=== PATIENT | female | born 1950 | race Caucasian/White ===

== ENCOUNTER → 2016-11-03 | Outpatient (CLI) | payer MEDICARE ==
[~2016-11-03] MED LIST: /LANS30GR; ADVAIR INH; ALLE25CA PO; AMLO10TAB PO; CALCCHW12 PO; CLAR5CHW; CYCL10TA3 PO; EPIP0.3I INJ; ESTR0.03 TOP; FLEXERIL; FOLI1TAB OR; HYDR10TA16 PO; HYDROCODONE PO; HYDROCORTISONE0.5 %; HYDRPOW28 PO; IBUP600T; LEVOXYL25 MCG PO; LIDO5DIS TOP; LISI10TA4 PO; MAXA10TA17 PO; MELOPOW PO; METH10TA2 PO; METH2.5T OR; METR0.00 TOP; MULTIVIT PO; OMEP20CA3 PO; OXYC10TA97 PO; PHEN 25 PO; PREV15CA PO; PREV30CA11 PO; RITA30CA; SERT100T PO; TRIAMCINOLONE TOP; VITA400C29 PO; VITACAP33 PO; VITAMIN B COMPLE1 PO; VITC PO; VITD PO; clobetasol TOP; mobic PO
[2016-11-03 13:50] LABS: BASO % 0.4 % (0.0-1.0); EOS % 0.7 % (0.0-3.0); LARGE UNSTAINED CELL # 0.1 K/mm3 (0.0-0.4); LARGE UNSTAINED CELL % 0.7 % (0.0-4.0); LYMPH # 0.8 K/mm3 (1.5-4.5); LYMPH % 10.4 % (24.0-44.0); MEAN CORPUSCULAR HEMOGLOBIN 31.7 pg (27.0-33.0); MEAN CORPUSCULAR HGB CONC 32.4 g/dl (32.0-36.5); MEAN CORPUSCULAR VOLUME 97.7 fl (80.0-96.0); MONO # 0.4 K/mm3 (0.0-0.8); MONO % 5.9 % (0.0-5.0); NEUTROPHILS # 5.7 K/mm3 (1.8-7.7); PLATELET COUNT, AUTOMATED 222 k/mm3 (150-450); RED CELL DISTRIBUTION WIDTH 14.5 % (11.5-14.5); WHITE BLOOD COUNT 6.9 K/mm3 (4.0-10.0)
[2016-11-03 14:49] LABS: ALT/SGPT 22 U/L (12-78); BLOOD UREA NITROGEN 15 MG/DL (7-18); CREATININE FOR GFR 0.99 MG/DL (0.55-1.02); GLOMERULAR FILTRATION RATE > 60.0 (>45)
== END ==
LOC: M WUC 10:37
PROVIDERS: ATTEND Internal Medicine Rheumatology
DX: M05.79 Rheumatoid arthritis with rheumatoid factor of multiple sites without organ or systems involvement (principal); N18.2 Chronic kidney disease, stage 2 (mild); Z51.81 Encounter for therapeutic drug level monitoring; Z79.899 Other long term (current) drug therapy

== ENCOUNTER → 2016-12-05 | Outpatient (CLI) | payer MEDICARE ==
--- NOTE | 2016-12-08 00:43 | ECWPNPC ---
PATIENT NAME: AMIE BRYANT : 1950 GENDER: FEMALE VISIT DATE: 12/05/2016 DISCHARGE DATE: 12/05/16 1029 VISIT LOCKED DATE TIME: PHYSICIAN: VALE VILLANUEVA RESOURCE: VALE VILLANUEVA REASON FOR APPOINTMENT 1. CHRONIC PAIN HISTORY OF PRESENT ILLNESS HISTORY OF PRESENT ILLNESS: PAIN THE PATIENT DESCRIBES THE PAIN... FALL RISK SCREENING: SCREENING :NO FALLS IN THE PAST YEAR TODAY'S VISIT: NOTES: RATES PAIN TODAY 3/10. DESCRIBES PAIN CONSTANT WITH INTERMITTENT EXACERBATIONS. NOTES IT IS ACHING AND BURNING SHARP STABBING TENDER SORE AND SHOOTING. HAS NEW ONSET OF LEFT CARPAL TUNNEL ISSUES AND TENNIS ELBOW. IS BEING TREATED BY NCO. REPORTS HER MEDICATIONS FOR PAIN CONTINUE TO PROVIDE RELIEF. STATES SHE HAS HAD NO ADVERSE REACTIONS. STATES THAT SHE TAKES THEM ONLY ORDERED.. CURRENT MEDICATIONS TAKING NORVASC 10 MG TABLET 1 TABLET ORALLY ONCE A DAY TAKING LUBRICANTS EYE GTTS/OTC LIQUID 1-2 DROPS OU NEEDED TAKING LEVOTHYROXINE SODIUM 100 MCG TABLET 1 TABLET EVERY MORNING ON AN EMPTY STOMACH ORALLY ONCE A DAY TAKING LIDODERM 5 % PATCH 1 PATCH TO INTACT SKIN REMOVE AFTER 12 HOURS EXTERNALLY ONCE A DAY NEEDED FOR SEVERE TENDER POINT PAIN TAKING MAXALT 10 MG TABLET 1 TABLET ORALLY NEEDED TAKING PREVACID 30 MG CAPSULE DELAYED RELEASE 1 CAPSULE BEFORE A MEAL ORALLY ONCE A DAY TAKING PROMETHAZINE HCL 25 MG TABLET 1 TAB(S) ORALLY EVERY 8 HOURS NEEDED TAKING VITAMIN B COMPLEX OTC TABLET 1 TABLET ORALLY ONCE A DAY TAKING VITAMIN C 500 MG TABLET 1 TABLET ORALLY TWICE A DAY TAKING CALCIUM + D 630MG/500IU TABLET 1 TABLET ORALLY TWICE A DAY TAKING VITAMIN D 2000 UNIT TABLET 1 CAPSULE ORALLY ONCE A DAY TAKING MULTIVITAMINS OTC TABLET 1 TABLET ORALLY ONCE A DAY TAKING CLOBETASOL PROPIONATE 0.05 % OINTMENT 1 APPLICATION TO AFFECTED AREA EXTERNALLY NEEDED TAKING FOLIC ACID 1 MG TABLET 1 TABLET ORALLY ONCE A DAY TAKING METHOTREXATE 2.5 MG TABLET 3 TABLETS ORALLY ONCE A WEEK TAKING SERTRALINE HCL 100 MG TABLET 1 TABLET ORALLY ONCE A DAY TAKING HYDROXYZINE HCL 10 MG TABLET 1 TABLET ORALLY NEEDED FOR ITCHING TAKING METRONIDAZOLE 0.75 % CREAM 1 APPLICATION TO AFFECTED AREA EXTERNALLY TWICE A DAY TAKING CYCLOBENZAPRINE HCL 10 MG TABLET 1 TABLET ORALLY TWICE A DAY NEEDED TAKING METHADONE HCL 10 MG TABLET 1 TABLET ORALLY EVERY 6 HRS. MDD= 4 CHRONIC PAIN TAKING NORCO 7.5-325 MG TABLET 1 1/2 TABLET ORALLY EVERY 4-6 HOURS PRN PAIN MDD=5 NOT-TAKING EPIPEN 0.3 MG/0.3ML (1:1000) DEVICE DIRECTED INTRAMUSCULAR NEEDED NOT-TAKING NORCO 7.5-325 MG TABLET 1 - 1 1/2 TABLET ORALLY EVERY 4 HRS PRN PAIN MDD=5 NOT-TAKING MELOXICAM 7.5 MG TABLET 1 TABLET ORALLY ONCE A DAY NEEDED FOR ARTHRITIC PAIN NOT-TAKING CLIMARA 0.025 MG/24HR PATCH WEEKLY 1 PATCH TO SKIN TO CLEAN, DRY SKIN TRANSDERMAL WEEKLY NOT-TAKING OXYCONTIN 40 MG TABLET EXTENDED RELEASE 12 HOUR 1 TABLET ORALLY EVERY 12 HRS NOT-TAKING LISINOPRIL 20 30 MG TABLET 1 TABLET ORAL ONCE A DAY NOT-TAKING CLIMARA 0.0375 MG/24HR PATCH WEEKLY 1 PATCH TO SKIN TO CLEAN, DRY SKIN TRANSDERMAL WEEKLY NOT-TAKING CLIMARA 0.05 MG/24HR PATCH WEEKLY 1 PATCH TO CLEAN, DRY SKIN TRANSDERMAL WEEKLY NOT-TAKING SALINE NASAL SPRAY 0.65 % SOLUTION 2 DROPS IN EACH NOSTRIL NEEDED NASALLY TWICE A DAY NEEDED DISCONTINUED NORCO 7.5-325 MG TABLET 1 TABLET NEEDED ORALLY Q4H PRN MDD5 DISCONTINUED HYDROCODONE-ACETAMINOPHEN 7.5/325 MG. 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[place], ?LUPUS CARPAL TUNNEL SYNDROME INFLAMMATORY ARTHRITIS RHEUMATOID ARTHRITIS TENDONITIS LEFT ELBOW ALLERGIES ALTACE: FATIGUE: SIDE EFFECTS METOPROLOL SUCCINATE: MUSCLE PAIN ,SOB: SIDE EFFECTS MORPHINE SULFATE: PAIN,CONSTIPATION,DRY MOUTH,SOB: SIDE EFFECTS NEURONTIN: DOES NOT HELP PAIN, WEIGHT GAIN: SIDE EFFECTS NORTRIPTYLINE HCL: NAUSEA/VOMITING: SIDE EFFECTS NORVASC: HIVES,SWELLING IN ANKLES, FEET AND EYELIDS: ALLERGY PRUDOXIN: ARMS TURNED RED AND SWELLED UP,FATIGUE: ALLERGY ROZEREM: MUSCLE AND JOINT PAIN: SIDE EFFECTS SONATA: SEVERE ITCHING: ALLERGY TOPAMAX: MUSCLE AND JOINT PAIN,EXHAUSTION: SIDE EFFECTS TRAMADOL-ACETAMINOPHEN: HEADACHES, MOUTH SORES: SIDE EFFECTS TRAZODONE HCL: SEVERE MUSCLE PAIN: SIDE EFFECTS AMOXICILLIN: SEVERE ITCHING, HIVES: ALLERGY OXYCODONE: HIVES,GENERIC FORM: ALLERGY METHADONE: INCREASED PAIN: SIDE EFFECTS INDERAL: CONFUSION: SIDE EFFECTS METHYLPHENIDATE: HIVES,RASH,FACIAL SWELLING: ALLERGY LYRICA: STOPPED WORKING, SWELLING OF HANDS AND FEET, WEIGHT GAIN: SIDE EFFECTS AMBIEN: DIZZINESS: SIDE EFFECTS AVAPRO: ITCHING AND FACIAL SWELLING: ALLERGY BIAXIN: NAUSEA/VOMITING: SIDE EFFECTS BYSTOLIC: PAIN AND ELECTRIC CURRENT SENSATION IN LEGS AND FEET: SIDE EFFECTS CARDIZEM: ITCHING,RASH: ALLERGY CLONIDINE HCL: MUSCLE AND JOINT PAIN: SIDE EFFECTS COLCHICINE: AFTER A FEW DAYS CAUSED INTENSE PAIN: ALLERGY COREG: MUSCLE PAIN: SIDE EFFECTS DYNACIRC CR: MIGRAINES: SIDE EFFECTS EFFEXOR: SOB,EXHAUSTION/GENERIC FORM: SIDE EFFECTS ESTRATEST H.S.: ITCHING, RASH: ALLERGY HYDRALAZINE HCL: RASH, SWELLING LEFT SIDE OF NECK,SEVERE CONSTIPATION, PAIN, WEAK: ALLERGY HYDROCHLOROTHIAZIDE: RASH, ITCHING: ALLERGY KETOPROFEN: HIVES,ITCHING, FACIAL SWELLING: ALLERGY LEVOXYL: CONSTIPATION/UPSET STOMACH: SIDE EFFECTS SULFA (FOR ALLERGY USE ONLY): ITCHING,RASH: ALLERGY NASONEX: MIGRAINES, NASAL PASSAGES VERY SORE: SIDE EFFECTS ADVIL: ITCHING, FACIAL SWELLING: ALLERGY CARDURA: ITCHING, RASH, FACIAL SWELLING, FREQUENT URINATION: ALLERGY IBUPROFEN: ITCHING, FACIAL SWELLING: ALLERGY AZELASTINE HCL: FELT VERY ILL: SIDE EFFECTS ASMANEX 120 METERED DOSES: EXHAUSTED AND WEAK, DID NOT HELP BREATHING: SIDE EFFECTS BACLOFEN: INTENSEPAIN AFTER A COUPLE WEEKS: SIDE EFFECTS LISINOPRIL: ANAPHYLAXIS: ALLERGY LISINOPRIL: SWELLING OF THROAT HIVES: ALLERGY SURGICAL HISTORY SHARIF/BSO 1997 TONSILLECTOMY CARPAL TUNNEL R LAPAROTOMY SEVERAL D & C'S COLONOSCOPY/ENDOSCOPY 01/2012 CARDIAC CATHETERIZATION SOCIAL HISTORY GENERAL: TOBACCO USE ARE YOU A:NONSMOKER LEARNING BARRIERS / SPECIAL NEEDS ORIENTED TO PLAN OF CARE: PATIENT, PAIN MANAGEMENT PATIENT, ORIENTED TO PLAN OF CARE: PATIENT, PAIN MANAGEMENT PATIENT. NEW PATIENT PAIN DIARY TODAY'S VISITNOTES FROM 0-10, WHAT LEVEL IS YOUR PAIN TODAY?0 PAIN CLINIC PFS, CLERGY, PUBLIC HEALTH REFERRALS PFS REFERRAL NEEDED?NO CLERGY REFERRAL NEEDED?NO PUBLIC HEALTH REFERRAL NEEDED?NO WAS THE PROVIDER NOTIFIED OF ANY PERTINENT INFO?NO PFS REFERRAL NEEDED?NO CLERGY REFERRAL NEEDED?NO PUBLIC HEALTH REFERRAL NEEDED?NO WAS THE PROVIDER NOTIFIED OF ANY PERTINENT INFO?NO REVIEW OF SYSTEMS CONSTITUTIONAL: LEVEL OF ENERGY NOTES INCREASED SENSITIVITY TO FOODS. . ANY CHANGE IN YOUR MEDICAL CONDITION? NO . CHILLS NO . FEVER NO . INFECTION: DO YOU HAVE NEW INFECTIONS? NO . DO YOU HAVE HISTORY OF MRSA? NO . MUSCULOSKELETAL: ANY NEW PATTERNS OF PAIN OR NUMBNESS? YES, TENDONITIS LEFT ELBOW AND CARPAL TUNNEL LEFT IS BOTHERING HER MORE . GASTROENTEROLOGY: GENERAL NAUSEA WITH CERTAIN FOODS . ANY NEW CHANGE IN BOWEL CONTROL? NO . GENITOURINARY: ANY NEW CHANGE IN BLADDER CONTROL? NO . IS THERE A CHANCE YOU COULD BE ? NO . HEMATOLOGY/LYMPH: DO YOU TAKE ANY BLOOD THINNERS? (FOR EXAMPLE- COUMADIN, PLAVIX, AGGRENOX, PLATEL, PRADAXA, OR XARELTO) NO . WHEN WAS YOUR LAST DOSE? DATE: TIME: . NEUROLOGY: HAVE YOU FALLEN IN THE PAST 6 MONTHS? NO . ANY NEW EXTREMITY NUMBNESS OR WEAKNESS? NO . CARDIOLOGY: DO YOU HAVE A PACEMAKER OR DEFIBRILLATOR? NO . CHEST PAIN PATIENT DENIES . RESPIRATORY: HAVE YOU BEEN SICK IN THE PAST WEEK? NO DID HAVE RECENT URI . FEVER NO . FLU LIKE SYMPTOMS? NO . COUGH NO . INTEGUMENTARY: DO YOU HAVE ANY RASHES OR OPEN SORES? NO . ALLERGIC/IMMUNO: ARE YOU ALLERGIC TO SHELLFISH OR IV DYE? NO . ANY NEW ALLERGIES? NO . PSYCHIATRIC: DO YOU HAVE THOUGHTS OF HURTING YOURSELF OR SOMEONE ELSE? NO . ARE YOU ABUSED, NEGLECTED, OR IN AN UNSAFE ENVIRONMENT? NO . ENDOCRINOLOGY: ARE YOU DIABETIC? NO . OTHER: DO YOU NEED ANY PRESCRIPTIONS? NO . IF YES, PLEASE LIST: ____ . ANY NEW PROBLEMS WITH YOUR MEDICATIONS? NO . WHEN DID YOU LAST EAT? ____ . WHEN DID YOU LAST DRINK? ____ . WHAT DID YOU LAST DRINK? ____ . NAME OF PERSON DRIVING YOU HOME? ____ . DO YOU HAVE ANY OTHER QUESTIONS OR CONCERNS NO . REVIEWED BY: PROVIDER: VALE JOHNSON . VITAL SIGNS WT 165.4 LBS, HT 63", BMI 29.30 INDEX, BP 170/92 MM HG, HR 109 /MIN, RR 18 /MIN, TEMP 97.8 F, OXYGEN SAT % 99%, NA INITIALS SC 09:49, REVIEWED BY: AD. EXAMINATION GENERAL EXAMINATION: LUNGS:CLEAR TO AUSCULTATION BILATERALLY. HEART:HEART RATE REGULAR. MUSCULOSKELETAL:GENERALIZED TENDERNESS ABOVE/BELOW WAIST, BOTH SIDES OF BODY, CONSISTANT WITH FIBROMYALGIA. POINT TENDERNESS OVER MID THORACIC SPINOUS PROCESSES. NEUROLOGIC EXAM:POSITIVE TINELS LEFT WRIST - MILD TENDERNESS. ASSESSMENTS FIBROMYALGIA - M79.7 (PRIMARY) CHRONIC PRESCRIPTION OPIATE USE - Z79.891 TREATMENT FIBROMYALGIA NOTES: CONTINUE CURRENT MEDS.KEEP ACTIVE POSSIBLE. REST WHEN NEEDED, FALLS CARE PLAN: 1. RECOMMEND REMOVING ALL THROW RUGS. 2. RECOMMEND NIGHT LIGHTS 3. RECOMMEND WEARING RUBBER SOLED SHOES AND TO NOT GO BAREFOOT. 4.. ADVISED TO CHANGE POSITION SLOWLY FROM SUPINE TO STANDING TO AVOID DIZZINESS. 5. ADVISED TO USE ASSISTIVE DEVICE SUCH CANE OR WALKER 6. USE LIF[employer] SERVICES OR KEEP PORTABLE PHONE READILY AVAILABLE. CLINICAL NOTES: ISTOP REGISTRY REVIEWED AND DEMNOSTRATES COMPLLIANCE. BRINGS IN MEDICATIONS WHICH IS APPROPRIATE FOR WHAT WAS DISPENSED. RECENT URINE TOXICOLOGY REVIEWED. NO UNAUTHORIZED MEDICATIONS. NO ILLICIT SUBSTANCES AND PRESCRIBED MEDICATIONS WERE PRESENT. PROCEDURE CODES FA211 ESTABILISHED PATIENT [facility] FACILITY CHARGE G8783 BP SCR PRFRM RCMDD DEFIND SCR INTVL G8730 PAIN ASSESS POS TOOL F/U PLAN DOC 3016F PT SCRND UNHLTHY [place] USE 1123F ACP DISCUSS/DSCN MKR DOCD 1036F TOBACCO NON-USER 0518F FALL PLAN OF CARE DOCD G8427 DOC MEDS VERIFIED W/PT OR RE G8420 BMI<30 AND >=22 CALC & DOCU 3288F FALL RISK ASSESSMENT DOCD DISPOSITION & COMMUNICATION FOLLOW UP 2-3 MONTHS ELECTRONICALLY SIGNED BY VERA PEARSON ON 12/07/2016 AT 12:59 PM EST DISCLAIMER : THIS IS A VISIT SUMMARY EXTRACTED FROM THE [employer] CHART. IT IS NOT A COPY OF THE [employer] PROGRESS NOTE. MTDD
== END ==
LOC: M PAIN 09:40
PROVIDERS: ATTEND Nurse Practitioner Family
DX: G89.29 Other chronic pain (principal); M79.7 Fibromyalgia; Z79.891 Long term (current) use of opiate analgesic; Z79.899 Other long term (current) drug therapy; Z88.1 Allergy status to other antibiotic agents; Z88.2 Allergy status to sulfonamides; Z88.8 Allergy status to other drugs, medicaments and biological substances

== ENCOUNTER → 2016-12-15 | Outpatient (REF) | payer MEDICARE ==
[2016-12-15 11:53] LABS: BASO % 0.1 % (0.0-1.0); EOS # 0.1 K/mm3 (0.0-0.50); EOS % 2.3 % (0.0-3.0); LARGE UNSTAINED CELL # 0.1 K/mm3 (0.0-0.4); LARGE UNSTAINED CELL % 1.9 % (0.0-4.0); LYMPH # 0.7 K/mm3 (1.5-4.5); LYMPH % 12.9 % (24.0-44.0); MEAN CORPUSCULAR HEMOGLOBIN 31.4 pg (27.0-33.0); MEAN CORPUSCULAR HGB CONC 33.1 g/dl (32.0-36.5); MONO # 0.3 K/mm3 (0.0-0.8); MONO % 6.4 % (0.0-5.0); NEUTROPHILS # 3.9 K/mm3 (1.8-7.7); NEUTROPHILS % 76.4 % (36.0-66.0); PLATELET COUNT, AUTOMATED 184 k/mm3 (150-450); RED CELL DISTRIBUTION WIDTH 13.7 % (11.5-14.5)
[2016-12-15 12:38] LABS: ALBUMIN 3.8 GM/DL (3.2-5.2); ALT/SGPT 20 U/L (12-78); BLOOD UREA NITROGEN 14 MG/DL (7-18); CREATININE FOR GFR 0.91 MG/DL (0.55-1.02); GLOMERULAR FILTRATION RATE > 60.0 (>45)
== END ==
LOC: M LABDRAW1 10:00
PROVIDERS: ATTEND Internal Medicine Rheumatology
DX: M05.79 Rheumatoid arthritis with rheumatoid factor of multiple sites without organ or systems involvement (principal); Z79.899 Other long term (current) drug therapy; N18.2 Chronic kidney disease, stage 2 (mild)

== ENCOUNTER → 2017-01-10 | Outpatient (CLI) | payer MEDICARE ==
--- NOTE | 2017-01-10 11:36 | REPMRS ---
Patient History The patient states she had a clinical breast exam in 12/2016. Patient is postmenopausal. No known family history of cancer. Took estrogen for 18 years. Digital Woman Screen Mammo: January 10, 2017 - Exam #: [id number] Bilateral CC and MLO view(s) were taken. Technologist: Monica Oakley Technologist Prior study comparison: December 10, 2015, digital woman screen mammo performed at [facility]. December 09, 2014, digital woman screen mammo performed at [facility]. December 05, 2013, digital woman screen mammo performed at [facility]. FINDINGS: There are scattered fibroglandular densities. There has been no change in the appearance of the mammogram from the prior studies. There is a moderate amount of residual retroareolar fibroglandular tissue which is fairly symmetric. There is no interval development of dominant mass, architectural distortion, or clustered microcalcification suggestive of malignancy. There are benign arterial calcifications noted. There is a benign appearing intramammary node in the upper outer quadrant of the right breast. Scattered lymph nodes are seen in the axillae. No significant changes when compared with prior studies. ASSESSMENT: BI-RADS/ACR category 2 mammogram. Benign finding(s). Recommendation Routine screening mammogram in 1 year (for women over age 40). This mammogram was interpreted with the aid of an FDA-approved computer-aided dectection system. A. Negative x-ray reports should not delay biopsy if a dominant or clinically suspicious mass is present. B. Four to eight percent of cancers are not identified by mammography. C. Adenosis and dense breast may obscure an underlying neoplasm. Electronically Signed By: Garcia Holman MD 01/10/17 2383
== END ==
LOC: M WHC 10:09
PROVIDERS: ATTEND Nurse Practitioner Family
DX: Z12.31 Encounter for screening mammogram for malignant neoplasm of breast (principal); Z78.0 Asymptomatic menopausal state
CPT/HCPCS: G0202; G0463

== ENCOUNTER → 2017-02-09 | Outpatient (REF) | payer MEDICARE ==
[2017-02-09 16:15] LABS: ALBUMIN 3.8 GM/DL (3.2-5.2); ALT/SGPT 18 U/L (12-78); BLOOD UREA NITROGEN 15 MG/DL (7-18); CREATININE FOR GFR 0.98 MG/DL (0.55-1.02); GLOMERULAR FILTRATION RATE > 60.0 (>45)
[2017-02-09 16:46] LABS: BASO % 0.1 % (0.0-1.0); EOS # 0.2 K/mm3 (0.0-0.50); EOS % 3.1 % (0.0-3.0); LARGE UNSTAINED CELL # 0.1 K/mm3 (0.0-0.4); LARGE UNSTAINED CELL % 1.6 % (0.0-4.0); LYMPH # 0.9 K/mm3 (1.5-4.5); LYMPH % 17.7 % (24.0-44.0); MEAN CORPUSCULAR HEMOGLOBIN 33.3 pg (27.0-33.0); MEAN CORPUSCULAR VOLUME 97.8 fl (80.0-96.0); MONO # 0.4 K/mm3 (0.0-0.8); MONO % 7.1 % (0.0-5.0); NEUTROPHILS # 3.5 K/mm3 (1.8-7.7); NEUTROPHILS % 70.5 % (36.0-66.0); PLATELET COUNT, AUTOMATED 203 k/mm3 (150-450); RED CELL DISTRIBUTION WIDTH 13.7 % (11.5-14.5); WHITE BLOOD COUNT 4.9 K/mm3 (4.0-10.0)
== END ==
LOC: M LABDRAW1 13:24
PROVIDERS: ATTEND Internal Medicine Rheumatology
DX: N18.2 Chronic kidney disease, stage 2 (mild) (principal); Z79.899 Other long term (current) drug therapy; M05.79 Rheumatoid arthritis with rheumatoid factor of multiple sites without organ or systems involvement

== ENCOUNTER → 2017-02-23 | Outpatient (REF) | payer MEDICARE | LOC: M LABDRAW1 12:25 | PROVIDERS: ATTEND Internal Medicine Rheumatology | DX: M05.79 Rheumatoid arthritis with rheumatoid factor of multiple sites without organ or systems involvement (principal); Z51.81 Encounter for therapeutic drug level monitoring; Z79.899 Other long term (current) drug therapy ==

== ENCOUNTER → 2017-02-26 | Outpatient (REF) | payer MEDICARE ==
[2017-02-26 14:59] LABS: CRYSTALS, BODY FLUID NONE SEEN (NONE SEEN)
[2017-02-26 15:21] LABS: BF DIFF IF INDICATED? YES (NO); HCT SOURCE RT KNEE; RBC ADVIA BF 0; RBC CALC. BF < 10000 (< 10mm3 cells/uL); SYNOVIAL FLUID COLOR PALE YELLOW (YELLOW); WBC ADVIA BF 0.04; WBC CALC. BF 40 cells/uL (0-20)
[2017-02-26 17:21] LABS: CC BF DIFF EXAM CYTOCENTRIFUGE
== END ==
LOC: M LAB REF 14:34
PROVIDERS: ATTEND Internal Medicine Rheumatology
DX: M05.79 Rheumatoid arthritis with rheumatoid factor of multiple sites without organ or systems involvement (principal); M17.11 Unilateral primary osteoarthritis, right knee

== ENCOUNTER → 2017-03-05 | Outpatient (CLI) | payer MEDICARE ==
--- NOTE | 2017-03-09 01:12 | ECWPNPC ---
PATIENT NAME: AMIE BRYANT : 1950 GENDER: FEMALE VISIT DATE: 03/05/2017 DISCHARGE DATE: 03/05/17 1139 VISIT LOCKED DATE TIME: PHYSICIAN: VALE VILLANUEVA RESOURCE: VALE VILLANUEVA REASON FOR APPOINTMENT 1. CHRONIC PAIN HISTORY OF PRESENT ILLNESS HISTORY OF PRESENT ILLNESS: PAIN THE PATIENT DESCRIBES THE PAIN... FALL RISK SCREENING: SCREENING :NO FALLS IN THE PAST YEAR TODAY'S VISIT: NOTES: RATES PAIN TODAY 4/10. STATES IS HAVING ISSUES WITH POSTERIOR KNEE AND CALF PAIN. HAS HAD 2 EPISODES INTHE LAST FEW WEEKS. THIS IS BETTER TODAY. HAS BEEN HAVING SWELLING IN KNEES, AND SAW RHEUMATOLIST DR MUELLER WHO WANTS HER TO TALK TO US. HE ASPIRATED FLUID FROM RIGHT KNEE AND THIS WAS SENT FOR TESTING. HAD INJECTION OF CORTISONE TO RIGHT KNEE AND THIS HELPED BOTH KNEES. NO NEW N/T IN LEGS OR FEET. NOW IS HAVING A INTENSE PRESSURE SENSATION IN MID THORACIC SPINE. FEELS BEST WHEN LAYING DOWN.. CURRENT MEDICATIONS TAKING NORVASC 10 MG TABLET 1 TABLET ORALLY ONCE A DAY TAKING LUBRICANTS EYE GTTS/OTC LIQUID 1-2 DROPS OU NEEDED TAKING LEVOTHYROXINE SODIUM 100 MCG TABLET 1 TABLET EVERY MORNING ON AN EMPTY STOMACH ORALLY ONCE A DAY TAKING LIDODERM 5 % PATCH 1 PATCH TO INTACT SKIN REMOVE AFTER 12 HOURS EXTERNALLY ONCE A DAY NEEDED FOR SEVERE TENDER POINT PAIN TAKING MAXALT 10 MG TABLET 1 TABLET ORALLY NEEDED TAKING PREVACID 30 MG CAPSULE DELAYED RELEASE 1 CAPSULE BEFORE A MEAL ORALLY ONCE A DAY TAKING PROMETHAZINE HCL 25 MG TABLET 1 TAB(S) ORALLY EVERY 8 HOURS NEEDED TAKING VITAMIN B COMPLEX OTC TABLET 1 TABLET ORALLY ONCE A DAY TAKING VITAMIN C 500 MG TABLET 1 TABLET ORALLY TWICE A DAY TAKING CALCIUM + D 630MG/500IU TABLET 1 TABLET ORALLY TWICE A DAY TAKING VITAMIN D 2000 UNIT TABLET 1 CAPSULE ORALLY ONCE A DAY TAKING MULTIVITAMINS OTC TABLET 1 TABLET ORALLY ONCE A DAY TAKING CLOBETASOL PROPIONATE 0.05 % OINTMENT 1 APPLICATION TO AFFECTED AREA EXTERNALLY NEEDED TAKING FOLIC ACID 1 MG TABLET 1 TABLET ORALLY ONCE A DAY TAKING METHOTREXATE 2.5 MG TABLET 3 TABLETS ORALLY ONCE A WEEK TAKING SERTRALINE HCL 100 MG TABLET 1 TABLET ORALLY ONCE A DAY TAKING HYDROXYZINE HCL 10 MG TABLET 1 TABLET ORALLY NEEDED FOR ITCHING TAKING METRONIDAZOLE 0.75 % CREAM 1 APPLICATION TO AFFECTED AREA EXTERNALLY TWICE A DAY TAKING CYCLOBENZAPRINE HCL 10 MG TABLET 1 TABLET ORALLY TWICE A DAY NEEDED TAKING METHADONE HCL 10 MG TABLET 1 TABLET ORALLY EVERY 6 HRS. 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[place], ?LUPUS CARPAL TUNNEL SYNDROME INFLAMMATORY ARTHRITIS RHEUMATOID ARTHRITIS TENDONITIS LEFT ELBOW ALLERGIES ALTACE: FATIGUE: SIDE EFFECTS METOPROLOL SUCCINATE: MUSCLE PAIN ,SOB: SIDE EFFECTS MORPHINE SULFATE: PAIN,CONSTIPATION,DRY MOUTH,SOB: SIDE EFFECTS NEURONTIN: DOES NOT HELP PAIN, WEIGHT GAIN: SIDE EFFECTS NORTRIPTYLINE HCL: NAUSEA/VOMITING: SIDE EFFECTS NORVASC: HIVES,SWELLING IN ANKLES, FEET AND EYELIDS: ALLERGY PRUDOXIN: ARMS TURNED RED AND SWELLED UP,FATIGUE: ALLERGY ROZEREM: MUSCLE AND JOINT PAIN: SIDE EFFECTS SONATA: SEVERE ITCHING: ALLERGY TOPAMAX: MUSCLE AND JOINT PAIN,EXHAUSTION: SIDE EFFECTS TRAMADOL-ACETAMINOPHEN: HEADACHES, MOUTH SORES: SIDE EFFECTS TRAZODONE HCL: SEVERE MUSCLE PAIN: SIDE EFFECTS AMOXICILLIN: SEVERE ITCHING, HIVES: ALLERGY OXYCODONE: HIVES,GENERIC FORM: ALLERGY METHADONE: INCREASED PAIN: SIDE EFFECTS INDERAL: CONFUSION: SIDE EFFECTS METHYLPHENIDATE: HIVES,RASH,FACIAL SWELLING: ALLERGY LYRICA: STOPPED WORKING, SWELLING OF HANDS AND FEET, WEIGHT GAIN: SIDE EFFECTS AMBIEN: DIZZINESS: SIDE EFFECTS AVAPRO: ITCHING AND FACIAL SWELLING: ALLERGY BIAXIN: NAUSEA/VOMITING: SIDE EFFECTS BYSTOLIC: PAIN AND ELECTRIC CURRENT SENSATION IN LEGS AND FEET: SIDE EFFECTS CARDIZEM: ITCHING,RASH: ALLERGY CLONIDINE HCL: MUSCLE AND JOINT PAIN: SIDE EFFECTS COLCHICINE: AFTER A FEW DAYS CAUSED INTENSE PAIN: ALLERGY COREG: MUSCLE PAIN: SIDE EFFECTS DYNACIRC CR: MIGRAINES: SIDE EFFECTS EFFEXOR: SOB,EXHAUSTION/GENERIC FORM: SIDE EFFECTS ESTRATEST H.S.: ITCHING, RASH: ALLERGY HYDRALAZINE HCL: RASH, SWELLING LEFT SIDE OF NECK,SEVERE CONSTIPATION, PAIN, WEAK: ALLERGY HYDROCHLOROTHIAZIDE: RASH, ITCHING: ALLERGY KETOPROFEN: HIVES,ITCHING, FACIAL SWELLING: ALLERGY LEVOXYL: CONSTIPATION/UPSET STOMACH: SIDE EFFECTS SULFA (FOR ALLERGY USE ONLY): ITCHING,RASH: ALLERGY NASONEX: MIGRAINES, NASAL PASSAGES VERY SORE: SIDE EFFECTS ADVIL: ITCHING, FACIAL SWELLING: ALLERGY CARDURA: ITCHING, RASH, FACIAL SWELLING, FREQUENT URINATION: ALLERGY IBUPROFEN: ITCHING, FACIAL SWELLING: ALLERGY AZELASTINE HCL: FELT VERY ILL: SIDE EFFECTS ASMANEX 120 METERED DOSES: EXHAUSTED AND WEAK, DID NOT HELP BREATHING: SIDE EFFECTS BACLOFEN: INTENSEPAIN AFTER A COUPLE WEEKS: SIDE EFFECTS LISINOPRIL: ANAPHYLAXIS: ALLERGY REVIEW OF SYSTEMS CONSTITUTIONAL: ANY CHANGE IN YOUR MEDICAL CONDITION? NO . CHILLS NO . FEVER NO . INFECTION: DO YOU HAVE NEW INFECTIONS? NO . DO YOU HAVE HISTORY OF MRSA? NO . MUSCULOSKELETAL: ANY NEW PATTERNS OF PAIN OR NUMBNESS? NO . GASTROENTEROLOGY: ANY NEW CHANGE IN BOWEL CONTROL? NO . GENITOURINARY: ANY NEW CHANGE IN BLADDER CONTROL? NO . IS THERE A CHANCE YOU COULD BE ? NO . HEMATOLOGY/LYMPH: DO YOU TAKE ANY BLOOD THINNERS? (FOR EXAMPLE- COUMADIN, PLAVIX, AGGRENOX, PLATEL, PRADAXA, OR XARELTO) NO . WHEN WAS YOUR LAST DOSE? DATE: TIME: . NEUROLOGY: HAVE YOU FALLEN IN THE PAST 6 MONTHS? NO . ANY NEW EXTREMITY NUMBNESS OR WEAKNESS? NO . CARDIOLOGY: DO YOU HAVE A PACEMAKER OR DEFIBRILLATOR? NO . RESPIRATORY: HAVE YOU BEEN SICK IN THE PAST WEEK? NO . FEVER NO . FLU LIKE SYMPTOMS? NO . COUGH NO . INTEGUMENTARY: DO YOU HAVE ANY RASHES OR OPEN SORES? NO . ALLERGIC/IMMUNO: ARE YOU ALLERGIC TO SHELLFISH OR IV DYE? NO . ANY NEW ALLERGIES? NO . PSYCHIATRIC: DO YOU HAVE THOUGHTS OF HURTING YOURSELF OR SOMEONE ELSE? NO . ARE YOU ABUSED, NEGLECTED, OR IN AN UNSAFE ENVIRONMENT? NO . ENDOCRINOLOGY: ARE YOU DIABETIC? NO . OTHER: DO YOU NEED ANY PRESCRIPTIONS? NO . IF YES, PLEASE LIST: ____ . ANY NEW PROBLEMS WITH YOUR MEDICATIONS? NO . WHEN DID YOU LAST EAT? ____ . WHEN DID YOU LAST DRINK? ____ . WHAT DID YOU LAST DRINK? ____ . NAME OF PERSON DRIVING YOU HOME? ____ . DO YOU HAVE ANY OTHER QUESTIONS OR CONCERNS NO . REVIEWED BY: PROVIDER: VALE JOHNSON . VITAL SIGNS WT 164 LBS, HT 63", BMI 29.05 INDEX, BP 162/80 MM HG, HR 106 /MIN, RR 18 /MIN, TEMP 97.8 F, OXYGEN SAT % 98, NA INITIALS MP, REVIEWED BY: AD. EXAMINATION GENERAL EXAMINATION: LUNGS:CLEAR TO AUSCULTATION BILATERALLY. HEART:HEART RATE REGULAR. MUSCULOSKELETAL:GENERALIZED TENDERNESS ABOVE/BELOW WAIST, BOTH SIDES OF BODY, CONSISTANT WITH FIBROMYALGIA. POINT TENDERNESS OVER MID THORACIC SPINOUS PROCESSES. SOME EDEMA AND EXQUISITE TENDERNESS WITH PALPATION AT MEDIAL KNEES. RIGHT > LEFT.. ASSESSMENTS FIBROMYALGIA - M79.7 (PRIMARY) CHRONIC PRESCRIPTION OPIATE USE - Z79.891 TREATMENT FIBROMYALGIA NOTES: UTOX TODAY. WILL DISCUSS OPTION OF TTRIGGER POINT INJECTION AND /OR FACET BLOCK AT NEXT VISITDO EXERCISES AND STRETCHES NEED EKG FOR MEDICATION MONITORING. CLINICAL NOTES: ISTOP REGISTRY REVIEWED AND DEMNOSTRATES COMPLLIANCE. BRINGS IN MEDICATIONS WHICH IS APPROPRIATE FOR WHAT WAS DISPENSED. RECENT URINE TOXICOLOGY REVIEWED. NO UNAUTHORIZED MEDICATIONS. NO ILLICIT SUBSTANCES AND PRESCRIBED MEDICATIONS WERE PRESENT. PROCEDURE CODES FA211 ESTABILISHED PATIENT [facility] FACILITY CHARGE G8730 PAIN ASSESS POS TOOL F/U PLAN DOC G8427 DOC MEDS VERIFIED W/PT OR RE DISPOSITION & COMMUNICATION FOLLOW UP 1 MONTH (REASON: BACK PAIN/GENERALIZED PAIN) ELECTRONICALLY SIGNED BY VERA PEARSON ON 03/08/2017 AT 08:39 AM EDT DISCLAIMER : THIS IS A VISIT SUMMARY EXTRACTED FROM THE [employer] CHART. IT IS NOT A COPY OF THE [employer] PROGRESS NOTE. MTDD
== END ==
LOC: M PAIN 09:40
PROVIDERS: ATTEND Nurse Practitioner Family
DX: M79.7 Fibromyalgia (principal); G89.29 Other chronic pain; Z79.891 Long term (current) use of opiate analgesic; Z79.899 Other long term (current) drug therapy; Z88.0 Allergy status to penicillin; Z88.2 Allergy status to sulfonamides; Z88.6 Allergy status to analgesic agent; Z88.8 Allergy status to other drugs, medicaments and biological substances

== ENCOUNTER → 2017-03-30 | Outpatient (REF) | payer MEDICARE ==
[2017-03-30 17:21] LABS: BASO % 0.2 % (0.0-1.0); EOS # 0.1 K/mm3 (0.0-0.50); EOS % 1.1 % (0.0-3.0); LARGE UNSTAINED CELL # 0.1 K/mm3 (0.0-0.4); LARGE UNSTAINED CELL % 1.1 % (0.0-4.0); LYMPH # 0.9 K/mm3 (1.5-4.5); LYMPH % 13.5 % (24.0-44.0); MEAN CORPUSCULAR HEMOGLOBIN 32.4 pg (27.0-33.0); MEAN CORPUSCULAR VOLUME 98.3 fl (80.0-96.0); MONO # 0.4 K/mm3 (0.0-0.8); MONO % 6.2 % (0.0-5.0); NEUTROPHILS # 5.1 K/mm3 (1.8-7.7); NEUTROPHILS % 77.9 % (36.0-66.0); PLATELET COUNT, AUTOMATED 229 k/mm3 (150-450); RED CELL DISTRIBUTION WIDTH 13.7 % (11.5-14.5); WHITE BLOOD COUNT 6.5 K/mm3 (4.0-10.0)
[2017-03-30 18:17] LABS: ALBUMIN 3.8 GM/DL (3.2-5.2); ALT/SGPT 25 U/L (12-78); BLOOD UREA NITROGEN 12 MG/DL (7-18); CREATININE FOR GFR 0.91 MG/DL (0.55-1.02); GLOMERULAR FILTRATION RATE > 60.0 (>45)
== END ==
LOC: M LABDRAW1 15:47
PROVIDERS: ATTEND Internal Medicine Rheumatology
DX: M05.79 Rheumatoid arthritis with rheumatoid factor of multiple sites without organ or systems involvement (principal); N18.2 Chronic kidney disease, stage 2 (mild); Z51.81 Encounter for therapeutic drug level monitoring; Z79.899 Other long term (current) drug therapy

== ENCOUNTER → 2017-03-30 | Outpatient (CLI) | payer MEDICARE ==
--- NOTE | 2017-03-31 08:45 | ECGEPIP ---
Stationary ECG Study [facility] Test Date: 2017-03-30 Pat Name: AMIE BRYANT Department: Room: - Gender: F Online Media Buyer: MILANA : 1950 Requested By: Marta JOHNSON Order Number: [id number] Reading MD: Duane Alonso Measurements Intervals Clubb Rate: 80 P: 81 KS: 123 QRS: 33 QRSD: 79 T: 43 QT: 379 QTc: 438 Interpretive Statements Normal sinus rhythm Normal EKG No significant change compared to prior tracing of 12/09/2014 Electronically Signed On 03-31-2017 8:45:08 EDT by Duane Alonso
== END ==
LOC: M EKG 10:30
PROVIDERS: ATTEND Nurse Practitioner Family
DX: M79.7 Fibromyalgia (principal); Z51.81 Encounter for therapeutic drug level monitoring; Z79.891 Long term (current) use of opiate analgesic; M05.79 Rheumatoid arthritis with rheumatoid factor of multiple sites without organ or systems involvement; N18.2 Chronic kidney disease, stage 2 (mild); Z79.899 Other long term (current) drug therapy

== ENCOUNTER → 2017-06-01 | Outpatient (REF) | payer MEDICARE ==
[~2017-06-01] MED LIST changes: +ARTI99.0 OU; +MOTR200T44 PO; +PREV1CAP PO; -PREV30CA11 PO; +TERA1CAP46 PO; +VITA100067 PO
[2017-06-01 12:53] LABS: BASO % 0.1 % (0.0-1.0); EOS # 0.1 K/mm3 (0.0-0.50); LARGE UNSTAINED CELL # 0.1 K/mm3 (0.0-0.4); LARGE UNSTAINED CELL % 1.2 % (0.0-4.0); LYMPH # 0.8 K/mm3 (1.5-4.5); LYMPH % 14.8 % (24.0-44.0); MEAN CORPUSCULAR HEMOGLOBIN 33.1 pg (27.0-33.0); MEAN CORPUSCULAR HGB CONC 34.2 g/dl (32.0-36.5); MEAN CORPUSCULAR VOLUME 96.7 fl (80.0-96.0); MONO # 0.3 K/mm3 (0.0-0.8); MONO % 6.2 % (0.0-5.0); NEUTROPHILS # 3.8 K/mm3 (1.8-7.7); NEUTROPHILS % 75.7 % (36.0-66.0); PLATELET COUNT, AUTOMATED 197 k/mm3 (150-450); RED CELL DISTRIBUTION WIDTH 13.7 % (11.5-14.5)
[2017-06-01 13:19] LABS: ALBUMIN 3.8 GM/DL (3.2-5.2); ALT/SGPT 25 U/L (12-78); BLOOD UREA NITROGEN 14 MG/DL (7-18); GLOMERULAR FILTRATION RATE > 60.0 (>45)
== END ==
LOC: M LABDRAW1 12:01
PROVIDERS: ATTEND Internal Medicine Rheumatology
DX: M05.79 Rheumatoid arthritis with rheumatoid factor of multiple sites without organ or systems involvement (principal); N18.2 Chronic kidney disease, stage 2 (mild); Z51.81 Encounter for therapeutic drug level monitoring; Z79.899 Other long term (current) drug therapy

== ENCOUNTER → 2017-06-14 | Outpatient (CLI) | payer MEDICARE ==
--- NOTE | 2017-06-30 00:13 | ECWPNPC ---
PATIENT NAME: AMIE BRYANT : 1950 GENDER: FEMALE VISIT DATE: 06/14/2017 DISCHARGE DATE: 06/14/17 1152 VISIT LOCKED DATE TIME: PHYSICIAN: VALE VILLANUEVA RESOURCE: VALE VILLANUEVA REASON FOR APPOINTMENT 1. MEDS HISTORY OF PRESENT ILLNESS HISTORY OF PRESENT ILLNESS: PAIN THE PATIENT DESCRIBES THE PAIN... FALL RISK SCREENING: SCREENING :NO FALLS IN THE PAST YEAR TODAY'S VISIT: NOTES: RATES PAIN TODAY 10. NOTES SHE IS HAVING A LOT OF PAINWAS PUT IN A BRACE FOR HER RIGHT KNEE. HAD MARKED PAIN WITH THIS AND HAD SUBSEQUENT MRI WHICH IS SHOWING A FIBULAR FRACTURE. WAS RECENTLY PUT ON A COURSE OF STEROIDS BY DR LUJAN. CURRENT MEDICATIONS TAKING NORVASC 10 MG TABLET 1 TABLET ORALLY ONCE A DAY TAKING LUBRICANTS EYE GTTS/OTC LIQUID 1-2 DROPS OU NEEDED TAKING LEVOTHYROXINE SODIUM 100 MCG TABLET 1 TABLET EVERY MORNING ON AN EMPTY STOMACH ORALLY ONCE A DAY TAKING LIDODERM 5 % PATCH 1 PATCH TO INTACT SKIN REMOVE AFTER 12 HOURS EXTERNALLY ONCE A DAY NEEDED FOR SEVERE TENDER POINT PAIN TAKING MAXALT 10 MG TABLET 1 TABLET ORALLY NEEDED TAKING PREVACID 30 MG CAPSULE DELAYED RELEASE 1 CAPSULE BEFORE A MEAL ORALLY ONCE A DAY TAKING VITAMIN B COMPLEX OTC TABLET 1 TABLET ORALLY ONCE A DAY TAKING VITAMIN C 500 MG TABLET 1 TABLET ORALLY TWICE A DAY TAKING CALCIUM + D 630MG/500IU TABLET 1 TABLET ORALLY TWICE A DAY TAKING VITAMIN D 2000 UNIT TABLET 1 CAPSULE ORALLY ONCE A DAY TAKING MULTIVITAMINS OTC TABLET 1 TABLET ORALLY ONCE A DAY TAKING CLOBETASOL PROPIONATE 0.05 % OINTMENT 1 APPLICATION TO AFFECTED AREA EXTERNALLY NEEDED TAKING FOLIC ACID 1 MG TABLET 1 TABLET ORALLY ONCE A DAY TAKING METHOTREXATE 2.5 MG TABLET 3 TABLETS ORALLY ONCE A WEEK TAKING SERTRALINE HCL 100 MG TABLET 1 TABLET ORALLY ONCE A DAY TAKING HYDROXYZINE HCL 10 MG TABLET 1 TABLET ORALLY NEEDED FOR ITCHING TAKING METRONIDAZOLE 0.75 % CREAM 1 APPLICATION TO AFFECTED AREA EXTERNALLY TWICE A DAY TAKING CYCLOBENZAPRINE HCL 10 MG TABLET 1 TABLET ORALLY TWICE A DAY NEEDED TAKING PROMETHAZINE HCL 25 MG TABLET 1 TAB(S) ORALLY EVERY 8 HOURS NEEDED TAKING NORCO 7.5-325 MG TABLET 1 1/2 TABLET ORALLY EVERY 4-6 HOURS PRN PAIN MDD=5 TAKING METHADONE HCL 10 MG TABLET 1 TABLET ORALLY EVERY 6 HRS. 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[place], ?LUPUS CARPAL TUNNEL SYNDROME INFLAMMATORY ARTHRITIS RHEUMATOID ARTHRITIS TENDONITIS LEFT ELBOW ALLERGIES ALTACE: FATIGUE: SIDE EFFECTS METOPROLOL SUCCINATE: MUSCLE PAIN ,SOB: SIDE EFFECTS MORPHINE SULFATE: PAIN,CONSTIPATION,DRY MOUTH,SOB: SIDE EFFECTS NEURONTIN: DOES NOT HELP PAIN, WEIGHT GAIN: SIDE EFFECTS NORTRIPTYLINE HCL: NAUSEA/VOMITING: SIDE EFFECTS NORVASC: HIVES,SWELLING IN ANKLES, FEET AND EYELIDS: ALLERGY PRUDOXIN: ARMS TURNED RED AND SWELLED UP,FATIGUE: ALLERGY ROZEREM: MUSCLE AND JOINT PAIN: SIDE EFFECTS SONATA: SEVERE ITCHING: ALLERGY TOPAMAX: MUSCLE AND JOINT PAIN,EXHAUSTION: SIDE EFFECTS TRAMADOL-ACETAMINOPHEN: HEADACHES, MOUTH SORES: SIDE EFFECTS TRAZODONE HCL: SEVERE MUSCLE PAIN: SIDE EFFECTS AMOXICILLIN: SEVERE ITCHING, HIVES: ALLERGY OXYCODONE: HIVES,GENERIC FORM: ALLERGY METHADONE: INCREASED PAIN: SIDE EFFECTS INDERAL: CONFUSION: SIDE EFFECTS METHYLPHENIDATE: HIVES,RASH,FACIAL SWELLING: ALLERGY LYRICA: STOPPED WORKING, SWELLING OF HANDS AND FEET, WEIGHT GAIN: SIDE EFFECTS AMBIEN: DIZZINESS: SIDE EFFECTS AVAPRO: ITCHING AND FACIAL SWELLING: ALLERGY BIAXIN: NAUSEA/VOMITING: SIDE EFFECTS BYSTOLIC: PAIN AND ELECTRIC CURRENT SENSATION IN LEGS AND FEET: SIDE EFFECTS CARDIZEM: ITCHING,RASH: ALLERGY CLONIDINE HCL: MUSCLE AND JOINT PAIN: SIDE EFFECTS COLCHICINE: AFTER A FEW DAYS CAUSED INTENSE PAIN: ALLERGY COREG: MUSCLE PAIN: SIDE EFFECTS DYNACIRC CR: MIGRAINES: SIDE EFFECTS EFFEXOR: SOB,EXHAUSTION/GENERIC FORM: SIDE EFFECTS ESTRATEST H.S.: ITCHING, RASH: ALLERGY HYDRALAZINE HCL: RASH, SWELLING LEFT SIDE OF NECK,SEVERE CONSTIPATION, PAIN, WEAK: ALLERGY HYDROCHLOROTHIAZIDE: RASH, ITCHING: ALLERGY KETOPROFEN: HIVES,ITCHING, FACIAL SWELLING: ALLERGY LEVOXYL: CONSTIPATION/UPSET STOMACH: SIDE EFFECTS SULFA (FOR ALLERGY USE ONLY): ITCHING,RASH: ALLERGY NASONEX: MIGRAINES, NASAL PASSAGES VERY SORE: SIDE EFFECTS ADVIL: ITCHING, FACIAL SWELLING: ALLERGY CARDURA: ITCHING, RASH, FACIAL SWELLING, FREQUENT URINATION: ALLERGY IBUPROFEN: ITCHING, FACIAL SWELLING: ALLERGY AZELASTINE HCL: FELT VERY ILL: SIDE EFFECTS ASMANEX 120 METERED DOSES: EXHAUSTED AND WEAK, DID NOT HELP BREATHING: SIDE EFFECTS BACLOFEN: INTENSEPAIN AFTER A COUPLE WEEKS: SIDE EFFECTS LISINOPRIL: ANAPHYLAXIS: ALLERGY SURGICAL HISTORY SHARIF/BSO 1997 TONSILLECTOMY CARPAL TUNNEL R LAPAROTOMY SEVERAL D & C'S COLONOSCOPY/ENDOSCOPY 01/2012 CARDIAC CATHETERIZATION REVIEW OF SYSTEMS REVIEWED BY: PROVIDER: VALE JOHNSON . CONSTITUTIONAL: ANY CHANGE IN YOUR MEDICAL CONDITION? YES, PT STATES SHE IS GOING TO HAVE A RIGHT KNEE REPLACEMENT; APPT WITH SURGEON IN . CHILLS NO . FEVER NO . INFECTION: DO YOU HAVE NEW INFECTIONS? NO . DO YOU HAVE HISTORY OF MRSA? NO . MUSCULOSKELETAL: ANY NEW PATTERNS OF PAIN OR NUMBNESS? YES, WORSENING RIGHT LEG PAIN . GASTROENTEROLOGY: ANY NEW CHANGE IN BOWEL CONTROL? NO . GENITOURINARY: ANY NEW CHANGE IN BLADDER CONTROL? NO . IS THERE A CHANCE YOU COULD BE ? NO . HEMATOLOGY/LYMPH: DO YOU TAKE ANY BLOOD THINNERS? (FOR EXAMPLE- COUMADIN, PLAVIX, AGGRENOX, PLATEL, PRADAXA, OR XARELTO) NO . WHEN WAS YOUR LAST DOSE? DATE: TIME: . NEUROLOGY: HAVE YOU FALLEN IN THE PAST 6 MONTHS? NO . ANY NEW EXTREMITY NUMBNESS OR WEAKNESS? NO . CARDIOLOGY: DO YOU HAVE A PACEMAKER OR DEFIBRILLATOR? NO . RESPIRATORY: HAVE YOU BEEN SICK IN THE PAST WEEK? NO . FEVER NO . FLU LIKE SYMPTOMS? NO . COUGH NO . INTEGUMENTARY: DO YOU HAVE ANY RASHES OR OPEN SORES? NO . ALLERGIC/IMMUNO: ARE YOU ALLERGIC TO SHELLFISH OR IV DYE? NO . ANY NEW ALLERGIES? NO . PSYCHIATRIC: DO YOU HAVE THOUGHTS OF HURTING YOURSELF OR SOMEONE ELSE? NO . ARE YOU ABUSED, NEGLECTED, OR IN AN UNSAFE ENVIRONMENT? NO . ENDOCRINOLOGY: ARE YOU DIABETIC? NO . OTHER: DO YOU NEED ANY PRESCRIPTIONS? YES, HYDROCODONE . IF YES, PLEASE LIST: ____ . ANY NEW PROBLEMS WITH YOUR MEDICATIONS? NO . WHEN DID YOU LAST EAT? ____ . WHEN DID YOU LAST DRINK? ____ . WHAT DID YOU LAST DRINK? ____ . NAME OF PERSON DRIVING YOU HOME? ____ . DO YOU HAVE ANY OTHER QUESTIONS OR CONCERNS NO . VITAL SIGNS WT 179 LBS, HT 63", BMI 31.70 INDEX, BP 181/85 MM HG, HR 83 /MIN, RR 16 /MIN, TEMP 96.6 F, OXYGEN SAT % 99, REVIEWED BY: EMS KAY AWARE OF B/P. EXAMINATION GENERAL EXAMINATION: LUNGS:CLEAR TO AUSCULTATION BILATERALLY. HEART:HEART RATE REGULAR. MUSCULOSKELETAL:GENERALIZED TENDERNESS ABOVE/BELOW WAIST, BOTH SIDES OF BODY, CONSISTANT WITH FIBROMYALGIA. POINT TENDERNESS OVER MID THORACIC SPINOUS PROCESSES. SOME EDEMA AND EXQUISITE TENDERNESS WITH PALPATION AT MEDIAL KNEES. RIGHT > LEFT. TENDER WITH PALPATION OVER RIGHT KNEE.. ASSESSMENTS FIBROMYALGIA - M79.7 (PRIMARY) CHRONIC PRESCRIPTION OPIATE USE - Z79.891 RHEUMATOID ARTERITIS - I00 TREATMENT FIBROMYALGIA REFILL NORCO TABLET, 7.5-325 MG, 1 1/2 TABLET, ORALLY, EVERY 4-6 HOURS PRN PAIN MDD=5, 30 DAY(S), 150, REFILLS 0 REFILL METHADONE HCL TABLET, 10 MG, 1 TABLET, ORALLY, EVERY 6 HRS. MDD= 4 CHRONIC PAIN, 30 DAY(S), 120, REFILLS 0 NOTES: UPDATE NARCOTIC AGREEMENT. TRY TO USE LITTLE HYDROCODONE POSSIBLE BEFORE SURGERY SO YOU HAVE SOME ROOM TO GET PAIN RELIEF AFTERWARD. TALK TO WOMAN TO WOMAN OR PRIMARY DOC ABOUT BONE DENSITY AND STRENGTHING. FOLLOWUP WITH PCP REGARDING BLOOD PPRESSURE. CLINICAL NOTES: ISTOP REGISTRY REVIEWED AND DEMNOSTRATES COMPLLIANCE. BRINGS IN MEDICATIONS WHICH IS APPROPRIATE FOR WHAT WAS DISPENSED. RECENT URINE TOXICOLOGY REVIEWED. NO UNAUTHORIZED MEDICATIONS. NO ILLICIT SUBSTANCES AND PRESCRIBED MEDICATIONS WERE PRESENT. PROCEDURE CODES FA211 ESTABILISHED PATIENT [facility] FAC[facility] CHARGE G8730 PAIN ASSESS POS TOOL F/U PLAN DOC G8427 DOC MEDS VERIFIED W/PT OR RE DISPOSITION & COMMUNICATION FOLLOW UP 2 MONTHS (REASON: GENERALIZED PAIN) ELECTRONICALLY SIGNED BY VERA PEARSON ON 06/29/2017 AT 08:31 AM EDT DISCLAIMER : THIS IS A VISIT SUMMARY EXTRACTED FROM THE [employer] [facility] CHART. IT IS NOT A COPY OF THE [employer] [facility] PROGRESS NOTE. MTDD
== END ==
LOC: M PAIN 11:15
PROVIDERS: ATTEND Nurse Practitioner Family
DX: M79.7 Fibromyalgia (principal); I00 Rheumatic fever without heart involvement; Z79.891 Long term (current) use of opiate analgesic; Z79.899 Other long term (current) drug therapy; Z88.5 Allergy status to narcotic agent; Z88.2 Allergy status to sulfonamides; Z88.8 Allergy status to other drugs, medicaments and biological substances

== ENCOUNTER → 2017-07-27 | Outpatient (REF) | payer MEDICARE ==
[2017-07-27 12:55] LABS: EOS # 0.2 10^3/uL (0.0-0.50); EOS % 4.1 % (0.0-3.0); IMMATURE GRANULOCYTE % 0.5 % (0-0); LYMPH # 0.9 10^3/uL (1.5-4.5); LYMPH % 14.6 % (24.0-44.0); MEAN CORPUSCULAR HEMOGLOBIN 31.9 pg (27.0-33.0); MEAN CORPUSCULAR HGB CONC 32.9 g/dl (32.0-36.5); MONO # 0.6 10^3/uL (0.0-0.8); NEUTROPHILS # 4.1 10^3/uL (1.8-7.7); NEUTROPHILS % 70.8 % (36.0-66.0); PLATELET COUNT, AUTOMATED 223 10^3/uL (150-450); WHITE BLOOD COUNT 5.8 10^3/uL (4.0-10.0)
[2017-07-27 13:03] LABS: ALBUMIN 4.1 GM/DL (3.2-5.2); CREATININE FOR GFR 1.01 MG/DL (0.55-1.02); GLOMERULAR FILTRATION RATE 58.6 (>45)
== END ==
LOC: M LABDRAW1 10:18
PROVIDERS: ATTEND Internal Medicine Rheumatology
DX: M05.79 Rheumatoid arthritis with rheumatoid factor of multiple sites without organ or systems involvement (principal); Z79.899 Other long term (current) drug therapy; N18.2 Chronic kidney disease, stage 2 (mild)

== ENCOUNTER → 2017-08-14 | Outpatient (CLI) | payer MEDICARE ==
[~2017-08-14] MED LIST changes: +COUM2.5T17 PO; +MORP30TASA PO; +PERC5TAB12 PO
--- NOTE | 2017-09-10 01:05 | ECWPNPC ---
PATIENT NAME: AMIE BRYANT : 1950 GENDER: FEMALE VISIT DATE: 08/14/2017 DISCHARGE DATE: 08/14/17 09 VISIT LOCKED DATE TIME: PHYSICIAN: VALE VILLANUEVA RESOURCE: VALE VILLANUEVA REASON FOR APPOINTMENT 1. GENERALIZED PAIN HISTORY OF PRESENT ILLNESS HISTORY OF PRESENT ILLNESS: PAIN THE PATIENT DESCRIBES THE PAIN... FALL RISK SCREENING: SCREENING :NO FALLS IN THE PAST YEAR TODAY'S VISIT: NOTES: RATES PAIN TODAY 10. STATES SHE FEELS TERRIBLE. IS BEING SCHEDULED FOR RIGHT KNEE REPLACEMENT 09/11/17. HAS BEEN USING IBUPROFEN FOR THE INFLAMMATION AND THIS HAS BEEN HELPFUL. . CURRENT MEDICATIONS TAKING NORVASC 10 MG TABLET 1 TABLET ORALLY ONCE A DAY TAKING LUBRICANTS EYE GTTS/OTC LIQUID 1-2 DROPS OU NEEDED TAKING LEVOTHYROXINE SODIUM 100 MCG TABLET 1 TABLET EVERY MORNING ON AN EMPTY STOMACH ORALLY ONCE A DAY TAKING LIDODERM 5 % PATCH 1 PATCH TO INTACT SKIN REMOVE AFTER 12 HOURS EXTERNALLY ONCE A DAY NEEDED FOR SEVERE TENDER POINT PAIN TAKING MAXALT 10 MG TABLET 1 TABLET ORALLY NEEDED TAKING PREVACID 30 MG CAPSULE DELAYED RELEASE 1 CAPSULE BEFORE A MEAL ORALLY ONCE A DAY TAKING VITAMIN B COMPLEX OTC TABLET 1 TABLET ORALLY ONCE A DAY TAKING VITAMIN C 500 MG TABLET 1 TABLET ORALLY TWICE A DAY TAKING CALCIUM + D 630MG/500IU TABLET 1 TABLET ORALLY TWICE A DAY TAKING VITAMIN D 2000 UNIT TABLET 1 CAPSULE ORALLY ONCE A DAY TAKING MULTIVITAMINS OTC TABLET 1 TABLET ORALLY ONCE A DAY TAKING CLOBETASOL PROPIONATE 0.05 % OINTMENT 1 APPLICATION TO AFFECTED AREA EXTERNALLY NEEDED TAKING FOLIC ACID 1 MG TABLET 1 TABLET ORALLY ONCE A DAY TAKING METHOTREXATE 2.5 MG TABLET 3 TABLETS ORALLY ONCE A WEEK TAKING SERTRALINE HCL 100 MG TABLET 1 TABLET ORALLY ONCE A DAY TAKING HYDROXYZINE HCL 10 MG TABLET 1 TABLET ORALLY NEEDED FOR ITCHING TAKING PROMETHAZINE HCL 25 MG TABLET 1 TAB(S) ORALLY EVERY 8 HOURS NEEDED TAKING MOTRIN IB 200 MG TABLET 3 TABLET WITH FOOD OR MILK NEEDED ORALLY EVERY 6 HRS PRN TAKING CYCLOBENZAPRINE HCL 10 MG TABLET 1 TABLET ORALLY TWICE A DAY NEEDED TAKING NORCO 7.5-325 MG TABLET 1 1/2 TABLET ORALLY EVERY 4-6 HOURS PRN PAIN MDD=5 TAKING METHADONE HCL 10 MG TABLET 1 TABLET ORALLY EVERY 6 HRS. 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[place], ?LUPUS CARPAL TUNNEL SYNDROME INFLAMMATORY ARTHRITIS RHEUMATOID ARTHRITIS TENDONITIS LEFT ELBOW ALLERGIES ALTACE: FATIGUE: SIDE EFFECTS METOPROLOL SUCCINATE: MUSCLE PAIN ,SOB: SIDE EFFECTS MORPHINE SULFATE: PAIN,CONSTIPATION,DRY MOUTH,SOB: SIDE EFFECTS NEURONTIN: DOES NOT HELP PAIN, WEIGHT GAIN: SIDE EFFECTS NORTRIPTYLINE HCL: NAUSEA/VOMITING: SIDE EFFECTS NORVASC: HIVES,SWELLING IN ANKLES, FEET AND EYELIDS: ALLERGY PRUDOXIN: ARMS TURNED RED AND SWELLED UP,FATIGUE: ALLERGY ROZEREM: MUSCLE AND JOINT PAIN: SIDE EFFECTS SONATA: SEVERE ITCHING: ALLERGY TOPAMAX: MUSCLE AND JOINT PAIN,EXHAUSTION: SIDE EFFECTS TRAMADOL-ACETAMINOPHEN: HEADACHES, MOUTH SORES: SIDE EFFECTS TRAZODONE HCL: SEVERE MUSCLE PAIN: SIDE EFFECTS AMOXICILLIN: SEVERE ITCHING, HIVES: ALLERGY OXYCODONE: HIVES,GENERIC FORM: ALLERGY METHADONE: INCREASED PAIN: SIDE EFFECTS INDERAL: CONFUSION: SIDE EFFECTS METHYLPHENIDATE: HIVES,RASH,FACIAL SWELLING: ALLERGY LYRICA: STOPPED WORKING, SWELLING OF HANDS AND FEET, WEIGHT GAIN: SIDE EFFECTS AMBIEN: DIZZINESS: SIDE EFFECTS AVAPRO: ITCHING AND FACIAL SWELLING: ALLERGY BIAXIN: NAUSEA/VOMITING: SIDE EFFECTS BYSTOLIC: PAIN AND ELECTRIC CURRENT SENSATION IN LEGS AND FEET: SIDE EFFECTS CARDIZEM: ITCHING,RASH: ALLERGY CLONIDINE HCL: MUSCLE AND JOINT PAIN: SIDE EFFECTS COLCHICINE: AFTER A FEW DAYS CAUSED INTENSE PAIN: ALLERGY COREG: MUSCLE PAIN: SIDE EFFECTS DYNACIRC CR: MIGRAINES: SIDE EFFECTS EFFEXOR: SOB,EXHAUSTION/GENERIC FORM: SIDE EFFECTS ESTRATEST H.S.: ITCHING, RASH: ALLERGY HYDRALAZINE HCL: RASH, SWELLING LEFT SIDE OF NECK,SEVERE CONSTIPATION, PAIN, WEAK: ALLERGY HYDROCHLOROTHIAZIDE: RASH, ITCHING: ALLERGY KETOPROFEN: HIVES,ITCHING, FACIAL SWELLING: ALLERGY LEVOXYL: CONSTIPATION/UPSET STOMACH: SIDE EFFECTS SULFA (FOR ALLERGY USE ONLY): ITCHING,RASH: ALLERGY NASONEX: MIGRAINES, NASAL PASSAGES VERY SORE: SIDE EFFECTS ADVIL: ITCHING, FACIAL SWELLING: ALLERGY CARDURA: ITCHING, RASH, FACIAL SWELLING, FREQUENT URINATION: ALLERGY IBUPROFEN: ITCHING, FACIAL SWELLING: ALLERGY AZELASTINE HCL: FELT VERY ILL: SIDE EFFECTS ASMANEX 120 METERED DOSES: EXHAUSTED AND WEAK, DID NOT HELP BREATHING: SIDE EFFECTS BACLOFEN: INTENSEPAIN AFTER A COUPLE WEEKS: SIDE EFFECTS LISINOPRIL: ANAPHYLAXIS: ALLERGY SOCIAL HISTORY GENERAL: TOBACCO USE ARE YOU A:NEVER SMOKER ALCOHOL SCREENING POINTS0 INTERPRETATIONNEGATIVE RECREATIONAL DRUG USE DRUG USE?NO PENTECOSTALISM [id number] MOSQUE LANGUAGE LANGUAGES SPOKEN:BOTSWANAN LEARNING BARRIERS / SPECIAL NEEDS BARRIERS TO LEARNING?NO HEARING IMPAIRED?NO VISION IMPAIRED?YES GLASSES FOR READING COGNITIVELY IMPAIRED?NO READINESS TO LEARN?YES LEARNING PREFERENCES?NO LEARNING CAPABILITIES PRESENT?YES EMOTIONAL BARRIERS?NO 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 0. PAIN CLINIC PFS, CLERGY, PUBLIC HEALTH REFERRALS PFS REFERRAL NEEDED?NO CLERGY REFERRAL NEEDED?NO PUBLIC HEALTH REFERRAL NEEDED?NO HAS THE PATIENT BEEN EDUCATED REGARDING HIS/HER PLAN OF CARE?YES HAS THE PATIENT BEEN EDUCATED REGARDING PAIN, THE RISK FOR PAIN, THE IMPORTANCE OF EFFECTIVE PAIN MANAGEMENT, AND THE PAIN ASSESSMENT PROCESS?YES REVIEW OF SYSTEMS REVIEWED BY: PROVIDER: VALE JOHNSON . CONSTITUTIONAL: ANY CHANGE IN YOUR MEDICAL CONDITION? NO . CHILLS NO . FEVER NO . INFECTION: DO YOU HAVE NEW INFECTIONS? NO . DO YOU HAVE HISTORY OF MRSA? NO . MUSCULOSKELETAL: ANY NEW PATTERNS OF PAIN OR NUMBNESS? NO . GASTROENTEROLOGY: ANY NEW CHANGE IN BOWEL CONTROL? NO . GENITOURINARY: ANY NEW CHANGE IN BLADDER CONTROL? NO . IS THERE A CHANCE YOU COULD BE ? NO . HEMATOLOGY/LYMPH: DO YOU TAKE ANY BLOOD THINNERS? (FOR EXAMPLE- COUMADIN, PLAVIX, AGGRENOX, PLATEL, PRADAXA, OR XARELTO) NO . WHEN WAS YOUR LAST DOSE? DATE: TIME: . NEUROLOGY: HAVE YOU FALLEN IN THE PAST 6 MONTHS? NO . ANY NEW EXTREMITY NUMBNESS OR WEAKNESS? NO . CARDIOLOGY: DO YOU HAVE A PACEMAKER OR DEFIBRILLATOR? NO . RESPIRATORY: HAVE YOU BEEN SICK IN THE PAST WEEK? NO . FEVER NO . FLU LIKE SYMPTOMS? NO . COUGH NO . INTEGUMENTARY: DO YOU HAVE ANY RASHES OR OPEN SORES? NO . ALLERGIC/IMMUNO: ARE YOU ALLERGIC TO SHELLFISH OR IV DYE? NO . ANY NEW ALLERGIES? NO . PSYCHIATRIC: DO YOU HAVE THOUGHTS OF HURTING YOURSELF OR SOMEONE ELSE? NO . ARE YOU ABUSED, NEGLECTED, OR IN AN UNSAFE ENVIRONMENT? NO . ENDOCRINOLOGY: ARE YOU DIABETIC? NO . OTHER: DO YOU NEED ANY PRESCRIPTIONS? NO . IF YES, PLEASE LIST: ____ . ANY NEW PROBLEMS WITH YOUR MEDICATIONS? NO . WHEN DID YOU LAST EAT? ____ . WHEN DID YOU LAST DRINK? ____ . WHAT DID YOU LAST DRINK? ____ . NAME OF PERSON DRIVING YOU HOME? ____ . DO YOU HAVE ANY OTHER QUESTIONS OR CONCERNS NO . VITAL SIGNS WT 175 LBS, HT 63", BMI 31.00 INDEX, BP 182/80 MM HG, HR 104 /MIN, RR 18 /MIN, TEMP 97.5 F, OXYGEN SAT % 98%, NA INITIALS TL 0902, REVIEWED BY: COMFORT BP. AUBREE Glover AWARE- TLNEW BP MEDICATION PRESCRIBED AND PATIENT HAS BEEN TAKING FOR ABOUT 1 WEEK. EXAMINATION GENERAL EXAMINATION: LUNGS:CLEAR TO AUSCULTATION BILATERALLY. HEART:HEART RATE REGULAR. MUSCULOSKELETAL:GENERALIZED TENDERNESS ABOVE/BELOW WAIST, BOTH SIDES OF BODY, CONSISTANT WITH FIBROMYALGIA. POINT TENDERNESS OVER MID THORACIC SPINOUS PROCESSES. SOME EDEMA AND EXQUISITE TENDERNESS WITH PALPATION AT MEDIAL KNEES. RIGHT > LEFT. TENDER WITH PALPATION OVER RIGHT KNEE.. ASSESSMENTS FIBROMYALGIA - M79.7 (PRIMARY) CHRONIC PRESCRIPTION OPIATE USE - Z79.891 RHEUMATOID ARTERITIS - I00 TREATMENT FIBROMYALGIA NOTES: CALL WHEN SCRIPTS NEEDED. CONSIDER HAVING SURGEON SWITH TO PERCOCET FOR POST OP PAIN INSTEAD OF HYDROCODONENEED COPY OF EKG TO BE DONE FOR SURGERYDO EXERCISES AND OUTINEDBY SURGEON. CLINICAL NOTES: ISTOP REGISTRY REVIEWED AND DEMNOSTRATES COMPLLIANCE. (REF #[id number]) BRINGS IN MEDICATIONS WHICH IS APPROPRIATE FOR WHAT WAS DISPENSED. RECENT URINE TOXICOLOGY REVIEWED. NO UNAUTHORIZED MEDICATIONS. NO ILLICIT SUBSTANCES AND PRESCRIBED MEDICATIONS WERE PRESENT. , RISKS AND BENEFITS OF NARCOTIC/OPIOD MEDICATIONS WERE REVIEWED WITH PATIENT - THIS INCLUDES BUT IS NOT LIMITED TO RISK OF DEPENDANCE/DEVELOPMENT OF ADDICTION, MOOD DISTURBANCE AND DEPRESSION, OSTEOPOROSIS, HORMONAL AND LABIDAL CHANGES, RESPIRATORY DEPRESSION AND . PATIENT IS ADVISED NOT TO DRIVE WHILE ON THESE MEDICATIONS. PROCEDURE CODES FA211 ESTABILISHED PATIENT [facility] FACILITY CHARGE G8730 PAIN ASSESS POS TOOL F/U PLAN DOC G8427 DOC MEDS VERIFIED W/PT OR RE DISPOSITION & COMMUNICATION FOLLOW UP END OF OCT (REASON: GENERALIZED PAIN) ELECTRONICALLY SIGNED BY VERA PEARSON ON 09/09/2017 AT 09:36 PM EST DISCLAIMER : THIS IS A VISIT SUMMARY EXTRACTED FROM THE [employer] CHART. IT IS NOT A COPY OF THE [employer] PROGRESS NOTE. BYRON
== END ==
LOC: M PAIN 09:00
PROVIDERS: ATTEND Nurse Practitioner Family
DX: M79.7 Fibromyalgia (principal); Z79.891 Long term (current) use of opiate analgesic; I00 Rheumatic fever without heart involvement; I10 Essential (primary) hypertension; Z79.899 Other long term (current) drug therapy; Z88.1 Allergy status to other antibiotic agents; Z88.2 Allergy status to sulfonamides; Z88.8 Allergy status to other drugs, medicaments and biological substances

== ENCOUNTER → 2017-08-31 | Outpatient (CLI) | payer MEDICARE ==
[2017-08-31 13:25] LABS: EOS # 0.1 10^3/uL (0.0-0.50); EOS % 2.5 % (0.0-3.0); IMMATURE GRANULOCYTE % 0.4 % (0-0); LYMPH # 0.7 10^3/uL (1.5-4.5); MEAN CORPUSCULAR HEMOGLOBIN 32.2 pg (27.0-33.0); MEAN CORPUSCULAR HGB CONC 32.7 g/dl (32.0-36.5); MEAN CORPUSCULAR VOLUME 98.6 fl (80.0-96.0); MONO # 0.4 10^3/uL (0.0-0.8); MONO % 7.9 % (0.0-5.0); NEUTROPHILS % 75.2 % (36.0-66.0); PLATELET COUNT, AUTOMATED 194 10^3/uL (150-450); RED CELL DISTRIBUTION WIDTH 12.9 % (11.5-14.5); WHITE BLOOD COUNT 5.3 10^3/uL (4.0-10.0)
[2017-08-31 13:36] LABS: ALBUMIN 3.9 GM/DL (3.2-5.2); ALT/SGPT 28 U/L (12-78); BLOOD UREA NITROGEN 13 MG/DL (7-18); CREATININE FOR GFR 0.84 MG/DL (0.55-1.02); GLOMERULAR FILTRATION RATE > 60.0 (>45)
== END ==
LOC: M LABDRAW1 11:09
PROVIDERS: ATTEND Internal Medicine Rheumatology
DX: E55.9 Vitamin D deficiency, unspecified (principal)

== ENCOUNTER 2017-09-03 08:47 | Inpatient (IN) | payer MEDICARE ==
[2017-08-20 11:31] VITALS: BP 194/78
--- NOTE | 2017-08-30 15:48 | HPE ---
DATE OF ADMISSION: 09/03/2017 CHIEF COMPLAINT: Right knee pain. HISTORY OF PRESENT ILLNESS: Monica is a pleasant, 67-year-old female with progressively worsening right knee pain and stiffness. She has failed to improve with conservative treatment. She has elected for surgery for her continued symptoms. She has pain with weightbearing activities and her activities of daily living. X-rays of her knee are notable for advanced osteoarthritis of the right knee joint. She has consented for a right total knee arthroplasty by Dr. Vineet David. Medical optimization was performed by Dr. Navid Mejia's office. ALLERGIES: IBUPROFEN, NORVASC, AMOXICILLIN, AVAPRO, DILTIAZEM, CARDURA, ESTRATEST, HYDRALAZINE, HYDROCHLOROTHIAZIDE, KETOPROFEN, LEVOTHYROXINE, METHYLPHENIDATE, SONATA, SULFA DRUGS, LISINOPRIL, and PRADAXA. CURRENT MEDICATIONS: - 0.05% applied to affected area twice a day as needed - cyclobenzaprine 10 mg one by mouth every day - eye drop relieve 0.05-0.25% - folic acid 1 mg a day - hydroxyzine 10 mg one every 6 hours - hydrocodone/acetaminophen 7.5/325 one every 6 hours as needed - Synthroid 100 mcg - lidocaine 5% patch - methotrexate 2.5 mg once a week - methadone 10 mg a day - lansoprazole 30 mg twice a day - promethazine 25 mg - vitamin B complex once a day - vitamin C 500 mg twice a day - calcium citrate plus D 1000 units one by mouth every day - multivitamin every day - amlodipine 10 mg one by mouth every day - rizatriptan benzoate one for headache, may repeat in 2 hours if necessary - metronidazole 0.75% - sertraline 100 mg a day PAST MEDICAL HISTORY: Includes fibromyalgia, chronic fatigue syndrome, rheumatoid arthritis, osteoarthritis and Nikolai's thyroiditis. Also has hypertension. PAST SURGICAL HISTORY: Includes tonsillectomy and hysterectomy. SOCIAL HISTORY: This patient is disabled. Does not smoke. Does not drink alcohol. FAMILY HISTORY: Is noncontributory. REVIEW OF SYSTEMS: This patient denies chest pain, heart palpitations, cough, wheezing, difficulty breathing and shortness of breath. She denies abdominal pain, nausea, vomiting, diarrhea or constipation. She denies recent upper respiratory infection or urinary tract infection symptoms. She does complain of persistent pain in the right knee and pain with weightbearing activities in her right knee. PHYSICAL EXAMINATION: General: She is well-nourished, well-developed, in no acute distress, alert female patient who walks with a moderate limp favoring her right lower extremity and is not using assistive devices. Vital signs: She is 63 inches tall, weighs 171 pounds with a temperature of 98.7, blood pressure 154/76, pulse of 84 and respirations of 16. Neck was supple without adenopathy or jugular venous distension. There were no carotid bruits appreciated upon auscultation. Lungs were clear to auscultation without rales or wheeze throughout. Heart: Regular rate and rhythm. Abdomen: Bowel sounds were present. Extremities: Examination of the knee revealed intact skin. She had pain and stiffness and decreased range of motion on exam today. The limb is neurovascularly intact. LABORATORY DATA: Chest x-ray shows no acute cardiopulmonary disease processes. EKG shows normal sinus rhythm at 80 beats per minute. Nasal and sinus culture showed Staphylococcus aureus. UA was within normal limits with a specific gravity of 1.005. Prothrombin time 12.2, INR 0.90. CBC showed a red count of 3.64, hemoglobin 11.7, hematocrit 35.6, MCV of 97.8, otherwise within normal limits. Sedimentation rate was 21, glucose 107, BUN 14, creatinine 0.76, sodium 140, potassium 4.4. Urine culture showed no growth. IMPRESSION: Nasal Staphylococcus aureus carrier and symptomatic osteoarthritis of the right knee joint. PLAN: Consented for a right total knee arthroplasty by Dr. Vineet David. Additionally, the patient was placed on Hibiclens scrubs and Bactroban ointment to the nares for 5 days preoperatively.
[~2017-09-03] VITALS: Ht 162.6 cm; Wt 79.4 kg
[~2017-09-03 08:47] MED LIST changes: -COUM2.5T17 PO; -MORP30TASA PO; -PERC5TAB12 PO
[2017-09-03] MEDS ORDERED: ONDANSETRON 4MG/2ML VIAL (J2405) As Ordered ONE (08:49)
[2017-09-03] MEDS ORDERED: dexameTHASONE 4 MG/ML 1ML VIAL (J1100) As Ordered ONE (08:49)
[2017-09-03] MEDS ORDERED: LIDOCAINE 2% INJ 100 MG/5 ML SDV (FOR ANES.) As Ordered ONE (08:49)
[2017-09-03] MEDS ORDERED: PROPOFOL 200 MG/20 ML VIAL As Ordered ONE (08:49)
[2017-09-03] MEDS ORDERED: MIDAZOLAM INJ 2 MG/2 ML VIAL (J2250) As Ordered ONE ×3 (08:49→12:15)
[2017-09-03] MEDS ORDERED: fentaNYL 100 MCG/2 ML INJECTION (J3010) As Ordered ONE ×2 (08:50→09:45)
[2017-09-03] MEDS ORDERED: ACETAMINOPHEN 500 MG TAB PO ONE (09:00)
[2017-09-03] MEDS ORDERED: LR 1,000 ML IV ONE (09:00)
[2017-09-03] MEDS ORDERED: TRANEXAMIC ACID 100 MG/ML 10ML VIAL As Ordered ONE (09:17)
[2017-09-03] MEDS ORDERED: CLINDAMYCIN INJ 900MG/6ML VIAL As Ordered ONE (09:17)
[2017-09-03] MEDS ORDERED: EPINEPHrine INJ 1 MG/ML 1ML AMP As Ordered ONE (09:17)
[2017-09-03] MEDS ORDERED: BUPIVACAINE LIPOSOME/PF 1.3% 20 ML VIAL (13.3MG/ML)(EXPAREL) As Ordered ONE (09:18)
[2017-09-03] MEDS: MIDAZOLAM INJ 2 MG/2 ML VIAL (J2250) IV PRN ×2 (11:13→11:14)
[2017-09-03] MEDS ORDERED: BUPIVACAINE HCL 0.25% 30 ML VIAL As Ordered ONE (12:00)
[2017-09-03] MEDS ORDERED: fentaNYL 100 MCG/2 ML INJECTION (J3010) IV PRN ×2 (12:15→14:15)
[2017-09-03] MEDS ORDERED: ROPIvacaine 0.5% 30 ML INJECTION (J2795) ONE (13:58)
[2017-09-03] MEDS ORDERED: MEPERIDINE INJ 25 MG/ML VIAL (J2175) IV PRN (14:15)
[2017-09-03] MEDS ORDERED: PERCOCET 5MG/325MG TAB PO PRN (14:15)
[2017-09-03] MEDS ORDERED: LR 1,000 ML IV SCH ×2 (14:15)
[2017-09-03] MEDS ORDERED: ONDANSETRON 4MG/2ML VIAL (J2405) IV PRN (14:15)
[2017-09-03] MEDS ORDERED: FLEET ENEMA PR PRN (14:30)
[2017-09-03 14:45] VITALS: BP 157/88
[2017-09-03 15:15] VITALS: BP 154/86
[2017-09-03] MEDS: ACETAMINOPHEN TAB 650MG DOSE (2X325MG) PO PRN (15:23)
--- NOTE | 2017-09-03 15:38 | RO ---
DATE OF PROCEDURE: 09/03/2017 PREPROCEDURE DIAGNOSIS: Right knee degenerative arthritis. POSTPROCEDURE DIAGNOSIS: Right knee degenerative arthritis. PROCEDURE: Right total knee arthroplasty using a size 2.5 cruciate retaining femoral component with a size 3 tibia tray with a 10 mm rotating platform polyethylene and a 35 mm polyethylene button. All components were cemented. The prosthesis was made by [employer]. It was a PFC knee. SURGEON: Dr. Luisito David. YARN SPINNER: Mr. Geoff Pak PA-C. ANESTHESIA: Spinal right femoral nerve block. COMPLICATIONS: None. SPECIMENS: Joint surface. ESTIMATED BLOOD LOSS: Less than 20 mL. DESCRIPTION OF PROCEDURE: Antibiotics were given intravenously preoperatively. Then a successful spinal anesthetic was induced. A tourniquet was placed in the right upper thigh, not inflated. A Babcock catheter was placed. Right lower extremity was carefully prepped and draped in the usual sterile fashion. The leg was then elevated and after appropriate time-out, the tourniquet was inflated for 58 minutes. A longitudinal incision was then made for medial parapatellar approach to the knee. Bovie cautery was used to coagulate the crossing vessels. The patellar arthrotomy was performed. Subperiosteal dissection around the proximal medial portion of the tibia and proximal lateral portion of the tibia was performed. We everted the patella and the flexed the knee. A drill was placed down the center of the femoral canal followed by the distal femoral cutting jig set at 5 degree valgus cut at 10 mm resection level for a right knee. The block was pinned into position. Distal femoral cut was performed. AP sizing jig measured for a 2.5 sized femoral component which was pinned into position followed by the 3 degree external rotation block. Then the 4-in-1 block, applied and then the anterior posterior chamfer cuts performed taking great care to protect the surrounding soft tissues. We then exposed the proximal tibia, used the extramedullary alignment jig to help estimated being parallel to the mechanical axis of the tibia. We referenced off the medial tibial condyle and set the measuring jig at 4 mm from that position. The block was pinned in position and the extramedullary elliott used as a secondary tract to confirm that we appeared to be parallel to the mechanical access. A proximal tibial osteotomy was then performed. Laminar spreaders were then placed medially and we performed a completion lateral meniscectomy beginning with the posterolateral osteophytes then placed the laminar perfume maker laterally and performed a completion medial meniscectomy beginning with the posteromedial osteophytes. The spacer blocks showed that the 10 mm space was snug both in flexion and extension symmetrically. Thus, I exposed the proximal tibia and re-applied the proximal tibia cutting block at 2 mm lower down to take off 2 more millimeters. That was done. We irritated and cleaned the area and then the spacer block showed that a 10 mm spacer block in flexion and extension had nice stability with good symmetry between flexion and extension spaces. We then exposed the proximal tibial size for a size #3 tray which was pinned in position followed by a reamer and broach from the trial polyethylene and the trial femoral component was placed. We brought knee into extension, everted the patella, performed the patellar osteotomy and sized for a 35 button. Lug holes were drilled. The patellar prosthesis was placed and the patellofemoral tracking was anatomic. We then drilled the lung holes for the femur. Removed all the trial components and instill Exparel into the periosteum of the femur and the tibial as well as the posterior joint capsule as well as the medial and lateral capsules and then the arthrotomy incision. Then my oncology physician assistant, Mr. Pak mixed the cement on the back table. He was also critical to the success of the procedure by helping to manipulate the knee, helping to close the wound. Helping to apply appropriate soft tissue retraction so I could perform the operating smoothly and efficiently amongst many other tasks. Once I prepared the bony surfaces with a copious amount of pulsatile lavage irrigant solution and dried them thoroughly, we cemented the tibial tray, removed excess cement and placed the polyethylene and then cemented the femoral component and removed excess cement. Brought the knee into extension and cemented the patellar button, held it with a clamp after we removed excess cement until the cement hardened with the knee in extension. While we were awaiting that, we copiously pulsatile, lavaged and irrigated out the knee joint once again. Then instilled tranexamic acid and began closing the arthrotomy with two interrupted #1-0 PDS sutures at the apex of the wound, one medial parapatellar #1 PDS was placed and then a running #1 Stratafix double arm was used to close the capsule. Then the tourniquet was released and we copiously irrigated out the wound again, closed the deep subdermal tissues with interrupted #2-0 PDS suture. The skin was closed with oscar covered by Adaptic dry sterile bulky dressing. She was then transferred to the recovery room in stable condition. There were no intraoperative complications. BYRON
[2017-09-03] MEDS: HYDROmorphone HCL 1 MG/ML SYRINGE (J1170) IV PRN (15:58)
[2017-09-03 16:15] VITALS: BP 153/86
[2017-09-03] MEDS ORDERED: WARFARIN SOD 5 MG TAB PO ONE (17:00)
[2017-09-03 17:15] VITALS: BP 157/100
[2017-09-03 18:15] VITALS: BP 149/86
--- NOTE | 2017-09-03 18:24 | CR.PDOC ---
[facility] Consultation Consultation DATE OF CONSULTATION: 09/03/2017 PRIMARY CARE PHYSICIAN: Dr. Mejia REFERRING PROVIDER: Dr. David ATTENDING PHYSICIAN: Dr. David REASON FOR CONSULTATION/CHIEF COMPLAINT: Medical management HISTORY OF PRESENT ILLNESS: Ms. Ramirez is a 67 y/o female with past medical history significant for rheumatoid arthritis, depression, hypertension, Nikolai's disease, fibromyalgia, chronic fatigue syndrome, pseudogout who presents for right TKA on 09/03/2017. The patient states that she has some pain in her right knee from the procedure especially with movement, she has not bore weight yet on the leg. Other than this she has no active complaints. She is still on a clear liquid diet and tolerating this without nausea or vomiting or abdominal pain. She denies any chest pain, shortness of breath or feelings of her heart racing. She denies having a headache or experiencing any changes in her vision. She does tell me that she is very sensitive to most medications and she does have an extensive allergy list. She states that even the manufacture of his surgery and drug if it is not the correct manufacture can cause her to have an adverse reaction such as increased pain if it is the wrong manufacture with pain medication. She has requested to use her home sertraline, methadone and prevacid since these are very specific manufacturers who make these particular medications and she needs to have these home medications if we continue them. ALLERGIES: Please see below. HOME MEDICATIONS: Please see below. PAST MEDICAL HISTORY: Hypertension, Nikolai's disease, rheumatoid arthritis, fibromyalgia, chronic fatigue syndrome, GERD, pseudogout, depression PAST SURGICAL HISTORY: Right TKA SOCIAL HISTORY: Marital status and/or living arrangements: , lives at home with spouse ETOH: denied Illicit drug use: denied IV drug use: denied REVIEW OF SYSTEMS: CONSTITUTIONAL: Patient has no active complaints except that her right knee is still a bit tender with movement, she is sleeping well and has no nausea HEENT: No blurry vision, change in vision or headache CARDIOVASCULAR: No chest pain, palpitation or dizziness RESPIRATORY: No shortness of breath, wheezing, cough GENITOURINARY: No pain with urination no increase in urination or blood in urine MUSCULOSKELETAL: Right knee tender to touch and movement GASTROINTESTINAL: No diarrhea or constipation, no pain with bowel movement or blood in stool SKIN: Patient states she bruises easily although she is not on a blood thinner for any reason, or abrasions, lesions or ulcers appreciated NEUROLOGICAL: No loss of sensation or paralysis of any limb PSYCHIATRIC: Patient suffers from depression ALLERGIC/IMMUNOLOGIC: Patient has quite an extensive list of allergies and states that due to her fibro-myalgia, she states that she is even sensitive to different manufacturers of the same medication. PHYSICAL EXAMINATION: VITAL SIGNS: Please see below. GENERAL APPEARANCE: Laying in bed comfortably, in no distress, pleasant and conversant HEENT: EOMI, nares patent bilaterally, moist mucous membranes RESPIRATORY: CTA bilaterally, no wheezing, rales, rhonchi appreciated. Good air expansion and effort throughout. CARDIOVASCULAR: No murmurs, rubs, gallops appreciated, normal S1 and S2. ABDOMEN: Soft, nondistended, no rebound guarding, no rigidity, NABS 4, no organomegaly. Nontender. EXTREMITIES: No clubbing or cyanosis or edema appreciated. Right knee has bandage and is slightly sensitive to light touch. No gross deformity appreciated. No erythema. NEUROLOGICAL: No focal deficits appreciated PSYCHIATRIC: Affect is appropriate LABORATORY DATA: Please see below. ASSESSMENT/PLAN: This is a 67-year-old female admitted for reason of right TKA, hospitalist team consulted for medical management of chronic issues. 1. Hypertension Continue patient's home amlodipine of 10 mg daily with hold parameters for holding of systolic blood pressure less than 110, continue home Terazosin 1 mg QHS Blood pressure is stable at 154/73 2. Nikolai's disease We'll continue patient's home Levoxyl of 100 MCG daily 3. Rheumatoid arthritis Patient takes 7.5 mg of methotrexate on Saturdays, we'll hold this as it is unlikely she will still be in hospital at the time this medication needs to be given 4. Depression Continue sertraline 100 daily Patient may use own home medication as she has brought it with her and states that this is one of the medications that she can only have a specific manufacture to otherwise she may have an allergic/adverse reaction 5. GERD Patient to continue home Prevacid 30 by mouth daily Again this is the medication she states she needs to take from home as it is a specific urgent care nurse practitioner, we'll put in order for her to use her home medication 6. Pain control/ Right TKA - As per primary team, along with anticoagulation - will d/c pt's antibiotics, not necessary at this time, pt afebrile without a white count -can begin tylenol 650 mg q6hp -pt on dilaudid as per primary team Vital Signs/I&O Vital Signs Date Time Temp Pulse Resp B/P (MAP) Pulse Ox O2 Delivery O2 Flow Rate FiO2 09/03/17 16:49 22 98 Nasal Cannula 2.0 09/03/17 14:20 98 78 154/73 (100) I&O- Last 24 Hours up to 6 AM 09/04/17 06:00 Intake Total 1640 ml Output Total 1425 ml Balance 215 ml Allergies Coded Allergies: Angiotensin Receptor Blockers (Verified Allergy, Severe, HIVES, TONGUE SWELLING, 01/14/13) Doxazosin (Verified Allergy, Severe, ITCHING, RASH, FACIAL SWELLING, ) Irbesartan (Verified Allergy, Severe, HIVES, TONGUE SWELLING, 01/14/13) Amlodipine (Verified Allergy, Intermediate, ITCHING, HIVES, ANKLE SWELLING , 01/14/13) Estrogens (Verified Allergy, Intermediate, ITCHING, RASH, 01/14/13) Methyltestosterone (Verified Allergy, Intermediate, ITCHING, RASH, 01/14/13) Penicillins (Verified Allergy, Intermediate, HIVES, ITCHING, 01/14/13) Penicillins Cross Reactors (Verified Allergy, Intermediate, HIVES, ITCHING , 01/14/13) Zaleplon (Verified Allergy, Intermediate, ITCHING, 02/21/13) Diltiazem (Verified Allergy, Mild, ITCHING, RASH, 01/14/13) Hydralazine (Verified Allergy, Mild, RASH, PAIN, SWELLING, WEAKNESS, ) Hydrochlorothiazide (Verified Allergy, Mild, RASH, ITCHING, 01/14/13) Ketoprofen (Verified Allergy, Mild, ITCHING, SWELLING, 01/14/13) Sulfa Drugs (Verified Allergy, Mild, ITCHING, RASH, 01/14/13) Sulfa Drugs Cross Reactors (Verified Allergy, Mild, ITCHING, RASH, 01/14/13) Lisinopril (Verified Adverse Reaction, Mild, SWELLING, 05/24/15) Home Medications Scheduled (Vitamin C) Cap, 500 TAB PO BID, (Reported) Amlodipine Besylate (Amlodipine Besylate) 10 Mg Tab, 10 MG PO DAILY, (Reported) Calcium/Vitamin D (Calcium 500 + Vitamin D) Chw, 1 TAB PO BID, (Reported) Diphenhydramine Hcl (Benadryl) 25 Mg Cap, 25 MG PO PRN, (Reported) Folic Acid (Folic Acid) 1 Mg Tab, 1 MG OR DAILY, (Reported) Hydroxyzine Hcl (Hydroxyzine Hcl) Hcl Pow, 10 MG PO QIDP, (Reported) Lansoprazole (Prevacid) 30 Mg Cap, 30 MG PO DAILY, (Reported) Levothyroxine Sodium (Levoxyl) Tab, 100 MCG PO DAILY, (Reported) Methadone HCl (Methadone HCl) 10 Mg Tab, 10 MG PO Q6H, (Reported) Methotrexate (Methotrexate) 2.5 Mg Tab, 7.5 MG OR weekly, (Reported) sunday Morphine Sulfate (Morphine Sulfate ER) 30 Mg Tabcr, 30 MG PO BID, #10 Multivitamins (Multivitamin) 1 Tab Tab, 1 TAB PO DAILY, (Reported) Promethazine Hcl (Phenergan) 25 Mg Tab, 25 MG PO Q8HP, (Reported) Rizatriptan Benzoate (Maxalt) 10 Mg Tab, 10 MG PO PRN, (Reported) Sertraline Hcl (Sertraline Hcl) 100 Mg Tab, 100 MG PO DAILY, (Reported) Terazosin HCl (Terazosin HCl) 1 Mg Cap, 1 MG PO QHS, (Reported) Vitamin B Complex (Vitamin B Complex) Tab, 1 TAB PO DAILY, (Reported) Vitamin D (Vitamin D) 1,000 Unit Cap, 2,000 UNIT PO DAILY, (Reported) Warfarin Sod (Coumadin) 2.5 Mg Tab, 1 TAB PO ASDIRECTED, #90 MDD = 6 tabs [clobetasol] , 0.05 % TOP PRN, (Reported) Scheduled PRN (Hydrocodone/Acetaminophen) 1 Tab Tab, 1 TAB PO Q4HP PRN for PAIN, (Reported) Artificial Tears (Artificial Tears) 1.4 % Kalpana, 1 DROP OU PRN PRN for DRY EYES, ( Reported) Cyclobenzaprine Hcl (Cyclobenzaprine Hcl) 10 Mg Tab, 10 MG PO BIDP PRN for MUSCLE SPASMS, (Reported) Lidocaine (Lidoderm) 5 % Dis, 5 % TOP DAILYPRN PRN for PAIN, (Reported) Oxycodone/Acetaminophen (Percocet 5-325 mg) 1 Tab Tab, 1-2 TAB PO Q4H PRN for PAIN, #40 GME ATTESTATION GME ATTESTATION My faculty preceptor for this patient encounter was physically present during the encounter and was fully available. All aspects of the patient interview, examination, medical decision making process, and medical care plan development were reviewed and approved by the faculty preceptor. The faculty preceptor is aware and concurs with the plan as stated in the body of this note and will attest to such by his/her cosignature. ATTENDING NOTE I, Petey Gordon, have both independently examined this patient as well as reviewed the documentation. I have discussed in detail with the resident the findings and plan of treatment as documented in the residents documentation. I will continue to follow the patient and offer further guidance to the patients care as necessary during this hospital stay. BEAR MAYBERRY DO Sep 03, 2017 18:23 EPTEY GORDON MD Sep 07, 2017 15:51
[2017-09-03] MEDS ORDERED: ACETAMINOPHEN TAB 650MG DOSE (2X325MG) PO PRN (18:30)
[2017-09-03] MEDS: LANSOPRAZOLE 30 MG PO SCH (19:00)
[2017-09-03] MEDS ORDERED: CEFAZOLIN SOD 2 GM in APPROPRIATE DILUENT 1 EA IV SCH (20:00)
[2017-09-03] MEDS: HYDROmorphone HCL 2 MG/ML 1ML VIAL (J1170) IV PRN (20:50)
[2017-09-03] MEDS: TERAZOSIN 1 MG CAP PO SCH (21:25)
[2017-09-03 22:00] VITALS: BP 142/71
[2017-09-04] MEDS: HYDROmorphone HCL 2 MG/ML 1ML VIAL (J1170) IV PRN ×4 (00:54→23:41)
[2017-09-04 02:00] VITALS: BP 136/77
[2017-09-04] MEDS: ACETAMINOPHEN TAB 650MG DOSE (2X325MG) PO PRN ×2 (04:18→14:05)
[2017-09-04 06:00] VITALS: BP 143/64
[2017-09-04] MEDS: LEVOTHYROXINE 100MCG TABLET (0.1MG) PO SCH (06:00)
[2017-09-04 06:42] LABS: MEAN CORPUSCULAR HEMOGLOBIN 32.1 pg (27.0-33.0); MEAN CORPUSCULAR HGB CONC 33.2 g/dl (32.0-36.5); MEAN CORPUSCULAR VOLUME 96.5 fl (80.0-96.0); PLATELET COUNT, AUTOMATED 156 10^3/uL (150-450); RED CELL DISTRIBUTION WIDTH 12.7 % (11.5-14.5); WHITE BLOOD COUNT 9.3 10^3/uL (4.0-10.0)
[2017-09-04] MEDS ORDERED: ONDANSETRON 4 MG TAB (S0181) PO PRN (06:45)
[2017-09-04] MEDS ORDERED: TAPENTADOL 50 MG TABLET (NUCYNTA) PO PRN (06:45)
[2017-09-04] MEDS ORDERED: MOM 30ML SUSPENSION UDC PO SCH (06:45)
[2017-09-04 06:53] LABS: INR 1.34
[2017-09-04 06:58] LABS: ANION GAP 3 MEQ/L (8-16); BLOOD UREA NITROGEN 11 MG/DL (7-18); CALCIUM LEVEL 8.9 MG/DL (8.8-10.2); CARBON DIOXIDE LEVEL 32 MEQ/L (21-32); CHLORIDE LEVEL 105 MEQ/L (98-107); CREATININE FOR GFR 0.87 MG/DL (0.55-1.02); GLOMERULAR FILTRATION RATE > 60.0 (>45); GLUCOSE, FASTING 130 MG/DL (80-110); SODIUM LEVEL 140 MEQ/L (136-145)
[2017-09-04] MEDS: amLODIPine 10 MG TAB PO SCH (08:57)
[2017-09-04] MEDS: SENOKOT S TAB PO SCH ×2 (08:57→21:59)
[2017-09-04] MEDS: MOM 30ML SUSPENSION UDC PO SCH (08:57)
[2017-09-04] MEDS: MIRALAX *UNIT DOSE* 17GM PACKET PO SCH (08:57)
[2017-09-04] MEDS: HYDROmorphone HCL 1 MG/ML SYRINGE (J1170) IV PRN ×2 (08:58→14:05)
[2017-09-04] MEDS ORDERED: LANSOPRAZOLE SUSPENSION 30 MG/10 ML ORAL SYRINGE (FIRST-LANSOPRAZOLE) PO SCH (09:00)
[2017-09-04] MEDS ORDERED: SERTRALINE 100 MG TAB PO SCH (09:00)
--- NOTE | 2017-09-04 09:59 | REP ---
Clinical: Status post knee replacement. Technique AP and cross-table lateral views. Findings: The patient is status post right knee replacement with normal positioning and appearance to the femoral and tibial components. Overlying postsurgical changes appreciated. Impression: Status post right knee replacement. Signed by Demar Sam MD 09/04/2017 09:50 A
--- NOTE | 2017-09-04 11:11 | IPNPDOC ---
Text Note Date of Service The patient was seen on 09/04/17. NOTE Subjective: Patient is a 67 year old female with a PMHx of RA, Depression, HTN, Nikolai's disease, Fibromyalgia, Chronic fatigue syndrome and Pseudogout who presented to [facility] fro an elective right TKA on 09/03. Patient received medical clearance as an outpatient. Patient was seen and examined at the bedside. Currently she notes persistent right knee pain. Will be working with physical therapy today. Objective: Vitals (See below) General: Lying in bed, no acute distress, comfortable, AAOx3 HEENT: NC, AT CVS: RRR, +S1S2 Lungs: Fair air entry b/l, -w/r/r Abdomen: Soft, ND, NT Extremities: - Edema, - Calf tenderness; Right knee in dressing Assessment and plan: Right knee pain - likely 2/2 osteoarthritis - s/p total right knee arthroplasty (POD#1) - Failed to improve with medical management - Will be working with physical therapy today - Pain control and anticoagulation as per surgical team HTN - Blood pressure remains well-controlled - Continue with amlodipine and Terazosin Nikolai's disease / hypothyroidism - Continue with levothyroxine Rheumatoid arthritis - Will hold weekly dosing of methotrexate (receives on Saturdays) Depression - Continue sertraline; allow home use of medications GERD - Continue with PPI DVT prophylaxis - As per surgical team Rodrick MUNOZ, I+O VSRodrick, I+O Laboratory Tests 09/04/17 06:34 Red Blood Count 3.15 L, Mean Corpuscular Volume 96.5 H, Mean Corpuscular Hemoglobin 32.1, Mean Corpuscular Hemoglobin Concent 33.2, Red Cell Distribution Width 12.7, Calcium Level 8.9 Vital Signs Date Time Temp Pulse Resp B/P (MAP) Pulse Ox O2 Delivery O2 Flow Rate FiO2 09/04/17 09:08 20 98 Room Air 09/04/17 08:57 143/64 09/04/17 06:00 98.4 71 09/03/17 17:15 2.0 I&O- Last 24 Hours up to 6 AM 09/05/17 06:00 Intake Total 420 ml Output Total 150 ml Balance 270 ml WING MCKENNA MD Sep 04, 2017 11:11
[2017-09-04] MEDS: TAPENTADOL 50 MG TABLET (NUCYNTA) PO PRN ×2 (11:24→22:00)
[2017-09-04] MEDS ORDERED: PROMETHAZINE 25 MG TAB PO PRN (13:30)
[2017-09-04 14:00] VITALS: BP 148/62
[2017-09-04] MEDS ORDERED: WARFARIN SOD 5 MG TAB PO ONE (17:00)
[2017-09-04] MEDS: LANSOPRAZOLE 30 MG PO SCH (17:13)
[2017-09-04 22:00] VITALS: BP 148/89
[2017-09-04] MEDS: TERAZOSIN 1 MG CAP PO SCH (22:00)
[2017-09-05 06:00] VITALS: BP 159/67
[2017-09-05] MEDS: LEVOTHYROXINE 100MCG TABLET (0.1MG) PO SCH (06:18)
[2017-09-05] MEDS: TAPENTADOL 50 MG TABLET (NUCYNTA) PO PRN (06:19)
[2017-09-05] MEDS: amLODIPine 10 MG TAB PO SCH (08:11)
[2017-09-05] MEDS: MIRALAX *UNIT DOSE* 17GM PACKET PO SCH (08:11)
[2017-09-05] MEDS: SENOKOT S TAB PO SCH ×2 (08:11→21:45)
[2017-09-05] MEDS: MOM 30ML SUSPENSION UDC PO SCH (08:11)
[2017-09-05] MEDS: MORPHINE 30 MG SA TAB PO SCH ×2 (08:12→21:44)
[2017-09-05 08:37] LABS: MEAN CORPUSCULAR HGB CONC 33.2 g/dl (32.0-36.5); MEAN CORPUSCULAR VOLUME 96.3 fl (80.0-96.0); PLATELET COUNT, AUTOMATED 181 10^3/uL (150-450); RED CELL DISTRIBUTION WIDTH 13.2 % (11.5-14.5); WHITE BLOOD COUNT 10.7 10^3/uL (4.0-10.0)
[2017-09-05 08:49] LABS: INR 1.8
[2017-09-05 09:00] LABS: ANION GAP 4 MEQ/L (8-16); BLOOD UREA NITROGEN 10 MG/DL (7-18); CALCIUM LEVEL 8.4 MG/DL (8.8-10.2); CARBON DIOXIDE LEVEL 32 MEQ/L (21-32); CHLORIDE LEVEL 103 MEQ/L (98-107); GLOMERULAR FILTRATION RATE > 60.0 (>45); GLUCOSE, FASTING 116 MG/DL (80-110); POTASSIUM SERUM 3.7 MEQ/L (3.5-5.1); SODIUM LEVEL 139 MEQ/L (136-145)
[2017-09-05] MEDS ORDERED: MORP30TASA PO (09:10)
[2017-09-05] MEDS ORDERED: PERC5TAB12 PO (09:10)
[2017-09-05] MEDS ORDERED: COUM2.5T17 PO (09:10)
[2017-09-05] MEDS: PERCOCET 5MG/325MG TAB PO PRN ×3 (11:44→23:57)
[2017-09-05 14:00] VITALS: BP 156/70
--- NOTE | 2017-09-05 14:21 | IPNPDOC ---
Text Note Date of Service The patient was seen on 09/05/17. NOTE Subjective: Patient is a 67 year old female with a PMHx of RA, Depression, HTN, Nikolai's disease, Fibromyalgia, Chronic fatigue syndrome and Pseudogout who presented to [facility] fro an elective right TKA on 09/03. Patient received medical clearance as an outpatient. Patient was seen and examined at the bedside. Patient has noted that her right knee pain has improved as worked with physical therapy yesterday, however, has not been cleared, will continue with physical therapy today. Objective: Vitals (See below) General: Lying in bed, no acute distress, comfortable, AAOx3 HEENT: NC, AT CVS: RRR, +S1S2 Lungs: Fair air entry b/l, -w/r/r Abdomen: Soft, ND, NT Extremities: - Edema, - Calf tenderness; Right knee in dressing Assessment and plan: Right knee pain - likely 2/2 osteoarthritis - s/p total right knee arthroplasty (POD#1) - Failed to improve with medical management and had difficulty with ADLs - c/w physical therapy until patient has been cleared - Pain control and anticoagulation as per surgical team HTN - Blood pressure remains moderately controlled - Likely elevated secondary to pain - c/w with amlodipine and Terazosin Nikolai's disease / hypothyroidism - c/w levothyroxine Rheumatoid arthritis - Will hold weekly dosing of methotrexate (receives on Saturdays) Depression - Continue sertraline; allow home use of medications GERD - Continue with PPI DVT prophylaxis - As per surgical team VS,Rodrick, I+O VS, Rodrick, I+O Laboratory Tests 09/05/17 08:32 Red Blood Count 3.28 L, Mean Corpuscular Volume 96.3 H, Mean Corpuscular Hemoglobin 32.0, Mean Corpuscular Hemoglobin Concent 33.2, Red Cell Distribution Width 13.2, Calcium Level 8.4 L Vital Signs Date Time Temp Pulse Resp B/P (MAP) Pulse Ox O2 Delivery O2 Flow Rate FiO2 09/05/17 12:14 16 09/05/17 08:11 86 160/62 09/05/17 08:00 Room Air 09/05/17 06:00 99.1 94 09/03/17 17:15 2.0 I&O- Last 24 Hours up to 6 AM 09/06/17 06:00 Intake Total 240 ml Balance 240 ml WING MCKENNA MD Sep 05, 2017 14:21
[2017-09-05] MEDS: LANSOPRAZOLE 30 MG PO SCH (17:28)
[2017-09-05] MEDS: TERAZOSIN 1 MG CAP PO SCH (21:45)
[2017-09-05 22:00] VITALS: BP 152/76
[2017-09-06] MEDS: LEVOTHYROXINE 100MCG TABLET (0.1MG) PO SCH (05:30)
[2017-09-06] MEDS: PERCOCET 5MG/325MG TAB PO PRN (05:31)
[2017-09-06 06:00] VITALS: BP 143/66
[2017-09-06 06:48] LABS: MEAN CORPUSCULAR HEMOGLOBIN 31.3 pg (27.0-33.0); MEAN CORPUSCULAR HGB CONC 32.3 g/dl (32.0-36.5); MEAN CORPUSCULAR VOLUME 96.7 fl (80.0-96.0); PLATELET COUNT, AUTOMATED 169 10^3/uL (150-450); WHITE BLOOD COUNT 6.3 10^3/uL (4.0-10.0)
[2017-09-06 06:59] LABS: INR 1.65
[2017-09-06 07:09] LABS: ANION GAP 4 MEQ/L (8-16); BLOOD UREA NITROGEN 10 MG/DL (7-18); CALCIUM LEVEL 8.3 MG/DL (8.8-10.2); CARBON DIOXIDE LEVEL 33 MEQ/L (21-32); CHLORIDE LEVEL 105 MEQ/L (98-107); CREATININE FOR GFR 0.68 MG/DL (0.55-1.02); GLOMERULAR FILTRATION RATE > 60.0 (>45); GLUCOSE, FASTING 96 MG/DL (80-110); POTASSIUM SERUM 4.1 MEQ/L (3.5-5.1); SODIUM LEVEL 142 MEQ/L (136-145)
[2017-09-06] MEDS: MOM 30ML SUSPENSION UDC PO SCH (09:24)
[2017-09-06] MEDS: MIRALAX *UNIT DOSE* 17GM PACKET PO SCH (09:24)
[2017-09-06] MEDS: SENOKOT S TAB PO SCH (09:24)
[2017-09-06 09:25] VITALS: BP 143/66
[2017-09-06] MEDS: MORPHINE 30 MG SA TAB PO SCH (09:25)
[2017-09-06] MEDS: amLODIPine 10 MG TAB PO SCH (09:25)
--- NOTE | 2017-09-06 11:45 | IPNPDOC ---
Text Note Date of Service The patient was seen on 09/06/17. NOTE Subjective: Patient is a 67 year old female with a PMHx of RA, Depression, HTN, Nikolai's disease, Fibromyalgia, Chronic fatigue syndrome and Pseudogout who presented to [facility] fro an elective right TKA on 09/03. Patient received medical clearance as an outpatient. Patient was seen and examined at the bedside. She notes that her right knee pain has been doing well with the current pain regimen. She is working with physical therapy and will continue to do so. Orthopedic surgery may possibly send patient home today. Objective: Vitals (See below) General: Lying in bed, no acute distress, comfortable, AAOx3 HEENT: NC, AT CVS: RRR, +S1S2 Lungs: Fair air entry b/l, -w/r/r Abdomen: Soft, ND, NT Extremities: - Edema, - Calf tenderness; Right knee with clear dressing in place. No evidence of erythema, drainage or discharge Assessment and plan: Right knee pain - likely 2/2 osteoarthritis - s/p total right knee arthroplasty (POD#2) - Failed to improve with medical management and had difficulty with ADLs -Has been working with physical therapy, awaiting clearance - Pain control and anticoagulation as per surgical team HTN - Blood pressure better controlled today - Pain has been better controlled - c/w with Amlodipine and Terazosin Nikolai's disease / hypothyroidism - c/w levothyroxine Rheumatoid arthritis - Will continue with methotrexate as an outpatient Depression - Continue sertraline; allow home use of medications GERD - Continue with PPI DVT prophylaxis - As per surgical team VSRodrick, I+O VSRodrick, I+O Laboratory Tests 09/06/17 06:23 Red Blood Count 3.04 L, Mean Corpuscular Volume 96.7 H, Mean Corpuscular Hemoglobin 31.3, Mean Corpuscular Hemoglobin Concent 32.3, Red Cell Distribution Width 13.0, Calcium Level 8.3 L Vital Signs Date Time Temp Pulse Resp B/P (MAP) Pulse Ox O2 Delivery O2 Flow Rate FiO2 09/06/17 09:25 16 09/06/17 09:25 78 143/66 09/06/17 08:00 Room Air 09/06/17 06:00 98.2 94 09/03/17 17:15 2.0 I&O- Last 24 Hours up to 6 AM 09/07/17 06:00 Intake Total 420 ml Balance 420 ml WING MCKENNA MD Sep 06, 2017 11:45
--- NOTE | 2017-09-10 10:24 | DSES ---
DATE OF ADMISSION: 09/03/2017 DATE OF DISCHARGE: 09/06/2017 ATTENDING PHYSICIAN: Dr. David ADMITTING DIAGNOSIS: Right knee degenerative arthritis. OTHER DIAGNOSES: Rheumatoid arthritis, depression, hypertension, Nikolai's thyroiditis, fibromyalgia, chronic fatigue syndrome, pseudogout, gastroesophageal reflux disease. DISCHARGE DIAGNOSIS: Right knee degenerative arthritis status post right total knee arthroplasty. HISTORY: Patient is a 67-year-old female with progressively worsening right knee pain and stiffness. She failed with improve with conservative measures, so she consented for an elective right total knee arthroplasty with Dr. David. OPERATION PERFORMED: Right total knee arthroplasty. HOSPITAL COURSE: The patient underwent a right total knee arthroplasty under spinal anesthesia with femoral nerve block which was uneventful. Her hospital course was without complication and she was up with physical therapy per their protocol weightbearing as tolerated on the right lower extremity. She was discharged on oral pain medications and will resume her preoperative medications and diet. She will take her Coumadin and use her thromboembolic deterrent stockings for 30 days postoperatively to prevent deep venous thrombosis. She will followup in our office in 12-14 days for a wound check and staple removal. She is encouraged to contact our office sooner if there is any increased pain, drainage, redness, numbness, or tingling in the extremity, fever greater than 101 degrees, or any other concerns. Please see medical record for additional details. BYRON
== END 2017-09-06 11:10 | disposition home health service (06) | DRG 470 ==
LOC: M OR 08:47 → M MS5PR 14:33
PROVIDERS: ADMIT Orthopaedic Surgery; ATTEND Orthopaedic Surgery
PROC: 0SRC0J9 Replacement of Right Knee Joint with Synthetic Substitute, Cemented, Open Approach (ICD-10-PCS; principal; 2017-09-03 11:15)
DX: M17.11 Unilateral primary osteoarthritis, right knee (principal); E06.3 Autoimmune thyroiditis; I10 Essential (primary) hypertension; F32.9 Major depressive disorder, single episode, unspecified; K21.9 Gastro-esophageal reflux disease without esophagitis; M06.9 Rheumatoid arthritis, unspecified; Z88.6 Allergy status to analgesic agent; Z88.1 Allergy status to other antibiotic agents; Z88.2 Allergy status to sulfonamides; Z88.8 Allergy status to other drugs, medicaments and biological substances; Z79.899 Other long term (current) drug therapy

== ENCOUNTER → 2017-09-10 | Outpatient (REF) | payer MEDICARE ==
[~2017-09-10] MED LIST changes: +COUM2.5T17 PO; +MORP30TASA PO; +PERC5TAB12 PO
[2017-09-10 15:27] LABS: INR 2.24
== END ==
LOC: M SHH 14:44
PROVIDERS: ATTEND Nurse Practitioner Family
DX: Z79.01 Long term (current) use of anticoagulants (principal)

== ENCOUNTER → 2017-09-13 | Outpatient (REF) | payer MEDICARE ==
[2017-09-13 16:04] LABS: INR 1.67
== END ==
LOC: M LAB REF 15:04
PROVIDERS: ATTEND Nurse Practitioner Family
DX: Z79.01 Long term (current) use of anticoagulants (principal)

== ENCOUNTER → 2017-09-17 | Outpatient (REF) | payer MEDICARE ==
[2017-09-17 11:48] LABS: INR 1.38
== END ==
LOC: M LABDRAW1 09:42
PROVIDERS: ATTEND Nurse Practitioner Family
DX: Z79.01 Long term (current) use of anticoagulants (principal)

== ENCOUNTER → 2017-09-20 | Outpatient (REF) | payer MEDICARE ==
[2017-09-20 14:02] LABS: INR 1.72
== END ==
LOC: M SHH 13:28
PROVIDERS: ATTEND Nurse Practitioner Family
DX: Z51.81 Encounter for therapeutic drug level monitoring (principal); Z79.01 Long term (current) use of anticoagulants

== ENCOUNTER → 2017-09-24 | Outpatient (REF) | payer MEDICARE ==
[2017-09-24 15:28] LABS: INR 2.11
== END ==
LOC: M SHH 14:58
PROVIDERS: ATTEND Nurse Practitioner Family
DX: Z51.81 Encounter for therapeutic drug level monitoring (principal); Z79.01 Long term (current) use of anticoagulants

== ENCOUNTER → 2017-09-27 | Outpatient (REF) | payer MEDICARE ==
[2017-09-27 11:08] LABS: INR 1.95
== END ==
LOC: M SHH 10:28
PROVIDERS: ATTEND Nurse Practitioner Family
DX: Z51.81 Encounter for therapeutic drug level monitoring (principal); Z79.01 Long term (current) use of anticoagulants

== ENCOUNTER → 2017-10-01 | Outpatient (REF) | payer MEDICARE ==
[2017-10-01 13:37] LABS: INR 1.9
== END ==
LOC: M SHH 13:06
PROVIDERS: ATTEND Nurse Practitioner Family
DX: Z79.01 Long term (current) use of anticoagulants (principal)

== ENCOUNTER → 2017-11-09 | Outpatient (REF) | payer MEDICARE ==
[2017-11-09 20:19] LABS: BLOOD UREA NITROGEN 17 MG/DL (7-18)
[2017-11-09 20:19] LABS: ALBUMIN 3.7 GM/DL (3.2-5.2); ALT/SGPT 21 U/L (12-78); CREATININE FOR GFR 0.88 MG/DL (0.55-1.02); GLOMERULAR FILTRATION RATE > 60.0 (>45)
[2017-11-09 20:27] LABS: EOS # 0.2 10^3/uL (0.0-0.50); EOS % 4.1 % (0.0-3.0); HEMATOCRIT 35.1 % (36.0-47.0); HEMOGLOBIN 11.1 g/dl (12.0-16.0); IMMATURE GRANULOCYTE % 0.6 % (0-0); LYMPH # 0.9 10^3/uL (1.5-4.5); LYMPH % 16.4 % (24.0-44.0); MEAN CORPUSCULAR HEMOGLOBIN 30.3 pg (27.0-33.0); MEAN CORPUSCULAR HGB CONC 31.6 g/dl (32.0-36.5); MEAN CORPUSCULAR VOLUME 95.9 fl (80.0-96.0); MONO # 0.5 10^3/uL (0.0-0.8); MONO % 9.4 % (0.0-5.0); NEUTROPHILS # 3.7 10^3/uL (1.8-7.7); NEUTROPHILS % 69.5 % (36.0-66.0); PLATELET COUNT, AUTOMATED 202 10^3/uL (150-450); RED BLOOD COUNT 3.66 10^6/uL (4.00-5.40); RED CELL DISTRIBUTION WIDTH 13.5 % (11.5-14.5); WHITE BLOOD COUNT 5.3 10^3/uL (4.0-10.0)
== END ==
LOC: M LABDRAW1 18:50
DX: M05.79 Rheumatoid arthritis with rheumatoid factor of multiple sites without organ or systems involvement (principal); Z79.899 Other long term (current) drug therapy; N18.2 Chronic kidney disease, stage 2 (mild)
CPT/HCPCS: 84460

== ENCOUNTER → 2017-11-14 | Outpatient (CLI) | payer MEDICARE | LOC: M PAIN 09:00 | DX: M79.7 Fibromyalgia (principal); R53.82 Chronic fatigue, unspecified; I10 Essential (primary) hypertension; M06.9 Rheumatoid arthritis, unspecified; M85.80 Other specified disorders of bone density and structure, unspecified site; G57.61 Lesion of plantar nerve, right lower limb; L30.8 Other specified dermatitis; F11.20 Opioid dependence, uncomplicated; Z79.891 Long term (current) use of opiate analgesic; Z79.899 Other long term (current) drug therapy; Z88.1 Allergy status to other antibiotic agents; Z88.2 Allergy status to sulfonamides; Z88.5 Allergy status to narcotic agent; Z88.6 Allergy status to analgesic agent; Z88.8 Allergy status to other drugs, medicaments and biological substances; Z96.651 Presence of right artificial knee joint | CPT/HCPCS: G0463 ==

== ENCOUNTER → 2017-12-21 | Outpatient (REF) | payer MEDICARE ==
[2017-12-21 12:02] LABS: EOS # 0.4 10^3/uL (0.0-0.50); EOS % 7.4 % (0.0-3.0); HEMOGLOBIN 12.7 g/dl (12.0-16.0); IMMATURE GRANULOCYTE % 0.2 % (0-3.0); LYMPH # 0.8 10^3/uL (1.5-4.5); MEAN CORPUSCULAR HEMOGLOBIN 30.6 pg (27.0-33.0); MEAN CORPUSCULAR HGB CONC 32.6 g/dl (32.0-36.5); MONO # 0.5 10^3/uL (0.0-0.8); MONO % 10.2 % (0.0-5.0); NEUTROPHILS # 3.3 10^3/uL (1.8-7.7); NEUTROPHILS % 66.2 % (36.0-66.0); PLATELET COUNT, AUTOMATED 169 10^3/uL (150-450); RED BLOOD COUNT 4.15 10^6/uL (4.00-5.40); RED CELL DISTRIBUTION WIDTH 14.2 % (11.5-14.5)
[2017-12-21 12:19] LABS: TOTAL PROTEIN,RANDOM URINE 13.9 MG/DL (0.0-12.0)
[2017-12-21 12:58] LABS: ALBUMIN 3.7 GM/DL (3.2-5.2); ALT/SGPT 24 U/L (12-78); CREATININE FOR GFR 0.85 MG/DL (0.55-1.30); GLOMERULAR FILTRATION RATE > 60.0 (>45); IMMUNOGLOBULIN G 631 MG/DL (681-1648); IMMUNOGLOBULIN M 134 MG/DL (40-230)
== END ==
LOC: M LABDRAW1 10:06
DX: D47.2 Monoclonal gammopathy (principal); D80.1 Nonfamilial hypogammaglobulinemia
CPT/HCPCS: 84460

== ENCOUNTER → 2018-02-08 | Outpatient (CLI) | payer MEDICARE | END | disposition home or self-care (01) | LOC: M PAIN 09:15 | DX: G89.29 Other chronic pain (principal); M79.7 Fibromyalgia; M05.79 Rheumatoid arthritis with rheumatoid factor of multiple sites without organ or systems involvement; R53.82 Chronic fatigue, unspecified; I10 Essential (primary) hypertension; Z79.899 Other long term (current) drug therapy; Z79.890 Hormone replacement therapy; Z79.891 Long term (current) use of opiate analgesic; Z88.0 Allergy status to penicillin; Z88.5 Allergy status to narcotic agent; Z88.8 Allergy status to other drugs, medicaments and biological substances | CPT/HCPCS: G0463 ==

== ENCOUNTER → 2018-04-22 | Outpatient (CLI) | payer MEDICARE | LOC: M EKG 10:51 | DX: M79.7 Fibromyalgia (principal) | CPT/HCPCS: 93005 ==

== ENCOUNTER → 2018-04-22 | Outpatient (CLI) | payer MEDICARE | LOC: M PAIN 09:15 | DX: M79.7 Fibromyalgia (principal); M05.79 Rheumatoid arthritis with rheumatoid factor of multiple sites without organ or systems involvement; I10 Essential (primary) hypertension; M85.80 Other specified disorders of bone density and structure, unspecified site; G57.81 Other specified mononeuropathies of right lower limb; F11.20 Opioid dependence, uncomplicated; Z79.891 Long term (current) use of opiate analgesic; Z79.899 Other long term (current) drug therapy; Z88.8 Allergy status to other drugs, medicaments and biological substances; Z88.5 Allergy status to narcotic agent; Z88.2 Allergy status to sulfonamides; Z88.6 Allergy status to analgesic agent; Z96.651 Presence of right artificial knee joint | CPT/HCPCS: G0463 ==

== ENCOUNTER → 2018-07-02 | Outpatient (REF) | payer MEDICARE ==
[2018-07-02 11:21] LABS: EOS # 0.2 10^3/uL (0.0-0.50); HEMATOCRIT 39.7 % (36.0-47.0); HEMOGLOBIN 12.9 g/dl (12.0-15.5); IMMATURE GRANULOCYTE % 0.2 % (0-3.0); LYMPH # 0.7 10^3/uL (1.5-4.5); LYMPH % 13.3 % (24.0-44.0); MEAN CORPUSCULAR HEMOGLOBIN 31.7 pg (27.0-33.0); MEAN CORPUSCULAR HGB CONC 32.5 g/dl (32.0-36.5); MEAN CORPUSCULAR VOLUME 97.5 fl (80.0-96.0); MONO # 0.3 10^3/uL (0.0-0.8); MONO % 6.3 % (0.0-5.0); NEUTROPHILS # 3.8 10^3/uL (1.8-7.7); NEUTROPHILS % 77.2 % (36.0-66.0); PLATELET COUNT, AUTOMATED 203 10^3/uL (150-450); RED BLOOD COUNT 4.07 10^6/uL (4.00-5.40); RED CELL DISTRIBUTION WIDTH 13.4 % (11.5-14.5)
[2018-07-02 11:58] LABS: C REACTIVE PROTEIN QUANTITATIV 0.81 MG/DL (0.00-0.30)
[2018-07-02 12:04] LABS: ERYTHROCYTE SEDIMENTATION RATE 29 mm/hr (0-30)
== END ==
LOC: M LABDRAW1 11:08
DX: M25.561 Pain in right knee (principal)
CPT/HCPCS: 86140

== ENCOUNTER → 2018-07-19 | Outpatient (REF) | payer MEDICARE ==
[2018-07-19 12:15] LABS: ALBUMIN 4.4 GM/DL (3.2-5.2); ALBUMIN/GLOBULIN RATIO 1.38 (1.00-1.93); ALKALINE PHOSPHATASE 127 U/L (45-117); ALT/SGPT 23 U/L (12-78); ANION GAP 7 MEQ/L (8-16); AST/SGOT 20 U/L (7-37); BILIRUBIN,TOTAL 0.4 MG/DL (0.2-1.0); BLOOD UREA NITROGEN 17 MG/DL (7-18); C REACTIVE PROTEIN QUANTITATIV 0.68 MG/DL (0.00-0.30); CALCIUM LEVEL 9.5 MG/DL (8.8-10.2); CARBON DIOXIDE LEVEL 30 MEQ/L (21-32); CHLORIDE LEVEL 103 MEQ/L (98-107); CREATININE FOR GFR 0.97 MG/DL (0.55-1.30); GLOMERULAR FILTRATION RATE > 60.0 (>45); GLUCOSE, FASTING 90 MG/DL (70-100); POTASSIUM SERUM 4.5 MEQ/L (3.5-5.1); RHEUMATOID FACTOR QUANT < 10.0 IU/ML (<15.0); SODIUM LEVEL 140 MEQ/L (136-145); TOTAL PROTEIN 7.6 GM/DL (6.4-8.2); URIC ACID 2.8 MG/DL (2.6-6.0)
[2018-07-19 12:24] LABS: TOTAL 25(OH) VITAMIN D 31.5 NG/ML (30.0-100.0)
[2018-07-19 12:25] LABS: HEPATITIS B SURFACE ANTIBODY NEGATIVE (POSITIVE)
[2018-07-19 12:36] LABS: HEPATITIS B SURFACE ANTIGEN NEGATIVE (NEGATIVE)
[2018-07-19 13:04] LABS: HEPATITIS C VIRUS ABY INDEX 0.2 INDEX (<0.8)
[2018-07-21 00:06] LABS: CYCLIC CITRULLINATED PEPTIDE 8 units (0-19)
[2018-07-21 00:06] LABS: ANA (HEP2) Negative (.)
== END ==
LOC: M SFHCLERA 09:04
DX: M06.09 Rheumatoid arthritis without rheumatoid factor, multiple sites (principal); Z79.890 Hormone replacement therapy; Z79.899 Other long term (current) drug therapy; Z79.891 Long term (current) use of opiate analgesic; M79.7 Fibromyalgia
CPT/HCPCS: 84550

== ENCOUNTER → 2018-07-19 | Outpatient (CLI) | payer MEDICARE | LOC: M LRY 09:11 | DX: M06.09 Rheumatoid arthritis without rheumatoid factor, multiple sites (principal); R93.7 Abnormal findings on diagnostic imaging of other parts of musculoskeletal system | CPT/HCPCS: 73130; 84550; G0463 ==

== ENCOUNTER → 2018-07-22 | Outpatient (CLI) | payer MEDICARE | LOC: M PAIN 09:00 | DX: M79.7 Fibromyalgia (principal); M06.09 Rheumatoid arthritis without rheumatoid factor, multiple sites; R53.82 Chronic fatigue, unspecified; I10 Essential (primary) hypertension; M19.90 Unspecified osteoarthritis, unspecified site; M85.80 Other specified disorders of bone density and structure, unspecified site; G57.61 Lesion of plantar nerve, right lower limb; Z79.891 Long term (current) use of opiate analgesic; Z79.899 Other long term (current) drug therapy; Z88.2 Allergy status to sulfonamides; Z88.5 Allergy status to narcotic agent; Z88.8 Allergy status to other drugs, medicaments and biological substances; Z88.6 Allergy status to analgesic agent | CPT/HCPCS: G0463 ==

== ENCOUNTER → 2018-10-22 | Outpatient (CLI) | payer MEDICARE ==
[~2018-10-22] MED LIST changes: +TERA1CAP3 PO; -TERA1CAP46 PO
--- NOTE | 2018-11-11 01:47 | ECWPNPC ---
PATIENT NAME: AMIE BRYANT : 1950 GENDER: FEMALE VISIT DATE: 10/22/2018 DISCHARGE DATE: 10/22/18 1022 VISIT LOCKED DATE TIME: PHYSICIAN: LEXY RUIZ RESOURCE: LEXY RUIZ REASON FOR APPOINTMENT 1. GEN PAIN/ MED MANAGEMENT HISTORY OF PRESENT ILLNESS HISTORY OF PRESENT ILLNESS: HERE FOR F/U OF CHRONIC GENERALIZED BACK PAIN ,FIBROMYALGIA AND CHRONIC FATIGUE SYNDROME.STARTED ON TIZANIDINE 2MG PRN FOR MUSCLE CRAMPING AND SPASMS WHICH IS HELPING.RATING PAIN VAS 4/10. PAIN INCREASES DAY PROGRESSES.DESCRIBES PAIN CONSTANT,ACHING AND BURNING. PAIN THE PATIENT DESCRIBES THE PAIN... FALL RISK SCREENING: SCREENING :NO FALLS IN THE PAST YEAR CURRENT MEDICATIONS TAKING NORVASC 10 MG TABLET 1 TABLET ORALLY ONCE A DAY TAKING LUBRICANTS EYE GTTS/OTC LIQUID 1-2 DROPS OU NEEDED TAKING LEVOTHYROXINE SODIUM 75 MCG TABLET 1 TABLET EVERY MORNING ON AN EMPTY STOMACH ORALLY ONCE A DAY TAKING MAXALT 10 MG TABLET 1 TABLET ORALLY NEEDED TAKING PREVACID 30 MG CAPSULE DELAYED RELEASE 1 CAPSULE BEFORE A MEAL ORALLY ONCE A DAY TAKING VITAMIN B COMPLEX OTC TABLET 1 TABLET ORALLY ONCE A DAY TAKING VITAMIN C 500 MG TABLET 1 TABLET ORALLY TWICE A DAY TAKING CALCIUM + D 630MG/500IU TABLET 1 TABLET ORALLY TWICE A DAY TAKING VITAMIN D 2000 UNIT TABLET 2 CAPSULE ORALLY ONCE A DAY TAKING MULTIVITAMINS OTC TABLET 1 TABLET ORALLY ONCE A DAY TAKING CLOBETASOL PROPIONATE 0.05 % OINTMENT 1 APPLICATION TO AFFECTED AREA EXTERNALLY NEEDED TAKING SERTRALINE HCL 100 MG TABLET 1 TABLET ORALLY DAILY TAKING HYDROXYZINE HCL 10 MG TABLET 1 TABLET ORALLY NEEDED FOR ITCHING TAKING SPIRONOLACTONE 25 MG TABLET 1 TABLET WITH FOOD ORALLY ONCE A DAY TAKING TIZANIDINE HCL 2 MG TABLET 1 TABLET NEEDED ORALLY BID PRN PAIN/SPASM TAKING PROMETHAZINE HCL 25 MG TABLET 1 TAB(S) ORALLY EVERY 8 HOURS NEEDED TAKING MELOXICAM 15 MG TABLET 1/2 TO 1 TABLET ORALLY ONCE A DAY TAKING METHOTREXATE 2.5 MG TABLET 5 TABLETS ORALLY ONCE A WEEK TAKING FOLIC ACID 1 MG TABLET 1 TABLET ORALLY ONCE A DAY TAKING NORCO 7.5-325 MG TABLET 1 -2TABS ORALLY EVERY 4-6 HOURS PRN PAIN MDD=6 TAKING METHADONE HCL 10 MG TABLET 1 TABLET ORALLY EVERY 6 HRS. MDD= 4 CHRONIC PAIN NOT-TAKING METRONIDAZOLE 0.75 % CREAM 1 APPLICATION TO AFFECTED AREA EXTERNALLY TWICE A DAY NOT-TAKING LIDODERM 5 % PATCH 1 PATCH TO INTACT SKIN REMOVE AFTER 12 HOURS EXTERNALLY ONCE A DAY NEEDED FOR SEVERE TENDER POINT PAIN DISCONTINUED FOLIC ACID 1 MG TABLET 1 TABLET ORALLY ONCE A DAY, NOTES: DUPLICATE ORDER DISCONTINUED METHOTREXATE 2.5 MG TABLET 5 TABS ORALLY ONCE A WEEK, NOTES: DUPLICATE ORDER MEDICATION LIST REVIEWED AND RECONCILED WITH THE PATIENT PAST MEDICAL HISTORY FIBROMYALGIA SEES DR ZHENG CHRONIC FATIGUE SYNDROME HX SHELLY'S DISEASE HYPERTENSION OSTEOARTHRITIS OSTEOPENIA LUTZ'S 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[place], ?LUPUS CARPAL TUNNEL SYNDROME INFLAMMATORY ARTHRITIS RHEUMATOID ARTHRITIS TENDONITIS LEFT ELBOW ALLERGIES ALTACE: FATIGUE: SIDE EFFECTS METOPROLOL SUCCINATE: MUSCLE PAIN ,SOB: SIDE EFFECTS MORPHINE SULFATE: PAIN,CONSTIPATION,DRY MOUTH,SOB: SIDE EFFECTS NEURONTIN: DOES NOT HELP PAIN, WEIGHT GAIN: SIDE EFFECTS NORTRIPTYLINE HCL: NAUSEA/VOMITING: SIDE EFFECTS NORVASC: HIVES,SWELLING IN ANKLES, FEET AND EYELIDS: ALLERGY PRUDOXIN: ARMS TURNED RED AND SWELLED UP,FATIGUE: ALLERGY ROZEREM: MUSCLE AND JOINT PAIN: SIDE EFFECTS SONATA: SEVERE ITCHING: ALLERGY TOPAMAX: MUSCLE AND JOINT PAIN,EXHAUSTION: SIDE EFFECTS TRAMADOL-ACETAMINOPHEN: HEADACHES, MOUTH SORES: SIDE EFFECTS TRAZODONE HCL: SEVERE MUSCLE PAIN: SIDE EFFECTS AMOXICILLIN: SEVERE ITCHING, HIVES: ALLERGY OXYCODONE: HIVES,GENERIC FORM: ALLERGY METHADONE: INCREASED PAIN: SIDE EFFECTS INDERAL: CONFUSION: SIDE EFFECTS METHYLPHENIDATE: HIVES,RASH,FACIAL SWELLING: ALLERGY LYRICA: STOPPED WORKING, SWELLING OF HANDS AND FEET, WEIGHT GAIN: SIDE EFFECTS AMBIEN: DIZZINESS: SIDE EFFECTS AVAPRO: ITCHING AND FACIAL SWELLING: ALLERGY BIAXIN: NAUSEA/VOMITING: SIDE EFFECTS BYSTOLIC: PAIN AND ELECTRIC CURRENT SENSATION IN LEGS AND FEET: SIDE EFFECTS CARDIZEM: ITCHING,RASH: ALLERGY CLONIDINE HCL: MUSCLE AND JOINT PAIN: SIDE EFFECTS COLCHICINE: AFTER A FEW DAYS CAUSED INTENSE PAIN: ALLERGY COREG: MUSCLE PAIN: SIDE EFFECTS DYNACIRC CR: MIGRAINES: SIDE EFFECTS EFFEXOR: SOB,EXHAUSTION/GENERIC FORM: SIDE EFFECTS ESTRATEST H.S.: ITCHING, RASH: ALLERGY HYDRALAZINE HCL: RASH, SWELLING LEFT SIDE OF NECK,SEVERE CONSTIPATION, PAIN, WEAK: ALLERGY HYDROCHLOROTHIAZIDE: RASH, ITCHING: ALLERGY KETOPROFEN: HIVES,ITCHING, FACIAL SWELLING: ALLERGY LEVOXYL: CONSTIPATION/UPSET STOMACH: SIDE EFFECTS SULFA (FOR ALLERGY USE ONLY): ITCHING,RASH: ALLERGY NASONEX: MIGRAINES, NASAL PASSAGES VERY SORE: SIDE EFFECTS ADVIL: ITCHING, FACIAL SWELLING: ALLERGY CARDURA: ITCHING, RASH, FACIAL SWELLING, FREQUENT URINATION: ALLERGY IBUPROFEN: ITCHING, FACIAL SWELLING: ALLERGY AZELASTINE HCL: FELT VERY ILL: SIDE EFFECTS ASMANEX 120 METERED DOSES: EXHAUSTED AND WEAK, DID NOT HELP BREATHING: SIDE EFFECTS BACLOFEN: INTENSEPAIN AFTER A COUPLE WEEKS: SIDE EFFECTS LISINOPRIL: ANAPHYLAXIS: ALLERGY TERAZOSIN HCL: EDEMA: SIDE EFFECTS SURGICAL HISTORY SHARIF/BSO 1997 TONSILLECTOMY CARPAL TUNNEL R LAPAROTOMY SEVERAL D & C'S COLONOSCOPY/ENDOSCOPY 01/2012 CARDIAC CATHETERIZATION RIGHT TOTAL KNEE 2016 FAMILY HISTORY FATHER: TYPE I DIABETES. OF KIDNEY FAILURE MOTHER: EMPHYSEMA, TOBACCO USE. SIBLINGS: BROTHER W/ TYPE I DIABETES. BROTHER WITH HYPERTENSION. NO BREAST, COLON OR OVARIAN CANCER IN FAMILY. DAUGHTER WITH FIBROMYALGIA HERNIATED DISCS RA ?. BOTH CHILDREN WITH HYPERTENSION. SON WITH SKIN PROBLEMS, GLUTEN INTOLERANCE. SOCIAL HISTORY GENERAL: TOBACCO USE ARE YOU A:NEVER SMOKER NEVER SMOKER ALCOHOL SCREENING DID YOU HAVE A DRINK CONTAINING ALCOHOL IN THE PAST YEAR?NO POINTS0 INTERPRETATIONNEGATIVE RECREATIONAL DRUG USE DRUG USE?NO CAFFEINE CAFFEINE USE?YES ONE CUP COFFEE DAILY HIV / HEP-C SCREENING HIV TEST OFFERED TO PATIENT:YES DATE OFFERED:01/25/2018 TEST ACCEPTED:NO HEP-C TEST OFFERED TO PATIENT:YES DATE OFFERED:01/25/2018 REASON:PATIENT DECLINED TEST ACCEPTED:NO REASON:PATIENT DECLINED BROCHURE PROVIDED TO PATIENTYES GNOSTICISM [id number] MANDAEN LANGUAGE LANGUAGES SPOKEN:CHADIAN EDUCATION LEVEL OF EDUCATION:[employer] LEARNING BARRIERS / SPECIAL NEEDS CHANGE FROM LAST VISIT?NO BARRIERS TO LEARNING?NO HEARING IMPAIRED?NO VISION IMPAIRED?YES GLASSES FOR READING COGNITIVELY IMPAIRED?NO READINESS TO LEARN?YES LEARNING PREFERENCES?NO LEARNING CAPABILITIES PRESENT?YES EMOTIONAL BARRIERS?NO SPECIAL DEVICES?YES :CANE, WALKER 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 DIET: REGULAR. EXERCISE: PHYSICAL THERAPY EXERCISES AT HOME FOR KNEE. MARITAL STATUS: . OTHERS AT HOME: MOTHER IN LAW, , GRANDSON. NEW PATIENT PAIN DIARY TODAY'S VISIT NOTES, FROM 0-10, WHAT LEVEL IS YOUR PAIN TODAY? 0. PAIN CLINIC PFS, CLERGY, PUBLIC HEALTH REFERRALS PFS REFERRAL NEEDED?NO CLERGY REFERRAL NEEDED?NO PUBLIC HEALTH REFERRAL NEEDED?NO HAS THE PATIENT BEEN EDUCATED REGARDING HIS/HER PLAN OF CARE?YES HAS THE PATIENT BEEN EDUCATED REGARDING PAIN, THE RISK FOR PAIN, THE IMPORTANCE OF EFFECTIVE PAIN MANAGEMENT, AND THE PAIN ASSESSMENT PROCESS?YES ADVANCE DIRECTIVE ADVANCE DIRECTIVE DISCUSSED WITH PATIENT:YES PT HAS HCP STEPHEN BRYANT [phone] REVIEWED 10/22/18 0468 LAS. HOSPITALIZATION/MAJOR DIAGNOSTIC PROCEDURE NO HOSPITALIZATION HISTORY. REVIEW OF SYSTEMS REVIEWED BY: PROVIDER: LEXY JOHNSON . CONSTITUTIONAL: ANY CHANGE IN YOUR MEDICAL CONDITION? NO . CHILLS NO . FEVER NO . INFECTION: DO YOU HAVE NEW INFECTIONS? NO . DO YOU HAVE HISTORY OF MRSA? NO . MUSCULOSKELETAL: ANY NEW PATTERNS OF PAIN OR NUMBNESS? NO . GASTROENTEROLOGY: ANY NEW CHANGE IN BOWEL CONTROL? NO . GENITOURINARY: ANY NEW CHANGE IN BLADDER CONTROL? NO . IS THERE A CHANCE YOU COULD BE ? NO . HEMATOLOGY/LYMPH: DO YOU TAKE ANY BLOOD THINNERS? (FOR EXAMPLE- COUMADIN, PLAVIX, AGGRENOX, PLATEL, PRADAXA, OR XARELTO) NO . WHEN WAS YOUR LAST DOSE? DATE: TIME: . NEUROLOGY: HAVE YOU FALLEN IN THE PAST 6 MONTHS? NO . ANY NEW EXTREMITY NUMBNESS OR WEAKNESS? NO . CARDIOLOGY: DO YOU HAVE A PACEMAKER OR DEFIBRILLATOR? NO . RESPIRATORY: HAVE YOU BEEN SICK IN THE PAST WEEK? RELAPSE OF CHRONIC FATIGUE IN PAST TWO WEEKS . FEVER NO . FLU LIKE SYMPTOMS? NO . COUGH NO . INTEGUMENTARY: DO YOU HAVE ANY RASHES OR OPEN SORES? NO . ALLERGIC/IMMUNO: ARE YOU ALLERGIC TO SHELLFISH OR IV DYE? NO . ANY NEW ALLERGIES? NO . PSYCHIATRIC: DO YOU HAVE THOUGHTS OF HURTING YOURSELF OR SOMEONE ELSE? NO . ARE YOU ABUSED, NEGLECTED, OR IN AN UNSAFE ENVIRONMENT? NO . ENDOCRINOLOGY: ARE YOU DIABETIC? NO . OTHER: DO YOU NEED ANY PRESCRIPTIONS? NO . IF YES, PLEASE LIST: ____ . ANY NEW PROBLEMS WITH YOUR MEDICATIONS? NO . WHEN DID YOU LAST EAT? ____ . WHEN DID YOU LAST DRINK? ____ . WHAT DID YOU LAST DRINK? ____ . NAME OF PERSON DRIVING YOU HOME? ____ . DO YOU HAVE ANY OTHER QUESTIONS OR CONCERNS NO . VITAL SIGNS WT 173.4 LBS, HT 63 IN, BMI 30.71 INDEX, BP 183/77 MM HG, REPEAT BP 162/74 MM HG, HR 76 /MIN, RR 18 /MIN, TEMP 98.7 F, OXYGEN SAT % 95%, SAFE IN ENV? (Y/N) YES, NA INITIALS AW 0904, REVIEWED BY: MALIK. EXAMINATION GENERAL EXAMINATION: GENERAL APPEARANCE:AWAKE,ALERT ,PLEAASANT . PSYCHAFFECT NORMAL . LUNGS:LUNG THORNE ARE CLEAR TO AUSCULTATION BILATERALLY. GOOD MOVEMENT OF AIR . HEART:S1, S2 IN A REGULAR RATE AND RHYTHM. NO SIGNIFICANT MURMURS, RUBS OR GALLOPS NOTED . ASSESSMENTS FIBROMYALGIA - M79.7 (PRIMARY) CHRONIC PRESCRIPTION OPIATE USE - Z79.891 OSTEOARTHROSIS, UNSPECIFIED WHETHER GENERALIZED OR LOCALIZED, OTHER SPECIFIED SITES - 715.98 TREATMENT FIBROMYALGIA CONTINUE TIZANIDINE HCL TABLET, 2 MG, 1 TABLET NEEDED, ORALLY, BID PRN PAIN/SPASM CONTINUE MELOXICAM TABLET, 15 MG, 1/2 TO 1 TABLET, ORALLY, ONCE A DAY DECREASE NORCO TABLET, 7.5-325 MG, 1 TAB, ORALLY, Q4-6H PRN MDD4, 30 DAY(S), 120, REFILLS 0 REFILL METHADONE HCL TABLET, 10 MG, 1 TABLET, ORALLY, EVERY 6 HRS. MDD= 4 CHRONIC PAIN, 30 DAY(S), 120, REFILLS 0 NOTES: ISTOP REGISTRY REVIEWED AND DEMONSTRATES COMPLLIANCE. (REF # [id number] ) BRINGS IN MEDICATIONS WHICH IS APPROPRIATE FOR WHAT WAS DISPENSED. RECENT URINE TOXICOLOGY REVIEWED. NO UNAUTHORIZED MEDICATIONS. NO ILLICIT SUBSTANCES AND PRESCRIBED MEDICATIONS WERE PRESENT. URINE TOX TODAY, RISKS AND BENEFITS OF NARCOTIC/OPIOD MEDICATIONS WERE REVIEWED WITH PATIENT - THIS INCLUDES BUT IS NOT LIMITED TO RISK OF DEPENDANCE/DEVELOPMENT OF ADDICTION, MOOD DISTURBANCE AND DEPRESSION, OSTEOPOROSIS, HORMONAL AND LABIDAL CHANGES, RESPIRATORY DEPRESSION AND . PATIENT IS ADVISED NOT TO DRIVE OR DRINK ALCOHOL WHILE ON THESE MEDICATIONS. PROCEDURE CODES FA211 ESTABILISHED PATIENT [facility] CHARGE DISPOSITION & COMMUNICATION FOLLOW UP 6 WEEKS ELECTRONICALLY SIGNED BY ALEX DAMON ON 11/10/2018 AT 12:12 PM EST DISCLAIMER : THIS IS A VISIT SUMMARY EXTRACTED FROM THE [employer] CHART. IT IS NOT A COPY OF THE [employer] PROGRESS NOTE. [place]
== END ==
LOC: M PAIN 09:00
PROVIDERS: ATTEND Nurse Practitioner Family
DX: M79.7 Fibromyalgia (principal); R53.82 Chronic fatigue, unspecified; I10 Essential (primary) hypertension; M19.90 Unspecified osteoarthritis, unspecified site; M85.80 Other specified disorders of bone density and structure, unspecified site; M06.9 Rheumatoid arthritis, unspecified; Z79.891 Long term (current) use of opiate analgesic; Z79.899 Other long term (current) drug therapy; Z88.1 Allergy status to other antibiotic agents; Z88.2 Allergy status to sulfonamides; Z88.5 Allergy status to narcotic agent; Z88.6 Allergy status to analgesic agent; Z88.8 Allergy status to other drugs, medicaments and biological substances; Z96.651 Presence of right artificial knee joint

== ENCOUNTER → 2018-10-29 | Outpatient (REF) | payer MEDICARE ==
[2018-10-29 13:30] LABS: EOS # 0.1 10^3/uL (0.0-0.50); EOS % 1.8 % (0.0-3.0); HEMOGLOBIN 12.5 g/dl (12.0-15.5); LYMPH # 0.9 10^3/uL (1.5-4.5); LYMPH % 17.5 % (24.0-44.0); MEAN CORPUSCULAR HEMOGLOBIN 31.3 pg (27.0-33.0); MEAN CORPUSCULAR HGB CONC 32.1 g/dl (32.0-36.5); MEAN CORPUSCULAR VOLUME 97.7 fl (80.0-96.0); MONO # 0.4 10^3/uL (0.0-0.8); MONO % 7.6 % (0.0-5.0); NEUTROPHILS # 3.5 10^3/uL (1.8-7.7); NEUTROPHILS % 72.7 % (36.0-66.0); PLATELET COUNT, AUTOMATED 196 10^3/uL (150-450); RED BLOOD COUNT 3.99 10^6/uL (4.00-5.40); WHITE BLOOD COUNT 4.9 10^3/uL (4.0-10.0)
[2018-10-29 13:50] LABS: ALBUMIN 3.9 GM/DL (3.2-5.2); BILIRUBIN,TOTAL 0.4 MG/DL (0.2-1.0); C REACTIVE PROTEIN QUANTITATIV 1.24 MG/DL (0.00-0.30); CALCIUM LEVEL 8.9 MG/DL (8.8-10.2); CREATININE FOR GFR 1.02 MG/DL (0.55-1.30); GLOMERULAR FILTRATION RATE 57.7 (>45); POTASSIUM SERUM 4.6 MEQ/L (3.5-5.1); TOTAL PROTEIN 6.9 GM/DL (6.4-8.2)
[2018-10-29 14:23] LABS: ERYTHROCYTE SEDIMENTATION RATE 31 mm/hr (0-30)
== END ==
LOC: M SFHCPLAZ 10:52
PROVIDERS: ATTEND Internal Medicine Rheumatology
DX: M06.09 Rheumatoid arthritis without rheumatoid factor, multiple sites (principal)
CPT/HCPCS: 36415; 80053; 85025; 85652; 86140; G0463

== ENCOUNTER → 2018-12-23 | Outpatient (CLI) | payer MEDICARE ==
--- NOTE | 2019-01-08 01:22 | ECWPNPC ---
PATIENT NAME: AMIE BRYANT : 1950 GENDER: FEMALE VISIT DATE: 12/23/2018 DISCHARGE DATE: 12/23/18 1017 VISIT LOCKED DATE TIME: PHYSICIAN: LEXY RUIZ RESOURCE: LEXY RUIZ REASON FOR APPOINTMENT 1. GEN PAIN/ MED MANAGEMENT HISTORY OF PRESENT ILLNESS HISTORY OF PRESENT ILLNESS: HERE FOR F/U OF CHRONIC GENERALIZED BACK PAIN ,FIBROMYALGIA AND CHRONIC FATIGUE SYNDROME.RATING PAIN VAS 4/10. PAIN INCREASES DAY PROGRESSES.DESCRIBES PAIN CONSTANT,ACHING AND BURNING.HAS BEEN HAVING AN INCREASE IN PAIN THAT SEEMS TO BE BETTER WITH ADJUSTMENT OF THYROID MEDICATION.SHE IS TRYING TO LOWER AMOUNT OF HYDROCODONE SHE IS TAKING DAILY. PAIN THE PATIENT DESCRIBES THE PAIN... THE PATIENT DESCRIBES THE PAIN... FALL RISK SCREENING: SCREENING : NO FALLS IN THE PAST YEAR. CURRENT MEDICATIONS TAKING NORVASC 10 MG TABLET 1 TABLET ORALLY ONCE A DAY TAKING LUBRICANTS EYE GTTS/OTC LIQUID 1-2 DROPS OU NEEDED TAKING LEVOTHYROXINE SODIUM 100 MCG TABLET 1 TABLET EVERY MORNING ON AN EMPTY STOMACH ORALLY ONCE A DAY TAKING MAXALT 10 MG TABLET 1 TABLET ORALLY NEEDED TAKING PREVACID 30 MG CAPSULE DELAYED RELEASE 1 CAPSULE BEFORE A MEAL ORALLY ONCE A DAY TAKING VITAMIN B COMPLEX OTC TABLET 1 TABLET ORALLY ONCE A DAY TAKING VITAMIN C 500 MG TABLET 1 TABLET ORALLY TWICE A DAY TAKING CALCIUM + D 630MG/500IU TABLET 1 TABLET ORALLY TWICE A DAY TAKING VITAMIN D 2000 UNIT TABLET 2 CAPSULE ORALLY ONCE A DAY TAKING MULTIVITAMINS OTC TABLET 1 TABLET ORALLY ONCE A DAY TAKING CLOBETASOL PROPIONATE 0.05 % OINTMENT 1 APPLICATION TO AFFECTED AREA EXTERNALLY NEEDED TAKING SERTRALINE HCL 100 MG TABLET 1 TABLET ORALLY DAILY TAKING HYDROXYZINE HCL 10 MG TABLET 1 TABLET ORALLY NEEDED FOR ITCHING TAKING SPIRONOLACTONE 25 MG TABLET 1 TABLET WITH FOOD ORALLY ONCE A DAY TAKING PROMETHAZINE HCL 25 MG TABLET 1 TAB(S) ORALLY EVERY 8 HOURS NEEDED TAKING TIZANIDINE HCL 2 MG TABLET 1 TABLET NEEDED ORALLY BID PRN PAIN/SPASM TAKING MELOXICAM 15 MG TABLET 1/2 TO 1 TABLET ORALLY ONCE A DAY TAKING NORCO 7.5-325 MG TABLET 1 TAB ORALLY EVERY 4 HOURS NEEDED MDD6 TAKING METHADONE HCL 10 MG TABLET 1 TABLET ORALLY EVERY 6 HRS. MDD= 4 CHRONIC PAIN TAKING METHOTREXATE 2.5 MG TABLET 5 TABLETS ORALLY ONCE A WEEK TAKING FOLIC ACID 1 MG TABLET 1 TABLET ORALLY ONCE A DAY TAKING FLONASE 1 SPRAY IN EACH NOSTRIL NASALLY ONCE A DAY NOT-TAKING PREDNISONE 5 MG TABLET 3 TABS DAILY X 3 DAYS, THEN 2 TAB DAILY X 3 DAYS, THEN 1 TAB DAILY X 3 DAYS ORALLY ONCE A DAY NOT-TAKING METRONIDAZOLE 0.75 % CREAM 1 APPLICATION TO AFFECTED AREA EXTERNALLY TWICE A DAY NOT-TAKING LIDODERM 5 % PATCH 1 PATCH TO INTACT SKIN REMOVE AFTER 12 HOURS EXTERNALLY ONCE A DAY NEEDED FOR SEVERE TENDER POINT PAIN MEDICATION LIST REVIEWED AND RECONCILED WITH THE PATIENT PAST MEDICAL HISTORY FIBROMYALGIA SEES DR ZHENG CHRONIC FATIGUE SYNDROME HX SHELLY'S DISEASE HYPERTENSION OSTEOARTHRITIS OSTEOPENIA LUTZ'S 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[place], ?LUPUS CARPAL TUNNEL SYNDROME INFLAMMATORY ARTHRITIS RHEUMATOID ARTHRITIS TENDONITIS LEFT ELBOW ALLERGIES ALTACE: FATIGUE - SIDE EFFECTS METOPROLOL SUCCINATE: MUSCLE PAIN ,SOB - SIDE EFFECTS MORPHINE SULFATE: PAIN,CONSTIPATION,DRY MOUTH,SOB - SIDE EFFECTS NEURONTIN: DOES NOT HELP PAIN, WEIGHT GAIN - SIDE EFFECTS NORTRIPTYLINE HCL: NAUSEA/VOMITING - SIDE EFFECTS NORVASC: HIVES,SWELLING IN ANKLES, FEET AND EYELIDS - ALLERGY PRUDOXIN: ARMS TURNED RED AND SWELLED UP,FATIGUE - ALLERGY ROZEREM: MUSCLE AND JOINT PAIN - SIDE EFFECTS SONATA: SEVERE ITCHING - ALLERGY TOPAMAX: MUSCLE AND JOINT PAIN,EXHAUSTION - SIDE EFFECTS TRAMADOL-ACETAMINOPHEN: HEADACHES, MOUTH SORES - SIDE EFFECTS TRAZODONE HCL: SEVERE MUSCLE PAIN - SIDE EFFECTS AMOXICILLIN: SEVERE ITCHING, HIVES - ALLERGY OXYCODONE: HIVES,GENERIC FORM - ALLERGY METHADONE: INCREASED PAIN - SIDE EFFECTS INDERAL: CONFUSION - SIDE EFFECTS METHYLPHENIDATE: HIVES,RASH,FACIAL SWELLING - ALLERGY LYRICA: STOPPED WORKING, SWELLING OF HANDS AND FEET, WEIGHT GAIN - SIDE EFFECTS AMBIEN: DIZZINESS - SIDE EFFECTS AVAPRO: ITCHING AND FACIAL SWELLING - ALLERGY BIAXIN: NAUSEA/VOMITING - SIDE EFFECTS BYSTOLIC: PAIN AND ELECTRIC CURRENT SENSATION IN LEGS AND FEET - SIDE EFFECTS CARDIZEM: ITCHING,RASH - ALLERGY CLONIDINE HCL: MUSCLE AND JOINT PAIN - SIDE EFFECTS COLCHICINE: AFTER A FEW DAYS CAUSED INTENSE PAIN - ALLERGY COREG: MUSCLE PAIN - SIDE EFFECTS DYNACIRC CR: MIGRAINES - SIDE EFFECTS EFFEXOR: SOB,EXHAUSTION/GENERIC FORM - SIDE EFFECTS ESTRATEST H.S.: ITCHING, RASH - ALLERGY HYDRALAZINE HCL: RASH, SWELLING LEFT SIDE OF NECK,SEVERE CONSTIPATION, PAIN, WEAK - ALLERGY HYDROCHLOROTHIAZIDE: RASH, ITCHING - ALLERGY KETOPROFEN: HIVES,ITCHING, FACIAL SWELLING - ALLERGY LEVOXYL: CONSTIPATION/UPSET STOMACH - SIDE EFFECTS SULFA (FOR ALLERGY USE ONLY): ITCHING,RASH - ALLERGY NASONEX: MIGRAINES, NASAL PASSAGES VERY SORE - SIDE EFFECTS ADVIL: ITCHING, FACIAL SWELLING - ALLERGY CARDURA: ITCHING, RASH, FACIAL SWELLING, FREQUENT URINATION - ALLERGY IBUPROFEN: ITCHING, FACIAL SWELLING - ALLERGY AZELASTINE HCL: FELT VERY ILL - SIDE EFFECTS ASMANEX 120 METERED DOSES: EXHAUSTED AND WEAK, DID NOT HELP BREATHING - SIDE EFFECTS BACLOFEN: INTENSEPAIN AFTER A COUPLE WEEKS - SIDE EFFECTS LISINOPRIL: ANAPHYLAXIS - ALLERGY TERAZOSIN HCL: EDEMA - SIDE EFFECTS SURGICAL HISTORY SHARIF/BSO 1997 TONSILLECTOMY CARPAL TUNNEL R LAPAROTOMY SEVERAL D & C'S COLONOSCOPY/ENDOSCOPY 01/2012 CARDIAC CATHETERIZATION RIGHT TOTAL KNEE 2016 FAMILY HISTORY FATHER: TYPE I DIABETES. OF KIDNEY FAILURE MOTHER: EMPHYSEMA, TOBACCO USE. SIBLINGS: BROTHER W/ TYPE I DIABETES. BROTHER WITH HYPERTENSION. NO BREAST, COLON OR OVARIAN CANCER IN FAMILY. DAUGHTER WITH FIBROMYALGIA HERNIATED DISCS RA ?. BOTH CHILDREN WITH HYPERTENSION. SON WITH SKIN PROBLEMS, GLUTEN INTOLERANCE. SOCIAL HISTORY GENERAL: TOBACCO USE ARE YOU A:NEVER SMOKER NEVER SMOKER ALCOHOL SCREENING DID YOU HAVE A DRINK CONTAINING ALCOHOL IN THE PAST YEAR?NO POINTS0 INTERPRETATIONNEGATIVE RECREATIONAL DRUG USE DRUG USE?NO CAFFEINE CAFFEINE USE?YES ONE CUP COFFEE DAILY HIV / HEP-C SCREENING HIV TEST OFFERED TO PATIENT:YES DATE OFFERED:01/25/2018 TEST ACCEPTED:NO HEP-C TEST OFFERED TO PATIENT:YES DATE OFFERED:01/25/2018 REASON:PATIENT DECLINED TEST ACCEPTED:NO REASON:PATIENT DECLINED BROCHURE PROVIDED TO PATIENTYES AMISH [id number] DRUZE LANGUAGE LANGUAGES SPOKEN:CANADIAN EDUCATION LEVEL OF EDUCATION:[employer] LEARNING BARRIERS / SPECIAL NEEDS CHANGE FROM LAST VISIT?NO BARRIERS TO LEARNING?NO HEARING IMPAIRED?NO VISION IMPAIRED?YES GLASSES FOR READING COGNITIVELY IMPAIRED?NO READINESS TO LEARN?YES LEARNING PREFERENCES?NO LEARNING CAPABILITIES PRESENT?YES EMOTIONAL BARRIERS?NO SPECIAL DEVICES?YES :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 DIET: REGULAR. EXERCISE: PHYSICAL THERAPY EXERCISES AT HOME FOR KNEE. MARITAL STATUS: . OTHERS AT HOME: MOTHER IN LAW, , GRANDSON. NEW PATIENT PAIN DIARY TODAY'S VISIT NOTES, FROM 0-10, WHAT LEVEL IS YOUR PAIN TODAY? 0. PAIN CLINIC PFS, CLERGY, PUBLIC HEALTH REFERRALS PFS REFERRAL NEEDED?NO CLERGY REFERRAL NEEDED?NO PUBLIC HEALTH REFERRAL NEEDED?NO HAS THE PATIENT BEEN EDUCATED REGARDING HIS/HER PLAN OF CARE?YES HAS THE PATIENT BEEN EDUCATED REGARDING PAIN, THE RISK FOR PAIN, THE IMPORTANCE OF EFFECTIVE PAIN MANAGEMENT, AND THE PAIN ASSESSMENT PROCESS?YES ADVANCE DIRECTIVE ADVANCE DIRECTIVE DISCUSSED WITH PATIENT:YES PT HAS HCP STEPHEN BRYANT [id number] REVIEWED 10/22/18 0821 LAS. HOSPITALIZATION/MAJOR DIAGNOSTIC PROCEDURE SURGERY REVIEW OF SYSTEMS REVIEWED BY: PROVIDER: LEXY JOHNSON . CONSTITUTIONAL: ANY CHANGE IN YOUR MEDICAL CONDITION? NO . CHILLS NO . FEVER NO . INFECTION: DO YOU HAVE NEW INFECTIONS? NO . DO YOU HAVE HISTORY OF MRSA? NO . MUSCULOSKELETAL: ANY NEW PATTERNS OF PAIN OR NUMBNESS? NO . GASTROENTEROLOGY: ANY NEW CHANGE IN BOWEL CONTROL? NO . GENITOURINARY: ANY NEW CHANGE IN BLADDER CONTROL? NO . IS THERE A CHANCE YOU COULD BE ? NO . HEMATOLOGY/LYMPH: DO YOU TAKE ANY BLOOD THINNERS? (FOR EXAMPLE- COUMADIN, PLAVIX, AGGRENOX, PLATEL, PRADAXA, OR XARELTO) NO . WHEN WAS YOUR LAST DOSE? DATE: TIME: . NEUROLOGY: HAVE YOU FALLEN IN THE PAST 12 MONTHS? NO . ANY NEW EXTREMITY NUMBNESS OR WEAKNESS? NO . CARDIOLOGY: DO YOU HAVE A PACEMAKER OR DEFIBRILLATOR? NO . RESPIRATORY: HAVE YOU BEEN SICK IN THE PAST WEEK? NO . FEVER NO . FLU LIKE SYMPTOMS? NO . COUGH NO . INTEGUMENTARY: DO YOU HAVE ANY RASHES OR OPEN SORES? NO . ALLERGIC/IMMUNO: ARE YOU ALLERGIC TO IV DYE? NO . ANY NEW ALLERGIES? NO . PSYCHIATRIC: DO YOU HAVE THOUGHTS OF HURTING YOURSELF OR SOMEONE ELSE? NO . ARE YOU ABUSED, NEGLECTED, OR IN AN UNSAFE ENVIRONMENT? NO . ENDOCRINOLOGY: ARE YOU DIABETIC? NO . OTHER: DO YOU NEED ANY PRESCRIPTIONS? NO . IF YES, PLEASE LIST: ____ . ANY NEW PROBLEMS WITH YOUR MEDICATIONS? NO . WHEN DID YOU LAST EAT? ____ . WHEN DID YOU LAST DRINK? ____ . WHAT DID YOU LAST DRINK? ____ . NAME OF PERSON DRIVING YOU HOME? ____ . DO YOU HAVE ANY OTHER QUESTIONS OR CONCERNS NO . VITAL SIGNS WT 176.2 LBS, HT 63 IN, BMI 31.21 INDEX, BP 170/60 MM HG, HR 87 /MIN, RR 18 /MIN, TEMP 96.2 F, OXYGEN SAT % 95%, NA INITIALS AW 0928, REVIEWED BY: EM. EXAMINATION GENERAL EXAMINATION: GENERAL APPEARANCE:AWAKE,ALERT ,PLEAASANT . PSYCHAFFECT NORMAL . LUNGS:LUNG THORNE ARE CLEAR TO AUSCULTATION BILATERALLY. GOOD MOVEMENT OF AIR . HEART:S1, S2 IN A REGULAR RATE AND RHYTHM. NO SIGNIFICANT MURMURS, RUBS OR GALLOPS NOTED . 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 MDD= 4 CHRONIC PAIN NOTES: ISTOP REGISTRY REVIEWED AND DEMONSTRATES COMPLLIANCE. (REF #[id number] ) BRINGS IN MEDICATIONS WHICH IS APPROPRIATE FOR WHAT WAS DISPENSED. RECENT URINE TOXICOLOGY REVIEWED. NO UNAUTHORIZED MEDICATIONS. NO ILLICIT SUBSTANCES AND PRESCRIBED MEDICATIONS WERE PRESENT. URINE TOX TODAY, RISKS AND BENEFITS OF NARCOTIC/OPIOD MEDICATIONS WERE REVIEWED WITH PATIENT - THIS INCLUDES BUT IS NOT LIMITED TO RISK OF DEPENDANCE/DEVELOPMENT OF ADDICTION, MOOD DISTURBANCE AND DEPRESSION, OSTEOPOROSIS, HORMONAL AND LABIDAL CHANGES, RESPIRATORY DEPRESSION AND . PATIENT IS ADVISED NOT TO DRIVE OR DRINK ALCOHOL WHILE ON THESE MEDICATIONS, [facility] NARCOTIC AGREEMENT WAS REVIEWED/UPDATED AND SIGNED TODAY BY THE PATIENT. SEE ATTACHED DOCUMENT FOR FULL DETAILS; SPECIFIC ISSUES WERE REVIEWED: 1) KEEP PAIN MEDS IN THEIR ORIGINAL BOTTLES AND ANY WEEKLY PLANNERS ARE TO BE BROUGHT TO THE PAIN CENTER AT EVERY VISIT. 2) THE PATIENT IS NOT TO INCREASE DOSING OR TIMING OF THEIR PAIN MEDICATION WITHOUT SPECIFIC DIRECTION OF THEIR PAIN CENTERPROVIDER (NOT ER OR OTHER PROVIDERS). 3) ALL PAIN MEDS ARE TO BE KEPT SECURED, IN A LOCKED BOX. 4) NO PAIN MEDS ARE TO BE SHARED WITH ANY OTHER PERSON FOR ANY REASON. 5) NO PAIN MEDS MAY BE TAKEN FROM ANY FRIENDS OR RELATIVES FOR ANY REASON 6) NO MEDS OR SUBSTANCES WHICH ARE NOT LEGAL ARE TO BE USED- NO MARIJUANA, NO COCAINE, AMPHETAMINES, HEROIN, OR OTHERS ARE EVER TO BE USED. 7)URINE TESTING IS DONE TO ACCOUNT FOR MEDS AND SUBSTANCES BEING TAKEN AND WILL BE DONE RANDOMLY.. PROCEDURE CODES FA211 ESTABILISHED PATIENT [facility] CHARGE DISPOSITION & COMMUNICATION FOLLOW UP 3 MONTHS ELECTRONICALLY SIGNED BY ALEX DAMON ON 01/06/2019 AT 04:26 PM EDT DISCLAIMER : THIS IS A VISIT SUMMARY EXTRACTED FROM THE [employer] CHART. IT IS NOT A COPY OF THE [employer] PROGRESS NOTE. BYRON
== END ==
LOC: M PAIN 09:30
PROVIDERS: ATTEND Nurse Practitioner Family
DX: M06.09 Rheumatoid arthritis without rheumatoid factor, multiple sites (principal); M79.7 Fibromyalgia; I10 Essential (primary) hypertension; M85.00 Fibrous dysplasia (monostotic), unspecified site; Z79.899 Other long term (current) drug therapy; Z88.1 Allergy status to other antibiotic agents; Z88.2 Allergy status to sulfonamides; Z88.5 Allergy status to narcotic agent; Z88.6 Allergy status to analgesic agent; Z88.8 Allergy status to other drugs, medicaments and biological substances; Z86.79 Personal history of other diseases of the circulatory system; Z96.651 Presence of right artificial knee joint

== ENCOUNTER → 2019-01-28 | Outpatient (CLI) | payer MEDICARE ==
--- NOTE | 2019-01-28 12:19 | REPMRS ---
Patient History The patient states she had a clinical breast exam in 01/2019. No known family history of cancer. Took estrogen for 18 years. Digital Woman Screen Mammo: January 28, 2019 - Exam #: [id number] Bilateral CC and MLO view(s) were taken. Technologist: Yasemin Nagel, Technologist Prior study comparison: January 25, 2018, digital woman screen mammo performed at [facility]. January 10, 2017, digital woman screen mammo performed at [facility]. December 10, 2015, digital woman screen mammo performed at [facility]. FINDINGS: There are scattered fibroglandular densities. There is a moderate amount of residual fibroglandular tissue which is fairly symmetric. There is no interval development of dominant mass, architectural distortion, or clustered microcalcification typical of malignancy. There has been no change in the appearance of the mammogram from the prior studies. 3-D tomosynthesis shows no additional findings. Assessment: BI-RADS/ACR category 1 mammogram. Negative Mammogram. Recommendation Routine screening mammogram of both breasts in 1 year (for women over age 40). This patient's Lifetime Breast Cancer RIsk is estimated at 5.5 %. This mammogram was interpreted with the aid of an FDA-approved computer-aided dectection system. Electronically Signed By: Serge Alfaro MD 01/28/19 4220
== END ==
LOC: M WHC 10:04
PROVIDERS: ATTEND Nurse Practitioner Family
DX: Z12.31 Encounter for screening mammogram for malignant neoplasm of breast (principal); Z92.23 Personal history of estrogen therapy
CPT/HCPCS: 77063; 77067; G0463

== ENCOUNTER → 2019-02-12 | Outpatient (CLI) | payer MEDICARE ==
--- NOTE | 2019-02-14 14:30 | DEXA ---
AP SPINE L1 - L4 0.983 -1.7 -0.1 LT FEMUR TOTAL 0.659 -2.8 -1.5 LT NECK 0.723 -2.3 -0.7 RT FEMUR TOTAL 0.614 -3.1 -1.8 RT NECK 0.709 -2.4 -0.8 TOTAL BODY TOTAL OTHER COMMENTS: There is low bone density of the spine and hips. The decreased density of the spine does represent a significant change. The decreased density of the left hip does represent a significant change. The decreased density of the right hip does represent a significant change. The density of the spine has decreased 11.2% since the initial exam on 11/29/2010. The spine density has decreased 7.4% since the most recent exam on 12/09/2014. The density of the left hip has decreased 24.7% since the initial exam on 11/29/2010. The density of the left hip has decreased 14.5% since the most recent exam on 12/09/2014. The density of the right hip has decreased 30.4% since the initial exam on 11/29/2010. The density of the right hip has decreased 23.4% since the most recent exam on 12/09/2014. FOLLOW-UP: Recommendation for the next bone density exam: 2 years. BYRON
== END ==
LOC: M WHC 08:50
PROVIDERS: ATTEND Nurse Practitioner Family
DX: M85.89 Other specified disorders of bone density and structure, multiple sites (principal)

== ENCOUNTER → 2019-02-28 | Outpatient (REF) | payer MEDICARE ==
[2019-02-28 12:04] LABS: EOS # 0.2 10^3/uL (0.0-0.50); EOS % 3.1 % (0.0-3.0); HEMATOCRIT 40.3 % (36.0-47.0); HEMOGLOBIN 13.2 g/dl (12.0-15.5); LYMPH % 18.3 % (24.0-44.0); MEAN CORPUSCULAR HGB CONC 32.8 g/dl (32.0-36.5); MEAN CORPUSCULAR VOLUME 97.8 fl (80.0-96.0); MONO # 0.5 10^3/uL (0.0-0.8); MONO % 9.7 % (0.0-5.0); NEUTROPHILS # 3.7 10^3/uL (1.8-7.7); NEUTROPHILS % 68.5 % (36.0-66.0); PLATELET COUNT, AUTOMATED 198 10^3/uL (150-450); RED BLOOD COUNT 4.12 10^6/uL (4.00-5.40); WHITE BLOOD COUNT 5.5 10^3/uL (4.0-10.0)
[2019-02-28 12:44] LABS: ALBUMIN 4.1 GM/DL (3.2-5.2); BILIRUBIN,TOTAL 0.4 MG/DL (0.2-1.0); C REACTIVE PROTEIN QUANTITATIV 0.85 MG/DL (0.00-0.30); CALCIUM LEVEL 9.4 MG/DL (8.8-10.2); CREATININE FOR GFR 0.99 MG/DL (0.55-1.30); GLOMERULAR FILTRATION RATE 59.7 (>45); TOTAL PROTEIN 7.2 GM/DL (6.4-8.2)
[2019-02-28 14:17] LABS: ERYTHROCYTE SEDIMENTATION RATE 23 mm/hr (0-30)
== END ==
LOC: M SFHCPLAZ 10:16
PROVIDERS: ATTEND Internal Medicine Rheumatology
DX: M06.09 Rheumatoid arthritis without rheumatoid factor, multiple sites (principal)

== ENCOUNTER → 2019-03-24 | Outpatient (CLI) | payer MEDICARE ==
--- NOTE | 2019-04-09 02:00 | ECWPNPC ---
PATIENT NAME: AMIE BRYANT : 1950 GENDER: FEMALE VISIT DATE: 03/24/2019 DISCHARGE DATE: 03/24/19921 VISIT LOCKED DATE TIME: PHYSICIAN: LEXY RUIZ RESOURCE: LEXY RUIZ REASON FOR APPOINTMENT 1. GEN PAIN/ MED MANAGEMENT HISTORY OF PRESENT ILLNESS HISTORY OF PRESENT ILLNESS: HERE FOR F/U OF CHRONIC GENERALIZED BACK PAIN ,FIBROMYALGIA AND CHRONIC FATIGUE SYNDROME.COMPLAINING OF INCREASE IN HAND PAIN LATELY.SHE HAS RHEUMATOID ARTHRITIS.RATING PAIN VAS 4/10. PAIN INCREASES DAY PROGRESSES.DESCRIBES PAIN CONSTANT,ACHING AND BURNING.HAS BEEN HAVING AN INCREASE IN PAIN THAT SEEMS TO BE BETTER WITH ADJUSTMENT OF THYROID MEDICATION.SHE IS TRYING TO LOWER AMOUNT OF HYDROCODONE SHE IS TAKING DAILY. PAIN THE PATIENT DESCRIBES THE PAIN... THE PATIENT DESCRIBES THE PAIN... THE PATIENT DESCRIBES THE PAIN... FALL RISK SCREENING: SCREENING :NO FALLS REPORTED IN THE LAST YEAR CURRENT MEDICATIONS TAKING NORVASC 10 MG TABLET 1 TABLET ORALLY ONCE A DAY TAKING LUBRICANTS EYE GTTS/OTC LIQUID 1-2 DROPS OU NEEDED TAKING LEVOTHYROXINE SODIUM 100 MCG TABLET 1 TABLET EVERY MORNING ON AN EMPTY STOMACH ORALLY ONCE A DAY TAKING MAXALT 10 MG TABLET 1 TABLET ORALLY NEEDED TAKING PREVACID 30 MG CAPSULE DELAYED RELEASE 1 CAPSULE BEFORE A MEAL ORALLY ONCE A DAY TAKING VITAMIN B COMPLEX OTC TABLET 1 TABLET ORALLY ONCE A DAY TAKING VITAMIN C 500 MG TABLET 1 TABLET ORALLY TWICE A DAY TAKING CALCIUM + D 630MG/500IU TABLET 1 TABLET ORALLY TWICE A DAY TAKING VITAMIN D 2000 UNIT TABLET 2 CAPSULE ORALLY ONCE A DAY TAKING MULTIVITAMINS OTC TABLET 1 TABLET ORALLY ONCE A DAY TAKING CLOBETASOL PROPIONATE 0.05 % OINTMENT 1 APPLICATION TO AFFECTED AREA EXTERNALLY NEEDED TAKING SERTRALINE HCL 100 MG TABLET 1 TABLET ORALLY DAILY TAKING HYDROXYZINE HCL 10 MG TABLET 1 TABLET ORALLY NEEDED FOR ITCHING TAKING SPIRONOLACTONE 25 MG TABLET 1 TABLET WITH FOOD ORALLY ONCE A DAY TAKING PROMETHAZINE HCL 25 MG TABLET 1 TAB(S) ORALLY EVERY 8 HOURS NEEDED TAKING TIZANIDINE HCL 2 MG TABLET 1 TABLET NEEDED ORALLY BID PRN PAIN/SPASM TAKING MELOXICAM 15 MG TABLET 1 TABLET ORALLY ONCE A DAY TAKING FOSAMAX 70 MG TABLET 1 TABLET ORALLY WEEKLY, NOTES: HAS NOT STARTED YET TAKING METHOTREXATE 2.5 MG TABLET 5 TABLETS ORALLY ONCE A WEEK TAKING FOLIC ACID 1 MG TABLET 1 TABLET ORALLY ONCE A DAY TAKING NORCO 7.5-325 MG TABLET 1 TAB ORALLY EVERY 4 HOURS NEEDED MDD6 TAKING METHADONE HCL 10 MG TABLET 1 TABLET ORALLY EVERY 6 HRS. MDD= 4 CHRONIC PAIN NOT-TAKING FLONASE 1 SPRAY IN EACH NOSTRIL NASALLY ONCE A DAY NOT-TAKING PREDNISONE 5 MG TABLET 3 TABS DAILY X 3 DAYS, THEN 2 TAB DAILY X 3 DAYS, THEN 1 TAB DAILY X 3 DAYS ORALLY ONCE A DAY NOT-TAKING METRONIDAZOLE 0.75 % CREAM 1 APPLICATION TO AFFECTED AREA EXTERNALLY TWICE A DAY NOT-TAKING LIDODERM 5 % PATCH 1 PATCH TO INTACT SKIN REMOVE AFTER 12 HOURS EXTERNALLY ONCE A DAY NEEDED FOR SEVERE TENDER POINT PAIN MEDICATION LIST REVIEWED AND RECONCILED WITH THE PATIENT PAST MEDICAL HISTORY FIBROMYALGIA SEES DR LAZO CHRONIC FATIGUE SYNDROME HX SHELLY'S DISEASE HYPERTENSION OSTEOARTHRITIS OSTEOPENIA LUTZ'S 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[place], ?LUPUS CARPAL TUNNEL SYNDROME INFLAMMATORY ARTHRITIS RHEUMATOID ARTHRITIS TENDONITIS LEFT ELBOW OSTEOPOROSIS ALLERGIES ALTACE: FATIGUE - SIDE EFFECTS METOPROLOL SUCCINATE: MUSCLE PAIN ,SOB - SIDE EFFECTS MORPHINE SULFATE: PAIN,CONSTIPATION,DRY MOUTH,SOB - SIDE EFFECTS NEURONTIN: DOES NOT HELP PAIN, WEIGHT GAIN - SIDE EFFECTS NORTRIPTYLINE HCL: NAUSEA/VOMITING - SIDE EFFECTS NORVASC: HIVES,SWELLING IN ANKLES, FEET AND EYELIDS - ALLERGY PRUDOXIN: ARMS TURNED RED AND SWELLED UP,FATIGUE - ALLERGY ROZEREM: MUSCLE AND JOINT PAIN - SIDE EFFECTS SONATA: SEVERE ITCHING - ALLERGY TOPAMAX: MUSCLE AND JOINT PAIN,EXHAUSTION - SIDE EFFECTS TRAMADOL-ACETAMINOPHEN: HEADACHES, MOUTH SORES - SIDE EFFECTS TRAZODONE HCL: SEVERE MUSCLE PAIN - SIDE EFFECTS AMOXICILLIN: SEVERE ITCHING, HIVES - ALLERGY OXYCODONE: HIVES,GENERIC FORM - ALLERGY METHADONE: INCREASED PAIN - SIDE EFFECTS INDERAL: CONFUSION - SIDE EFFECTS METHYLPHENIDATE: HIVES,RASH,FACIAL SWELLING - ALLERGY LYRICA: STOPPED WORKING, SWELLING OF HANDS AND FEET, WEIGHT GAIN - SIDE EFFECTS AMBIEN: DIZZINESS - SIDE EFFECTS AVAPRO: ITCHING AND FACIAL SWELLING - ALLERGY BIAXIN: NAUSEA/VOMITING - SIDE EFFECTS BYSTOLIC: PAIN AND ELECTRIC CURRENT SENSATION IN LEGS AND FEET - SIDE EFFECTS CARDIZEM: ITCHING,RASH - ALLERGY CLONIDINE HCL: MUSCLE AND JOINT PAIN - SIDE EFFECTS COLCHICINE: AFTER A FEW DAYS CAUSED INTENSE PAIN - ALLERGY COREG: MUSCLE PAIN - SIDE EFFECTS DYNACIRC CR: MIGRAINES - SIDE EFFECTS EFFEXOR: SOB,EXHAUSTION/GENERIC FORM - SIDE EFFECTS ESTRATEST H.S.: ITCHING, RASH - ALLERGY HYDRALAZINE HCL: RASH, SWELLING LEFT SIDE OF NECK,SEVERE CONSTIPATION, PAIN, WEAK - ALLERGY HYDROCHLOROTHIAZIDE: RASH, ITCHING - ALLERGY KETOPROFEN: HIVES,ITCHING, FACIAL SWELLING - ALLERGY LEVOXYL: CONSTIPATION/UPSET STOMACH - SIDE EFFECTS SULFA (FOR ALLERGY USE ONLY): ITCHING,RASH - ALLERGY NASONEX: MIGRAINES, NASAL PASSAGES VERY SORE - SIDE EFFECTS ADVIL: ITCHING, FACIAL SWELLING - ALLERGY CARDURA: ITCHING, RASH, FACIAL SWELLING, FREQUENT URINATION - ALLERGY IBUPROFEN: ITCHING, FACIAL SWELLING - ALLERGY AZELASTINE HCL: FELT VERY ILL - SIDE EFFECTS ASMANEX 120 METERED DOSES: EXHAUSTED AND WEAK, DID NOT HELP BREATHING - SIDE EFFECTS BACLOFEN: INTENSEPAIN AFTER A COUPLE WEEKS - SIDE EFFECTS LISINOPRIL: ANAPHYLAXIS - ALLERGY TERAZOSIN HCL: EDEMA - SIDE EFFECTS SURGICAL HISTORY SHARIF/BSO 1997 TONSILLECTOMY CARPAL TUNNEL R LAPAROTOMY SEVERAL D & C'S COLONOSCOPY/ENDOSCOPY 01/2012 CARDIAC CATHETERIZATION RIGHT TOTAL KNEE 2016 FAMILY HISTORY FATHER: TYPE I DIABETES. OF KIDNEY FAILURE MOTHER: EMPHYSEMA, TOBACCO USE. SIBLINGS: BROTHER W/ TYPE I DIABETES. BROTHER WITH HYPERTENSION. SON(S): DIAGNOSED WITH HYPERTENSION NO BREAST, COLON OR OVARIAN CANCER IN FAMILY. \N\NDAUGHTER WITH FIBROMYALGIA HERNIATED DISCS RA ?. \N\NBOTH CHILDREN WITH HYPERTENSION. \N\NSON WITH SKIN PROBLEMS, GLUTEN INTOLERANCE. SOCIAL HISTORY GENERAL: TOBACCO USE ARE YOU A:NEVER SMOKER NEVER SMOKER HIV / HEP-C SCREENING HIV TEST OFFERED TO PATIENT:YES DATE OFFERED:01/25/2018 TEST ACCEPTED:NO REASON:PATIENT DECLINED BROCHURE PROVIDED TO PATIENTYES HEP-C TEST OFFERED TO PATIENT:YES DATE OFFERED:01/25/2018 TEST ACCEPTED:NO REASON:PATIENT DECLINED OTHERS AT HOME: MOTHER IN LAW, . EDUCATION LEVEL OF EDUCATION:[employer] DIET: REGULAR. LANGUAGE LANGUAGES SPOKEN:[place] NEW PATIENT PAIN DIARY TODAY'S VISIT NOTES, FROM 0-10, WHAT LEVEL IS YOUR PAIN TODAY? 0. BMI CARE GOAL FOLLOW-UP ABOVE NORMAL BMI FOLLOW-UPLIFESTYLE EDUCATION REGARDING DIET RECREATIONAL DRUG USE DRUG USE?NO EXERCISE: CAREGIVER AT HOME FOR MOTHER IN LAW. LEARNING BARRIERS / SPECIAL NEEDS CHANGE FROM LAST VISIT?NO BARRIERS TO LEARNING?NO HEARING IMPAIRED?YES TINITUS VISION IMPAIRED?YES GLASSES FOR READING COGNITIVELY IMPAIRED?NO READINESS TO LEARN?YES LEARNING PREFERENCES?NO LEARNING CAPABILITIES PRESENT?YES EMOTIONAL BARRIERS?NO SPECIAL DEVICES?NO ANTIQUE COLLECTOR NEEDED?NO PAIN CLINIC PFS, CLERGY, PUBLIC HEALTH REFERRALS PFS REFERRAL NEEDED?NO CLERGY REFERRAL NEEDED?NO PUBLIC HEALTH REFERRAL NEEDED?NO HAS THE PATIENT BEEN EDUCATED REGARDING HIS/HER PLAN OF CARE?YES HAS THE PATIENT BEEN EDUCATED REGARDING PAIN, THE RISK FOR PAIN, THE IMPORTANCE OF EFFECTIVE PAIN MANAGEMENT, AND THE PAIN ASSESSMENT PROCESS?YES LATEX QUESTIONNAIRE LATEX ALLERGY : HAVE YOU EVER DEVELOPED ANY TYPE OF REACTION AFTER HANDLING LATEX PRODUCTS SUCH RUBBER GLOVES, CONDOMS, DIAPHRAGMS, BALLOONS, SOCKS, OR UNDERWEAR?NO LATEX ALLERGY : HAVE YOU EVER DEVELOPED ANY TYPE OF REACTION DURING OR AFTER DENTAL APPOINTMENT, VAGINAL/RECTAL EXAMINATION, SURGICAL PROCEDURE, OR ANY OTHER EXPOSURE?NO LATEX RISK : HAVE YOU EVER HAD ANY DIFFICULTY BREATHING OR HIVES AFTER EATING OR HANDLING ANY FRUITS, OR VEGETABLES; SUCH KIWI, BANANAS, STONE FRUITS, OR CHESTNUTSNO LATEX RISK : DO YOU HAVE A PREVIOUS PERSONAL HISTORY OF MORE THAN NINE SURGERIES, SPINA BIFIDA, OR REPEATED CATHERTIZATIONS? NO LATEX RISK : ARE YOU FREQUENTLY EXPOSED TO LATEX PRODUCTS IN YOUR OCCUPATION?NO DATE ASKED : 02/26/2019 CAFFEINE CAFFEINE USE?YES ONE CUP COFFEE DAILY ADVANCE DIRECTIVE ADVANCE DIRECTIVE DISCUSSED WITH PATIENT:YES PT HAS HCP STEPHEN BRYANT [phone] TAOIST [id number] CHEONDOISM MARITAL STATUS: . ALCOHOL SCREENING DID YOU HAVE A DRINK CONTAINING ALCOHOL IN THE PAST YEAR?NO POINTS0 INTERPRETATIONNEGATIVE OCCUPATION: DISABLED, RETIRED. REVIEWED 10/22/1834 LASREVIEWED WITH PT 03/24/19 0904 BV. HOSPITALIZATION/MAJOR DIAGNOSTIC PROCEDURE SURGERY REVIEW OF SYSTEMS REVIEWED BY: PROVIDER: LEXY JOHNSON . CONSTITUTIONAL: ANY CHANGE IN YOUR MEDICAL CONDITION? YES, SCHEDULED WITH DR. PEREYRA FOR CONSULT FOR CARPAL TUNNEL SURGERY . CHILLS NO . FEVER NO . INFECTION: DO YOU HAVE NEW INFECTIONS? NO . DO YOU HAVE HISTORY OF MRSA? NO . MUSCULOSKELETAL: ANY NEW PATTERNS OF PAIN OR NUMBNESS? NO . GASTROENTEROLOGY: ANY NEW CHANGE IN BOWEL CONTROL? NO . GENITOURINARY: ANY NEW CHANGE IN BLADDER CONTROL? NO . IS THERE A CHANCE YOU COULD BE ? NO . HEMATOLOGY/LYMPH: DO YOU TAKE ANY BLOOD THINNERS? (FOR EXAMPLE- COUMADIN, PLAVIX, AGGRENOX, PLATEL, PRADAXA, OR XARELTO) NO . WHEN WAS YOUR LAST DOSE? DATE: TIME: . NEUROLOGY: HAVE YOU FALLEN IN THE PAST 12 MONTHS? NO . ANY NEW EXTREMITY NUMBNESS OR WEAKNESS? NO . CARDIOLOGY: DO YOU HAVE A PACEMAKER OR DEFIBRILLATOR? NO . RESPIRATORY: HAVE YOU BEEN SICK IN THE PAST WEEK? NO . FEVER NO . FLU LIKE SYMPTOMS? NO . COUGH NO . INTEGUMENTARY: DO YOU HAVE ANY RASHES OR OPEN SORES? NO . ALLERGIC/IMMUNO: ARE YOU ALLERGIC TO IV DYE? NO . ANY NEW ALLERGIES? NO . PSYCHIATRIC: DO YOU HAVE THOUGHTS OF HURTING YOURSELF OR SOMEONE ELSE? NO . ARE YOU ABUSED, NEGLECTED, OR IN AN UNSAFE ENVIRONMENT? NO . ENDOCRINOLOGY: ARE YOU DIABETIC? NO . OTHER: DO YOU NEED ANY PRESCRIPTIONS? NO . IF YES, PLEASE LIST: ____ . ANY NEW PROBLEMS WITH YOUR MEDICATIONS? NO . WHEN DID YOU LAST EAT? ____ . WHEN DID YOU LAST DRINK? ____ . WHAT DID YOU LAST DRINK? ____ . NAME OF PERSON DRIVING YOU HOME? ____ . DO YOU HAVE ANY OTHER QUESTIONS OR CONCERNS NO . VITAL SIGNS WT 175 LBS, HT 63 IN, BMI 31.00 INDEX, BP 160/72 MM HG, HR 77 /MIN, RR 18 /MIN, TEMP 98.1 F, OXYGEN SAT % 97%, NA INITIALS AW 0900, REVIEWED BY: :BV. EXAMINATION GENERAL EXAMINATION: GENERAL APPEARANCE:AWAKE,ALERT ,PLEAASANT . PSYCHAFFECT NORMAL . LUNGS:LUNG THORNE ARE CLEAR TO AUSCULTATION BILATERALLY. GOOD MOVEMENT OF AIR . HEART:S1, S2 IN A REGULAR RATE AND RHYTHM. NO SIGNIFICANT MURMURS, RUBS OR GALLOPS NOTED . ASSESSMENTS RHEUMATOID ARTHRITIS OF MULTIPLE SITES WITH NEGATIVE RHEUMATOID FACTOR - M06.09 (PRIMARY) TREATMENT RHEUMATOID ARTHRITIS OF MULTIPLE SITES WITH NEGATIVE RHEUMATOID FACTOR REFILL TIZANIDINE HCL TABLET, 2 MG, 1 TABLET NEEDED, ORALLY, BID PRN PAIN/SPASM, 30 DAYS, 60, REFILLS 2 REFILL METHADONE HCL TABLET, 10 MG, 1 TABLET, ORALLY, EVERY 6 HRS. MDD= 4 CHRONIC PAIN, 30 DAYS, 120, REFILLS 0 NOTES: ISTOP REGISTRY REVIEWED AND DEMONSTRATES COMPLLIANCE. BRINGS IN MEDICATIONS WHICH IS APPROPRIATE FOR WHAT WAS DISPENSED. RECENT URINE TOXICOLOGY REVIEWED. NO UNAUTHORIZED MEDICATIONS. NO ILLICIT SUBSTANCES AND PRESCRIBED MEDICATIONS WERE PRESENT. , RISKS AND BENEFITS OF NARCOTIC/OPIOD MEDICATIONS WERE REVIEWED WITH PATIENT - THIS INCLUDES BUT IS NOT LIMITED TO RISK OF DEPENDANCE/DEVELOPMENT OF ADDICTION, MOOD DISTURBANCE AND DEPRESSION, OSTEOPOROSIS, HORMONAL AND LABIDAL CHANGES, RESPIRATORY DEPRESSION AND . PATIENT IS ADVISED NOT TO DRIVE OR DRINK ALCOHOL WHILE ON THESE MEDICATIONS. PROCEDURE CODES FA211 ESTABILISHED PATIENT [facility] CHARGE DISPOSITION & COMMUNICATION FOLLOW UP 3 MONTHS ELECTRONICALLY SIGNED BY ALEX DAMON ON 04/08/2019 AT 09:15 AM EDT DISCLAIMER : THIS IS A VISIT SUMMARY EXTRACTED FROM THE [employer] CHART. IT IS NOT A COPY OF THE [employer] PROGRESS NOTE. YEISOND
== END ==
LOC: M PAIN 08:45
PROVIDERS: ATTEND Nurse Practitioner Family
DX: M06.09 Rheumatoid arthritis without rheumatoid factor, multiple sites (principal); G89.29 Other chronic pain; M79.7 Fibromyalgia; I10 Essential (primary) hypertension; M19.90 Unspecified osteoarthritis, unspecified site; M85.88 Other specified disorders of bone density and structure, other site; M81.0 Age-related osteoporosis without current pathological fracture; Z96.651 Presence of right artificial knee joint; Z88.1 Allergy status to other antibiotic agents; Z88.2 Allergy status to sulfonamides; Z88.5 Allergy status to narcotic agent; Z88.8 Allergy status to other drugs, medicaments and biological substances; Z79.891 Long term (current) use of opiate analgesic; Z79.899 Other long term (current) drug therapy

== ENCOUNTER → 2019-05-28 | Outpatient (CLI) | payer MEDICARE ==
[~2019-05-28] MED LIST changes: -ARTI99.0 OU; +ARTIDRO2 OU
[2019-05-28 11:26] LABS: EOS # 0.1 10^3/uL (0.0-0.50); EOS % 1.2 % (0.0-3.0); HEMATOCRIT 37.8 % (36.0-47.0); HEMOGLOBIN 12.5 g/dl (12.0-15.5); LYMPH # 0.8 10^3/uL (1.5-4.5); LYMPH % 13.9 % (24.0-44.0); MEAN CORPUSCULAR HEMOGLOBIN 31.7 pg (27.0-33.0); MEAN CORPUSCULAR HGB CONC 33.1 g/dl (32.0-36.5); MEAN CORPUSCULAR VOLUME 95.9 fl (80.0-96.0); MONO # 0.5 10^3/uL (0.0-0.8); MONO % 8.9 % (0.0-5.0); NEUTROPHILS # 4.3 10^3/uL (1.8-7.7); NEUTROPHILS % 75.5 % (36.0-66.0); PLATELET COUNT, AUTOMATED 216 10^3/uL (150-450); RED BLOOD COUNT 3.94 10^6/uL (4.00-5.40); WHITE BLOOD COUNT 5.8 10^3/uL (4.0-10.0)
[2019-05-28 11:50] LABS: ERYTHROCYTE SEDIMENTATION RATE 39 mm/hr (0-30)
[2019-05-28 12:01] LABS: ALBUMIN 3.8 GM/DL (3.2-5.2); ALT/SGPT 24 U/L (12-78); BILIRUBIN,TOTAL 0.4 MG/DL (0.2-1.0); BLOOD UREA NITROGEN 14 MG/DL (7-18); C REACTIVE PROTEIN QUANTITATIV 1.05 MG/DL (0.00-0.30); CALCIUM LEVEL 9.5 MG/DL (8.8-10.2); CARBON DIOXIDE LEVEL 32 MEQ/L (21-32); CHLORIDE LEVEL 104 MEQ/L (98-107); GLOMERULAR FILTRATION RATE > 60.0 (>45); GLUCOSE, FASTING 82 MG/DL (70-100); POTASSIUM SERUM 4.9 MEQ/L (3.5-5.1); SODIUM LEVEL 140 MEQ/L (136-145); TOTAL PROTEIN 6.7 GM/DL (6.4-8.2)
== END ==
LOC: M LAB 10:38
PROVIDERS: ATTEND Internal Medicine Rheumatology
DX: M06.09 Rheumatoid arthritis without rheumatoid factor, multiple sites (principal)
CPT/HCPCS: 36415; 80053; 85025; 85652; 86140; G0463

== ENCOUNTER → 2019-06-24 | Outpatient (CLI) | payer MEDICARE ==
--- NOTE | 2019-06-26 01:50 | ECWPNPC ---
PATIENT NAME: AMIE BRYANT : 1950 GENDER: FEMALE VISIT DATE: 06/24/2019 DISCHARGE DATE: 06/24/19954 VISIT LOCKED DATE TIME: PHYSICIAN: LEXY RUIZ RESOURCE: LEXY RUIZ REASON FOR APPOINTMENT 1. GEN PAIN/MED MGMT HISTORY OF PRESENT ILLNESS HISTORY OF PRESENT ILLNESS: HERE FOR F/U OF CHRONIC GENERALIZED BACK PAIN ,FIBROMYALGIA AND CHRONIC FATIGUE SYNDROME.COMPLAINING OF INCREASE IN HAND PAIN LATELY.SHE HAS RHEUMATOID ARTHRITIS.RATING PAIN VAS 4/10. PAIN INCREASES DAY PROGRESSES.DESCRIBES PAIN CONSTANT,ACHING AND BURNING. PAIN THE PATIENT DESCRIBES THE PAIN... THE PATIENT DESCRIBES THE PAIN... THE PATIENT DESCRIBES THE PAIN... THE PATIENT DESCRIBES THE PAIN... FALL RISK SCREENING: SCREENING :NO FALLS REPORTED IN THE LAST YEAR CURRENT MEDICATIONS TAKING NORVASC 10 MG TABLET 1 TABLET ORALLY ONCE A DAY TAKING LUBRICANTS EYE GTTS/OTC LIQUID 1-2 DROPS OU NEEDED TAKING LEVOTHYROXINE SODIUM 100 MCG TABLET 1 TABLET EVERY MORNING ON AN EMPTY STOMACH ORALLY ONCE A DAY TAKING MAXALT 10 MG TABLET 1 TABLET ORALLY NEEDED TAKING PREVACID 30 MG CAPSULE DELAYED RELEASE 1 CAPSULE BEFORE A MEAL ORALLY ONCE A DAY TAKING VITAMIN B COMPLEX OTC TABLET 1 TABLET ORALLY ONCE A DAY TAKING VITAMIN C 500 MG TABLET 1 TABLET ORALLY TWICE A DAY TAKING CALCIUM + D 630MG/500IU TABLET 1 TABLET ORALLY TWICE A DAY TAKING VITAMIN D 2000 UNIT TABLET 2 CAPSULE ORALLY ONCE A DAY TAKING MULTIVITAMINS OTC TABLET 1 TABLET ORALLY ONCE A DAY TAKING CLOBETASOL PROPIONATE 0.05 % OINTMENT 1 APPLICATION TO AFFECTED AREA EXTERNALLY NEEDED TAKING SERTRALINE HCL 100 MG TABLET 1 TABLET ORALLY DAILY TAKING HYDROXYZINE HCL 10 MG TABLET 1 TABLET ORALLY NEEDED FOR ITCHING TAKING SPIRONOLACTONE 25 MG TABLET 1 TABLET WITH FOOD ORALLY ONCE A DAY TAKING PROMETHAZINE HCL 25 MG TABLET 1 TAB(S) ORALLY EVERY 8 HOURS NEEDED TAKING MELOXICAM 15 MG TABLET 1 TABLET ORALLY ONCE A DAY TAKING FOSAMAX 70 MG TABLET 1 TABLET ORALLY WEEKLY, NOTES: HAS NOT STARTED YET TAKING TIZANIDINE HCL 2 MG TABLET 1 TABLET NEEDED ORALLY BID PRN PAIN/SPASM TAKING FOLIC ACID 1 MG TABLET 1 TABLET ORALLY ONCE A DAY TAKING METHOTREXATE 2.5 MG TABLET 5 TABLETS ORALLY ONCE A WEEK TAKING NORCO 7.5-325 MG TABLET 1 TAB ORALLY EVERY 4 HOURS NEEDED MDD6 TAKING METHADONE HCL 10 MG TABLET 1 TABLET ORALLY EVERY 6 HRS. MDD= 4 CHRONIC PAIN NOT-TAKING FLONASE 1 SPRAY IN EACH NOSTRIL NASALLY ONCE A DAY NOT-TAKING PREDNISONE 5 MG TABLET 3 TABS DAILY X 3 DAYS, THEN 2 TAB DAILY X 3 DAYS, THEN 1 TAB DAILY X 3 DAYS ORALLY ONCE A DAY NOT-TAKING METRONIDAZOLE 0.75 % CREAM 1 APPLICATION TO AFFECTED AREA EXTERNALLY TWICE A DAY NOT-TAKING LIDODERM 5 % PATCH 1 PATCH TO INTACT SKIN REMOVE AFTER 12 HOURS EXTERNALLY ONCE A DAY NEEDED FOR SEVERE TENDER POINT PAIN MEDICATION LIST REVIEWED AND RECONCILED WITH THE PATIENT PAST MEDICAL HISTORY FIBROMYALGIA SEES DR LAZO CHRONIC FATIGUE SYNDROME HX SHELLY'S DISEASE HYPERTENSION OSTEOARTHRITIS OSTEOPENIA LUTZ'S 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[place], ?LUPUS CARPAL TUNNEL SYNDROME INFLAMMATORY ARTHRITIS RHEUMATOID ARTHRITIS TENDONITIS LEFT ELBOW OSTEOPOROSIS ALLERGIES ALTACE: FATIGUE - SIDE EFFECTS METOPROLOL SUCCINATE: MUSCLE PAIN ,SOB - SIDE EFFECTS MORPHINE SULFATE: PAIN,CONSTIPATION,DRY MOUTH,SOB - SIDE EFFECTS NEURONTIN: DOES NOT HELP PAIN, WEIGHT GAIN - SIDE EFFECTS NORTRIPTYLINE HCL: NAUSEA/VOMITING - SIDE EFFECTS NORVASC: HIVES,SWELLING IN ANKLES, FEET AND EYELIDS - ALLERGY PRUDOXIN: ARMS TURNED RED AND SWELLED UP,FATIGUE - ALLERGY ROZEREM: MUSCLE AND JOINT PAIN - SIDE EFFECTS SONATA: SEVERE ITCHING - ALLERGY TOPAMAX: MUSCLE AND JOINT PAIN,EXHAUSTION - SIDE EFFECTS TRAMADOL-ACETAMINOPHEN: HEADACHES, MOUTH SORES - SIDE EFFECTS TRAZODONE HCL: SEVERE MUSCLE PAIN - SIDE EFFECTS AMOXICILLIN: SEVERE ITCHING, HIVES - ALLERGY OXYCODONE: HIVES,GENERIC FORM - ALLERGY METHADONE: INCREASED PAIN - SIDE EFFECTS INDERAL: CONFUSION - SIDE EFFECTS METHYLPHENIDATE: HIVES,RASH,FACIAL SWELLING - ALLERGY LYRICA: STOPPED WORKING, SWELLING OF HANDS AND FEET, WEIGHT GAIN - SIDE EFFECTS AMBIEN: DIZZINESS - SIDE EFFECTS AVAPRO: ITCHING AND FACIAL SWELLING - ALLERGY BIAXIN: NAUSEA/VOMITING - SIDE EFFECTS BYSTOLIC: PAIN AND ELECTRIC CURRENT SENSATION IN LEGS AND FEET - SIDE EFFECTS CARDIZEM: ITCHING,RASH - ALLERGY CLONIDINE HCL: MUSCLE AND JOINT PAIN - SIDE EFFECTS COLCHICINE: AFTER A FEW DAYS CAUSED INTENSE PAIN - ALLERGY COREG: MUSCLE PAIN - SIDE EFFECTS DYNACIRC CR: MIGRAINES - SIDE EFFECTS EFFEXOR: SOB,EXHAUSTION/GENERIC FORM - SIDE EFFECTS ESTRATEST H.S.: ITCHING, RASH - ALLERGY HYDRALAZINE HCL: RASH, SWELLING LEFT SIDE OF NECK,SEVERE CONSTIPATION, PAIN, WEAK - ALLERGY HYDROCHLOROTHIAZIDE: RASH, ITCHING - ALLERGY KETOPROFEN: HIVES,ITCHING, FACIAL SWELLING - ALLERGY LEVOXYL: CONSTIPATION/UPSET STOMACH - SIDE EFFECTS SULFA (FOR ALLERGY USE ONLY): ITCHING,RASH - ALLERGY NASONEX: MIGRAINES, NASAL PASSAGES VERY SORE - SIDE EFFECTS ADVIL: ITCHING, FACIAL SWELLING - ALLERGY CARDURA: ITCHING, RASH, FACIAL SWELLING, FREQUENT URINATION - ALLERGY IBUPROFEN: ITCHING, FACIAL SWELLING - ALLERGY AZELASTINE HCL: FELT VERY ILL - SIDE EFFECTS ASMANEX 120 METERED DOSES: EXHAUSTED AND WEAK, DID NOT HELP BREATHING - SIDE EFFECTS BACLOFEN: INTENSEPAIN AFTER A COUPLE WEEKS - SIDE EFFECTS LISINOPRIL: ANAPHYLAXIS - ALLERGY TERAZOSIN HCL: EDEMA - SIDE EFFECTS SURGICAL HISTORY SHARIF/BSO 1997 TONSILLECTOMY CARPAL TUNNEL R LAPAROTOMY SEVERAL D & C'S COLONOSCOPY/ENDOSCOPY 01/2012 CARDIAC CATHETERIZATION RIGHT TOTAL KNEE 2016 FAMILY HISTORY FATHER: TYPE I DIABETES. OF KIDNEY FAILURE MOTHER: EMPHYSEMA, TOBACCO USE. SIBLINGS: BROTHER W/ TYPE I DIABETES. BROTHER WITH HYPERTENSION. SON(S): DIAGNOSED WITH HYPERTENSION NO BREAST, COLON OR OVARIAN CANCER IN FAMILY. \N\NDAUGHTER WITH FIBROMYALGIA HERNIATED DISCS RA ?. \N\NBOTH CHILDREN WITH HYPERTENSION. \N\NSON WITH SKIN PROBLEMS, GLUTEN INTOLERANCE. SOCIAL HISTORY GENERAL: TOBACCO USE ARE YOU A:NEVER SMOKER NEVER SMOKER HIV / HEP-C SCREENING HIV TEST OFFERED TO PATIENT:YES DATE OFFERED:01/25/2018 TEST ACCEPTED:NO HEP-C TEST OFFERED TO PATIENT:YES DATE OFFERED:01/25/2018 REASON:PATIENT DECLINED TEST ACCEPTED:NO REASON:PATIENT DECLINED BROCHURE PROVIDED TO PATIENTYES OTHERS AT HOME: MOTHER IN LAW, . EDUCATION LEVEL OF EDUCATION:[employer] DIET: REGULAR. LANGUAGE LANGUAGES SPOKEN:[place]UES[place] NEW PATIENT PAIN DIARY TODAY'S VISIT NOTES, FROM 0-10, WHAT LEVEL IS YOUR PAIN TODAY? 0. BMI CARE GOAL FOLLOW-UP ABOVE NORMAL BMI FOLLOW-UPLIFESTYLE EDUCATION REGARDING DIET RECREATIONAL DRUG USE DRUG USE?NO EXERCISE: CAREGIVER AT HOME FOR MOTHER IN LAW. LEARNING BARRIERS / SPECIAL NEEDS CHANGE FROM LAST VISIT?NO BARRIERS TO LEARNING?NO HEARING IMPAIRED?YES TINITUS VISION IMPAIRED?YES GLASSES FOR READING COGNITIVELY IMPAIRED?NO READINESS TO LEARN?YES LEARNING PREFERENCES?NO LEARNING CAPABILITIES PRESENT?YES EMOTIONAL BARRIERS?NO SPECIAL DEVICES?NO SHAKE CUTTER NEEDED?NO PAIN CLINIC PFS, CLERGY, PUBLIC HEALTH REFERRALS PFS REFERRAL NEEDED?NO CLERGY REFERRAL NEEDED?NO PUBLIC HEALTH REFERRAL NEEDED?NO WAS THE PROVIDER NOTIFIED OF ANY PERTINENT INFO?YES HAS THE PATIENT BEEN EDUCATED REGARDING HIS/HER PLAN OF CARE?YES HAS THE PATIENT BEEN EDUCATED REGARDING PAIN, THE RISK FOR PAIN, THE IMPORTANCE OF EFFECTIVE PAIN MANAGEMENT, AND THE PAIN ASSESSMENT PROCESS?YES LATEX QUESTIONNAIRE LATEX ALLERGY : HAVE YOU EVER DEVELOPED ANY TYPE OF REACTION AFTER HANDLING LATEX PRODUCTS SUCH RUBBER GLOVES, CONDOMS, DIAPHRAGMS, BALLOONS, SOCKS, OR UNDERWEAR?NO LATEX ALLERGY : HAVE YOU EVER DEVELOPED ANY TYPE OF REACTION DURING OR AFTER DENTAL APPOINTMENT, VAGINAL/RECTAL EXAMINATION, SURGICAL PROCEDURE, OR ANY OTHER EXPOSURE?NO LATEX RISK : HAVE YOU EVER HAD ANY DIFFICULTY BREATHING OR HIVES AFTER EATING OR HANDLING ANY FRUITS, OR VEGETABLES; SUCH KIWI, BANANAS, STONE FRUITS, OR CHESTNUTSNO LATEX RISK : DO YOU HAVE A PREVIOUS PERSONAL HISTORY OF MORE THAN NINE SURGERIES, SPINA BIFIDA, OR REPEATED CATHERIZATIONS? NO LATEX RISK : ARE YOU FREQUENTLY EXPOSED TO LATEX PRODUCTS IN YOUR OCCUPATION?NO DATE ASKED : 06/24/2019 CAFFEINE CAFFEINE USE?YES ONE CUP COFFEE DAILY ADVANCE DIRECTIVE ADVANCE DIRECTIVE DISCUSSED WITH PATIENT:YES PT HAS HCP STEPHEN BRYANT [phone] MOSQUE [id number] MUSLIM MARITAL STATUS: . ALCOHOL SCREENING DID YOU HAVE A DRINK CONTAINING ALCOHOL IN THE PAST YEAR?NO POINTS0 INTERPRETATIONNEGATIVE OCCUPATION: DISABLED, RETIRED. REVIEWED 10/22/1834 LASREVIEWED WITH PT 03/24/19 0904 BV. HOSPITALIZATION/MAJOR DIAGNOSTIC PROCEDURE SURGERY REVIEW OF SYSTEMS REVIEWED BY: PROVIDER: LEXY JOHNSON . CONSTITUTIONAL: ANY CHANGE IN YOUR MEDICAL CONDITION? NO . CHILLS NO . FEVER NO . INFECTION: DO YOU HAVE NEW INFECTIONS? NO . DO YOU HAVE HISTORY OF MRSA? NO . MUSCULOSKELETAL: ANY NEW PATTERNS OF PAIN OR NUMBNESS? YES, WEATHER RELATED . GASTROENTEROLOGY: ANY NEW CHANGE IN BOWEL CONTROL? NO . GENITOURINARY: ANY NEW CHANGE IN BLADDER CONTROL? NO . IS THERE A CHANCE YOU COULD BE ? NO . HEMATOLOGY/LYMPH: DO YOU TAKE ANY BLOOD THINNERS? (FOR EXAMPLE- COUMADIN, PLAVIX, AGGRENOX, PLATEL, PRADAXA, OR XARELTO) NO . WHEN WAS YOUR LAST DOSE? DATE: TIME: . NEUROLOGY: HAVE YOU FALLEN IN THE PAST 12 MONTHS? NO . ANY NEW EXTREMITY NUMBNESS OR WEAKNESS? NO . CARDIOLOGY: DO YOU HAVE A PACEMAKER OR DEFIBRILLATOR? NO . RESPIRATORY: HAVE YOU BEEN SICK IN THE PAST WEEK? NO . FEVER NO . FLU LIKE SYMPTOMS? NO . COUGH NO . INTEGUMENTARY: DO YOU HAVE ANY RASHES OR OPEN SORES? NO . ALLERGIC/IMMUNO: ARE YOU ALLERGIC TO IV DYE? NO . ANY NEW ALLERGIES? NO . PSYCHIATRIC: DO YOU HAVE THOUGHTS OF HURTING YOURSELF OR SOMEONE ELSE? NO . ARE YOU ABUSED, NEGLECTED, OR IN AN UNSAFE ENVIRONMENT? NO . ENDOCRINOLOGY: ARE YOU DIABETIC? NO . OTHER: DO YOU NEED ANY PRESCRIPTIONS? NO . IF YES, PLEASE LIST: ____ . ANY NEW PROBLEMS WITH YOUR MEDICATIONS? NO . WHEN DID YOU LAST EAT? ____ . WHEN DID YOU LAST DRINK? ____ . WHAT DID YOU LAST DRINK? ____ . NAME OF PERSON DRIVING YOU HOME? ____ . DO YOU HAVE ANY OTHER QUESTIONS OR CONCERNS PT STATES THAT SHE IS SCHEDULE TO HAVE FLU SHOT IN JUN 2019 . VITAL SIGNS WT 172.4 LBS, HT 63 IN, BMI 30.54 INDEX, BP 181/79 MM HG, HR 85 /MIN, RR 18 /MIN, TEMP 99 F, OXYGEN SAT % 96%, SAFE IN ENV? (Y/N) Y, NA INITIALS MA 09:30, REVIEWED BY: JEANIE. EXAMINATION GENERAL EXAMINATION: GENERALAWAKE,ALERT ,PLEAASANT . PSYCHAFFECT NORMAL . LUNGS:LUNG THORNE ARE CLEAR TO AUSCULTATION BILATERALLY. GOOD MOVEMENT OF AIR . HEART:S1, S2 IN A REGULAR RATE AND RHYTHM. NO SIGNIFICANT MURMURS, RUBS OR GALLOPS NOTED . ASSESSMENTS RHEUMATOID ARTHRITIS OF MULTIPLE SITES WITH NEGATIVE RHEUMATOID FACTOR - M06.09 (PRIMARY) TREATMENT RHEUMATOID ARTHRITIS OF MULTIPLE SITES WITH NEGATIVE RHEUMATOID FACTOR CONTINUE TIZANIDINE HCL TABLET, 2 MG, 1 TABLET NEEDED, ORALLY, BID PRN PAIN/SPASM REFILL NORCO TABLET, 7.5-325 MG, 1 TO 1 1/2 TAB, ORALLY, Q6H PRN MDD6, 30 DAYS, 180, REFILLS 0 REFILL METHADONE HCL TABLET, 10 MG, 1 TABLET, ORALLY, EVERY 6 HRS. MDD= 4 CHRONIC PAIN, 30 DAYS, 120, REFILLS 0 NOTES: ISTOP REGISTRY REVIEWED AND DEMONSTRATES COMPLLIANCE. (REF # ) BRINGS IN MEDICATIONS WHICH IS APPROPRIATE FOR WHAT WAS DISPENSED. RECENT URINE TOXICOLOGY REVIEWED. NO UNAUTHORIZED MEDICATIONS. NO ILLICIT SUBSTANCES AND PRESCRIBED MEDICATIONS WERE PRESENT. , RISKS AND BENEFITS OF NARCOTIC/OPIOD MEDICATIONS WERE REVIEWED WITH PATIENT - THIS INCLUDES BUT IS NOT LIMITED TO RISK OF DEPENDANCE/DEVELOPMENT OF ADDICTION, MOOD DISTURBANCE AND DEPRESSION, OSTEOPOROSIS, HORMONAL AND LABIDAL CHANGES, RESPIRATORY DEPRESSION AND . PATIENT IS ADVISED NOT TO DRIVE OR DRINK ALCOHOL WHILE ON THESE MEDICATIONS. REFERRAL TO:[facility] [place] [facility] REASON:CHRONIC PAIN ASSOCIATED WITH INFLAMMATORY ARTHROPATHY/RHEUMATOID ARTHRITIS/FIBROMYALGIA PROCEDURE CODES FA211 ESTABILISHED PATIENT [facility] FACILITY CHARGE DISPOSITION & COMMUNICATION FOLLOW UP NO F/U (REASON: REFER TO [facility]) ELECTRONICALLY SIGNED BY ALEX DAMON ON 06/24/2019 AT 11:53 AM EDT DISCLAIMER : THIS IS A VISIT SUMMARY EXTRACTED FROM THE [employer] CHART. IT IS NOT A COPY OF THE [employer] PROGRESS NOTE. BYRON
== END ==
LOC: M PAIN 09:00
PROVIDERS: ATTEND Nurse Practitioner Family
DX: M06.09 Rheumatoid arthritis without rheumatoid factor, multiple sites (principal); M79.7 Fibromyalgia; I10 Essential (primary) hypertension; M85.88 Other specified disorders of bone density and structure, other site; M81.0 Age-related osteoporosis without current pathological fracture; Z96.651 Presence of right artificial knee joint; Z88.1 Allergy status to other antibiotic agents; Z88.2 Allergy status to sulfonamides; Z88.5 Allergy status to narcotic agent; Z88.6 Allergy status to analgesic agent; Z88.8 Allergy status to other drugs, medicaments and biological substances; Z79.891 Long term (current) use of opiate analgesic; Z79.899 Other long term (current) drug therapy

== ENCOUNTER → 2019-09-23 | Outpatient (REF) | payer MEDICARE | LOC: M SFHCRHEU 10:56 | PROVIDERS: ATTEND Internal Medicine Rheumatology | DX: M06.09 Rheumatoid arthritis without rheumatoid factor, multiple sites (principal); Z53.8 Procedure and treatment not carried out for other reasons ==

== ENCOUNTER → 2019-09-26 | Outpatient (CLI) | payer MEDICARE ==
[2019-09-26 16:23] LABS: EOS # 0.1 10^3/uL (0.0-0.5); EOS % 1.7 % (0.0-3.0); HEMATOCRIT 37.6 % (36.0-47.0); HEMOGLOBIN 12.3 g/dl (12.0-15.5); LYMPH # 0.9 10^3/uL (1.5-5.0); LYMPH % 13.5 % (24.0-44.0); MEAN CORPUSCULAR HEMOGLOBIN 31.6 pg (27.0-33.0); MEAN CORPUSCULAR HGB CONC 32.7 g/dl (32.0-36.5); MEAN CORPUSCULAR VOLUME 96.7 fl (80.0-96.0); MONO # 0.7 10^3/uL (0.0-0.8); MONO % 10.2 % (0.0-5.0); NEUTROPHILS # 5.1 10^3/uL (1.5-8.5); NEUTROPHILS % 74.2 % (36.0-66.0); PLATELET COUNT, AUTOMATED 227 10^3/uL (150-450); RED BLOOD COUNT 3.89 10^6/uL (4.00-5.40); WHITE BLOOD COUNT 6.9 10^3/uL (4.0-10.0)
[2019-09-26 16:54] LABS: ERYTHROCYTE SEDIMENTATION RATE 49 mm/hr (0-30)
[2019-09-26 16:55] LABS: ALBUMIN 3.7 GM/DL (3.2-5.2); ALT/SGPT 23 U/L (12-78); BILIRUBIN,TOTAL 0.3 MG/DL (0.2-1.0); BLOOD UREA NITROGEN 13 MG/DL (7-18); C REACTIVE PROTEIN QUANTITATIV 2.65 MG/DL (0.00-0.30); CALCIUM LEVEL 9.4 MG/DL (8.8-10.2); CARBON DIOXIDE LEVEL 33 MEQ/L (21-32); CHLORIDE LEVEL 100 MEQ/L (98-107); CREATININE FOR GFR 0.96 MG/DL (0.55-1.30); GLOMERULAR FILTRATION RATE > 60.0 (>45); GLUCOSE, FASTING 79 MG/DL (70-100); POTASSIUM SERUM 4.6 MEQ/L (3.5-5.1); SODIUM LEVEL 138 MEQ/L (136-145); TOTAL PROTEIN 6.6 GM/DL (6.4-8.2)
== END ==
LOC: M WUC 15:13
PROVIDERS: ATTEND Internal Medicine Rheumatology
DX: M06.09 Rheumatoid arthritis without rheumatoid factor, multiple sites (principal)

== ENCOUNTER → 2019-10-01 | Outpatient (CLI) | payer MEDICARE ==
[2019-10-01 13:18] LABS: APPEARANCE, URINE CLEAR (CLEAR); BACTERIA, URINE AUTO NEGATIVE (NEGATIVE); BILIRUBIN, URINE AUTO NEGATIVE (NEGATIVE); BLOOD, URINE BLOOD NEGATIVE (NEGATIVE); COLOR, URINE YELLOW (YELLOW); GLUCOSE, URINE (UA) AUTO NEGATIVE (NEGATIVE); KETONE, URINE AUTO NEGATIVE (NEGATIVE); LEUKOCYTE ESTERASE, URINE AUTO NEGATIVE (NEGATIVE); MUCUS, URINE SMALL (NEGATIVE); NITRITE, URINE AUTO NEGATIVE (NEGATIVE); PROTEIN, URINE AUTO NEGATIVE (NEGATIVE); RBC, URINE AUTO 3 /HPF (0-3); SPECIFIC GRAVITY URINE AUTO 1.019 (1.002-1.035); SQUAMOUS EPITHELIAL CELL UR AU 0 /HPF (0-6); UROBILINOGEN, URINE AUTO 0.2 mg/dL (0.0-2.0); WBC, URINE AUTO 1 /HPF (0-3)
[2019-10-01 13:43] LABS: URINE TOTAL PROTEIN 16.1 MG/DL (0-12)
[2019-10-01 13:45] LABS: TOTAL PROTEIN 7.3 GM/DL (6.4-8.2)
--- NOTE | 2019-10-01 16:53 | REP ---
HISTORY: Rheumatoid arthritis. COMPARISON: Today's exam compared to 08/20/2017. FINDINGS: The superior mediastinal structures are midline. The cardiac silhouette is unremarkable in size, shape and position. The diaphragmatic surfaces of the lungs are regular and the costophrenic angles are clear. The pulmonary león are clear. The imaged osseous structures are intact. IMPRESSION: There is no acute cardiopulmonary disease. No change from the prior exam. COMMENT: If clinical suspicion is high for rheumatoid nodules, then consider CT of the chest. Electronically Signed by Rafy Mauricio DO 10/01/2019 05:05 P
[2019-10-02 08:10] LABS: ALBUMIN 4.42 GM/DL (3.29-5.55); ALBUMIN % 60.6 % (55.8-66.1); ALPHA-1-GLOBULIN % 5.9 % (2.9-4.9); ALPHA-1-GLOBULINS 0.43 GM/DL (0.17-0.41); ALPHA-2-GLOBULINS 0.89 GM/DL (0.42-0.99); ALPHA-2-GLOBULINS % 12.2 % (7.1-11.8); BETA-1-GLOBULINS 0.42 GM/DL (0.28-0.60); BETA-1-GLOBULINS % 5.8 % (4.7-7.2); BETA-2-GLOBULINS 0.35 GM/DL (0.19-0.55); BETA-2-GLOBULINS % 4.8 % (3.2-6.5)
[2019-10-02 08:11] LABS: GAMMA GLOBULIN % 10.7 % (11.1-18.8); GAMMA GLOBULINS 0.78 GM/DL (0.65-1.58)
== END ==
LOC: M LAB 12:25
PROVIDERS: ATTEND Internal Medicine Rheumatology
DX: M06.9 Rheumatoid arthritis, unspecified (principal)

== ENCOUNTER → 2019-12-17 | Outpatient (CLI) | payer MEDICARE ==
[~2019-12-17] MED LIST changes: -ARTIDRO2 OU; +POLYOPD OU
[2019-12-17 16:02] LABS: EOS # 0.1 10^3/uL (0.0-0.5); HEMOGLOBIN 13.1 g/dl (12.0-15.5); LYMPH # 0.9 10^3/uL (1.5-5.0); LYMPH % 12.4 % (24.0-44.0); MEAN CORPUSCULAR HEMOGLOBIN 31.1 pg (27.0-33.0); MEAN CORPUSCULAR VOLUME 97.4 fl (80.0-96.0); MONO # 0.5 10^3/uL (0.0-0.8); NEUTROPHILS # 5.6 10^3/uL (1.5-8.5); NEUTROPHILS % 79.3 % (36.0-66.0); PLATELET COUNT, AUTOMATED 228 10^3/uL (150-450); RED BLOOD COUNT 4.21 10^6/uL (4.00-5.40)
[2019-12-17 16:20] LABS: ALBUMIN 4.2 GM/DL (3.2-5.2); BILIRUBIN,TOTAL 0.8 MG/DL (0.2-1.0); C REACTIVE PROTEIN QUANTITATIV 0.93 MG/DL (0.00-0.30); CALCIUM LEVEL 9.9 MG/DL (8.8-10.2); CREATININE FOR GFR 1.1 MG/DL (0.55-1.30); GLOMERULAR FILTRATION RATE 52.7 (>45); POTASSIUM SERUM 5.3 MEQ/L (3.5-5.1); TOTAL PROTEIN 7.1 GM/DL (6.4-8.2)
[2019-12-17 17:42] LABS: ERYTHROCYTE SEDIMENTATION RATE 24 mm/hr (0-30)
== END ==
LOC: M WUC 11:20
PROVIDERS: ATTEND Internal Medicine
DX: M06.09 Rheumatoid arthritis without rheumatoid factor, multiple sites (principal)

== ENCOUNTER → 2020-03-18 | Outpatient (CLI) | payer MEDICARE ==
[2020-03-18 16:35] LABS: EOS # 0.1 10^3/uL (0.0-0.5); EOS % 0.9 % (0.0-3.0); HEMATOCRIT 37.1 % (36.0-47.0); HEMOGLOBIN 12.2 g/dl (12.0-15.5); LYMPH # 0.6 10^3/uL (1.5-5.0); LYMPH % 4.8 % (24.0-44.0); MEAN CORPUSCULAR HEMOGLOBIN 32.8 pg (27.0-33.0); MEAN CORPUSCULAR HGB CONC 32.9 g/dl (32.0-36.5); MEAN CORPUSCULAR VOLUME 99.7 fl (80.0-96.0); MONO # 0.8 10^3/uL (0.0-0.8); MONO % 6.9 % (0.0-5.0); NEUTROPHILS % 86.8 % (36.0-66.0); PLATELET COUNT, AUTOMATED 225 10^3/uL (150-450); RED BLOOD COUNT 3.72 10^6/uL (4.00-5.40); WHITE BLOOD COUNT 11.6 10^3/uL (4.0-10.0)
[2020-03-18 16:58] LABS: ALBUMIN 3.6 GM/DL (3.2-5.2); BILIRUBIN,TOTAL 0.4 MG/DL (0.2-1.0); C REACTIVE PROTEIN QUANTITATIV 4.19 MG/DL (0.00-0.30); CALCIUM LEVEL 9.1 MG/DL (8.8-10.2); CREATININE FOR GFR 1.06 MG/DL (0.55-1.30); POTASSIUM SERUM 4.3 MEQ/L (3.5-5.1); TOTAL PROTEIN 6.5 GM/DL (6.4-8.2)
[2020-03-18 17:14] LABS: ERYTHROCYTE SEDIMENTATION RATE 43 mm/hr (0-30)
== END ==
LOC: M WUC 10:18
PROVIDERS: ATTEND Internal Medicine
DX: M06.09 Rheumatoid arthritis without rheumatoid factor, multiple sites (principal)

== ENCOUNTER → 2020-04-06 | Outpatient (CLI) | payer MEDICARE ==
--- NOTE | 2020-04-06 13:19 | REPMRS ---
Patient History The patient states she had a clinical breast exam in March 2020. No known family history of cancer. Took estrogen for 18 years. 3D TOMOSYNTHESIS WAS PERFORMED. [facility] lifetime risk for breast cancer is 5.2%. VOLPARA DENSITY B. Digital Woman Screen Mammo: April 06, 2020 - Exam #: [id number] Bilateral CC and MLO view(s) were taken. Technologist: Cecilia Hawkins, Technologist Prior study comparison: January 28, 2019, bilateral digital woman screen mammo performed at [facility]. January 25, 2018, digital woman screen mammo performed at [facility]. FINDINGS: There are scattered fibroglandular densities. There has been no change in the appearance of the mammogram from the prior studies. There is a mild amount of residual fibroglandular tissue which is fairly symmetric. There is no interval development of dominant mass, architectural distortion, or clustered microcalcification suggestive of malignancy. Assessment: BI-RADS/ACR category 1 mammogram. Negative Mammogram. Recommendation Routine screening mammogram in 1 year (for women over age 40). This mammogram was interpreted with the aid of an FDA-approved computer-aided dectection system. Electronically Signed By: Tha Springer MD 04/06/20 [id number]
== END ==
LOC: M WHC 11:23
PROVIDERS: ATTEND Nurse Practitioner Family
DX: Z01.419 Encounter for gynecological examination (general) (routine) without abnormal findings (principal); Z12.31 Encounter for screening mammogram for malignant neoplasm of breast; Z92.23 Personal history of estrogen therapy
CPT/HCPCS: 77063; 77067; G0101

== ENCOUNTER → 2020-06-29 | Outpatient (CLI) | payer MEDICARE ==
[2020-06-29 17:09] LABS: EOS % 0.1 % (0.0-3.0); HEMATOCRIT 43.4 % (36.0-47.0); HEMOGLOBIN 13.5 g/dl (12.0-15.5); LYMPH # 0.5 10^3/uL (1.5-5.0); LYMPH % 5.5 % (24.0-44.0); MEAN CORPUSCULAR HGB CONC 31.1 g/dl (32.0-36.5); MEAN CORPUSCULAR VOLUME 99.5 fl (80.0-96.0); MONO # 0.4 10^3/uL (0.0-0.8); MONO % 3.9 % (0.0-5.0); NEUTROPHILS # 8.1 10^3/uL (1.5-8.5); NEUTROPHILS % 90.1 % (36.0-66.0); PLATELET COUNT, AUTOMATED 217 10^3/uL (150-450); RED BLOOD COUNT 4.36 10^6/uL (4.00-5.40)
[2020-06-29 17:13] LABS: BILIRUBIN,TOTAL 0.4 MG/DL (0.2-1.0); C REACTIVE PROTEIN QUANTITATIV 0.59 MG/DL (0.00-0.30); CALCIUM LEVEL 9.5 MG/DL (8.8-10.2); CREATININE FOR GFR 1.12 MG/DL (0.55-1.30); GLOMERULAR FILTRATION RATE 51.5 (>45); POTASSIUM SERUM 4.9 MEQ/L (3.5-5.1); TOTAL PROTEIN 6.9 GM/DL (6.4-8.2)
[2020-06-29 17:53] LABS: ERYTHROCYTE SEDIMENTATION RATE 9 mm/hr (0-30)
== END ==
LOC: M WUC 11:57
PROVIDERS: ATTEND Internal Medicine
DX: M06.09 Rheumatoid arthritis without rheumatoid factor, multiple sites (principal)

== ENCOUNTER → 2020-10-10 | Outpatient (CLI) | payer MEDICARE ==
[2020-10-10 17:28] LABS: BASO % 0.1 % (0.0-1.0); EOS % 0.3 % (0.0-3.0); HEMATOCRIT 38.4 % (36.0-47.0); LYMPH # 0.6 10^3/uL (1.5-5.0); LYMPH % 7.9 % (24.0-44.0); MEAN CORPUSCULAR HEMOGLOBIN 31.6 pg (27.0-33.0); MEAN CORPUSCULAR HGB CONC 31.3 g/dl (32.0-36.5); MEAN CORPUSCULAR VOLUME 101.1 fl (80.0-96.0); MONO # 0.6 10^3/uL (0.0-0.8); MONO % 7.6 % (0.0-5.0); NEUTROPHILS # 6.2 10^3/uL (1.5-8.5); PLATELET COUNT, AUTOMATED 190 10^3/uL (150-450); WHITE BLOOD COUNT 7.5 10^3/uL (4.0-10.0)
[2020-10-10 17:47] LABS: ALBUMIN 3.9 GM/DL (3.2-5.2); ALT/SGPT 27 U/L (12-78); BILIRUBIN,TOTAL 0.3 MG/DL (0.2-1.0); BLOOD UREA NITROGEN 14 MG/DL (7-18); C REACTIVE PROTEIN QUANTITATIV 0.49 MG/DL (0.00-0.30); CALCIUM LEVEL 8.6 MG/DL (8.8-10.2); CARBON DIOXIDE LEVEL 33 MEQ/L (21-32); CHLORIDE LEVEL 103 MEQ/L (98-107); CREATININE FOR GFR 1.06 MG/DL (0.55-1.30); GLOMERULAR FILTRATION RATE 54.9 (>45); GLUCOSE, FASTING 95 MG/DL (70-100); POTASSIUM SERUM 4.4 MEQ/L (3.5-5.1); RHEUMATOID FACTOR QUANT < 10.0 IU/ML (<15.0); SODIUM LEVEL 139 MEQ/L (136-145); TOTAL PROTEIN 6.4 GM/DL (6.4-8.2)
[2020-10-10 17:50] LABS: ERYTHROCYTE SEDIMENTATION RATE 14 mm/hr (0-30)
== END ==
LOC: M WUC 11:38
PROVIDERS: ATTEND Internal Medicine
DX: M05.9 Rheumatoid arthritis with rheumatoid factor, unspecified (principal)

== ENCOUNTER → 2021-01-13 | Outpatient (CLI) | payer MEDICARE ==
[2021-01-13 18:23] LABS: EOS % 0.1 % (0.0-3.0); HEMATOCRIT 38.8 % (36.0-47.0); HEMOGLOBIN 12.3 g/dl (12.0-15.5); LYMPH # 0.5 10^3/uL (1.5-5.0); LYMPH % 5.1 % (24.0-44.0); MEAN CORPUSCULAR HEMOGLOBIN 31.5 pg (27.0-33.0); MEAN CORPUSCULAR HGB CONC 31.7 g/dl (32.0-36.5); MEAN CORPUSCULAR VOLUME 99.2 fl (80.0-96.0); MONO # 0.3 10^3/uL (0.0-0.8); MONO % 3.3 % (2.0-8.0); NEUTROPHILS # 8.5 10^3/uL (1.5-8.5); NEUTROPHILS % 91.1 % (36.0-66.0); PLATELET COUNT, AUTOMATED 209 10^3/uL (150-450); RED BLOOD COUNT 3.91 10^6/uL (4.00-5.40); WHITE BLOOD COUNT 9.3 10^3/uL (4.0-10.0)
[2021-01-13 18:26] LABS: ALBUMIN 3.8 GM/DL (3.2-5.2); BILIRUBIN,TOTAL 0.2 MG/DL (0.2-1.0); C REACTIVE PROTEIN QUANTITATIV 0.99 MG/DL (0.00-0.30); CALCIUM LEVEL 9.4 MG/DL (8.8-10.2); CREATININE FOR GFR 1.06 MG/DL (0.55-1.30); GLOMERULAR FILTRATION RATE 54.9 (>45); POTASSIUM SERUM 4.5 MEQ/L (3.5-5.1); TOTAL PROTEIN 6.5 GM/DL (6.4-8.2)
[2021-01-13 18:59] LABS: ERYTHROCYTE SEDIMENTATION RATE 15 mm/hr (0-30)
== END ==
LOC: M WUC 14:32
PROVIDERS: ATTEND Internal Medicine
DX: M06.09 Rheumatoid arthritis without rheumatoid factor, multiple sites (principal)

== ENCOUNTER → 2021-03-17 | Outpatient (CLI) | payer MEDICARE ==
--- NOTE | 2021-03-17 14:07 | REPPI ---
INDICATION: RR06.02 SHORTNESS OF BREATH COMPARISON: 10/01/2019 TECHNIQUE: PA and lateral. FINDINGS: The mediastinum and cardiac silhouette are normal. The lung león are clear and without acute consolidation, effusion, or pneumothorax. The skeletal structures are intact and normal. IMPRESSION: No acute cardiopulmonary process. <Electronically signed by Demar Sam > 03/17/21 [id number]
== END ==
LOC: M PLAIMG 13:47
PROVIDERS: ATTEND Internal Medicine Pulmonary Disease
DX: R06.02 Shortness of breath (principal)

== ENCOUNTER → 2021-04-07 | Outpatient (CLI) | payer MEDICARE ==
--- NOTE | 2021-04-07 11:50 | PFTRPT ---
Height: 62.50 Inches Weight: 190.00 Lbs BSA: 1.88 Diagnosis: R06.02 DATE: 04/07/2021 ORDERING PHYSICIAN: Yfn Erickson MD Pre and post bronchodilator studies have excellent technical quality. Forced vital capacity is mildly reduced. FEV1 is in proportion. Obstructive index is therefore normal. Expiratory limit of the flow-volume loop suggests some nonspecific flow rate limitation. No significant bronchodilator response is identified. Total lung capacity is normal. Residual volume is in proportion. Diffusing capacity is borderline. Hemoglobin is mildly reduced at 11.7. Airway resistance and conductance are normal. IMPRESSION: Nonspecific flow rate limitation with a mild anemia and concomitant mild reduction in diffusing capacity. Please correlate clinically. MTDD
== END ==
LOC: M CARPUL 11:07
PROVIDERS: ATTEND Internal Medicine Pulmonary Disease
DX: R06.02 Shortness of breath (principal)

== ENCOUNTER → 2021-04-12 | Outpatient (CLI) | payer MEDICARE ==
[~2021-04-12] MED LIST changes: +METHACHOLINE KIT (J7674) INH ONE
--- NOTE | 2021-04-12 11:48 | PFTRPT ---
Height: 62.50 Inches Weight: 190.00 Lbs BSA: 1.88 Diagnosis: R06.02 DATE: 04/12/2021 ORDERED BY: Yfn Erickson M.D. QUALITY: Study of excellent technical quality. PROCEDURE: Under protocol, methacholine was administered. At a dose of 2.5 mg or 13.875 CDUs, a 22% decline in the FEV1 was noted. PC of 1.82 is significant. Flow rates did return to baseline post bronchodilator administration. IMPRESSION: Positive methacholine challenge study. MTDD
== END ==
LOC: M CARPUL 10:55
PROVIDERS: ATTEND Internal Medicine Pulmonary Disease
DX: R06.02 Shortness of breath (principal)
CPT/HCPCS: 94070; 95070; J7674

== ENCOUNTER → 2021-04-27 | Outpatient (CLI) | payer MEDICARE ==
[~2021-04-27] MED LIST changes: -METHACHOLINE KIT (J7674) INH ONE
--- NOTE | 2021-04-27 12:41 | REP ---
INDICATION: RHEUMATOID ARTHRITIS. COMPARISON: 07/19/2018 TECHNIQUE: Four views bilateral FINDINGS: Right hand: Asymmetric intra digital joint space narrowing is noted status quo. No prominent marginal osteophytosis, marginal erosions, or worsened periarticular osteopenia has developed. Stable marginal osteophyte formation is seen involving the D IP joint of the 2nd digit. There is no acute fracture, dislocation, or subluxation. Left hand: There is stable appearing asymmetric intra digital joint space narrowing without intra development of prominent marginal osteophytosis, marginal erosions, or worsening periarticular osteopenia. There is no acute fracture, dislocation, or subluxation. IMPRESSION: Stable appearing bilateral degenerative changes as described above. <Electronically signed by Rafy Mauricio > 04/27/21 [id number]
--- NOTE | 2021-04-27 13:09 | REP ---
INDICATION: RHEUMATOID ARTHRITIS. COMPARISON: None. TECHNIQUE: Four views bilateral FINDINGS: The bones are demineralized. Rather symmetric appearing intra digital joint space narrowing is seen bilaterally. There are bilateral plantar calcaneal heel spurs left greater than right. There is no acute fracture or destructive osseous lesion seen on either side. IMPRESSION: Chronic changes as described above. <Electronically signed by Rafy Mauricio > 04/27/21 [id number]
[2021-04-27 16:51] LABS: BASO % 0.1 % (0.0-1.0); EOS # 0.1 10^3/uL (0.0-0.5); EOS % 0.8 % (0.0-3.0); HEMATOCRIT 38.8 % (36.0-47.0); HEMOGLOBIN 11.9 g/dl (12.0-15.5); LYMPH # 0.6 10^3/uL (1.5-5.0); LYMPH % 6.7 % (24.0-44.0); MEAN CORPUSCULAR HEMOGLOBIN 30.7 pg (27.0-33.0); MEAN CORPUSCULAR HGB CONC 30.7 g/dl (32.0-36.5); MONO # 0.7 10^3/uL (0.0-0.8); MONO % 7.6 % (2.0-8.0); NEUTROPHILS # 7.7 10^3/uL (1.5-8.5); NEUTROPHILS % 84.1 % (36.0-66.0); PLATELET COUNT, AUTOMATED 231 10^3/uL (150-450); RED BLOOD COUNT 3.88 10^6/uL (4.00-5.40); WHITE BLOOD COUNT 9.1 10^3/uL (4.0-10.0)
[2021-04-27 16:57] LABS: ALBUMIN 3.8 GM/DL (3.2-5.2); BILIRUBIN,TOTAL 0.4 MG/DL (0.2-1.0); C REACTIVE PROTEIN QUANTITATIV 1.58 MG/DL (0.00-0.30); CALCIUM LEVEL 9.1 MG/DL (8.8-10.2); CREATININE FOR GFR 0.99 MG/DL (0.55-1.30); GLOMERULAR FILTRATION RATE 59.4 (>45); POTASSIUM SERUM 4.2 MEQ/L (3.5-5.1); TOTAL PROTEIN 6.5 GM/DL (6.4-8.2)
[2021-04-27 20:31] LABS: ERYTHROCYTE SEDIMENTATION RATE 21 mm/hr (0-30)
== END ==
LOC: M WUC 10:41
PROVIDERS: ATTEND Internal Medicine Rheumatology
DX: M06.09 Rheumatoid arthritis without rheumatoid factor, multiple sites (principal); H04.123 Dry eye syndrome of bilateral lacrimal glands

== ENCOUNTER → 2021-07-20 | Outpatient (CLI) | payer MEDICARE ==
[~2021-07-20] MED LIST changes: +METH-1177 PO; -METH10TA2 PO
--- NOTE | 2021-07-20 13:05 | REPMRS ---
Patient History The patient states she had a clinical breast exam in July 2021. No known family history of cancer. Took estrogen for 18 years. Patient states no breast complaints today. Patient has signed MRS History Sheet. Digital Woman Screen Mammo: July 20, 2021 - Exam #: [id number] Bilateral CC and MLO view(s) were taken. Technologist: Yasemin Nagel, Technologist Prior study comparison: April 06, 2020, bilateral digital woman screen mammo performed at [facility]. January 28, 2019, bilateral digital woman screen mammo performed at [facility]. January 25, 2018, digital woman screen mammo performed at [facility]. FINDINGS: There are scattered fibroglandular densities. There has been no change in the appearance of the mammogram from the prior studies. There is a mild amount of scattered fibroglandular density which is fairly symmetric. There is no interval development of dominant mass, architectural distortion, or grouped microcalcification suggestive of malignancy. 3-D tomosynthesis shows no additional findings. Assessment: BI-RADS/ACR category 1 mammogram. Negative Mammogram. Recommendation Routine screening mammogram of both breasts in 1 year (for women over age 40). This patient's [facility] Lifetime Breast Cancer Risk is estimated at 4.6 %. This mammogram was interpreted with the aid of an FDA-approved computer-aided dectection system. Electronically Signed By: Serge Alfaro MD 07/20/21 [id number]
== END ==
LOC: M WHC 11:20
PROVIDERS: ATTEND Nurse Practitioner Women's Health
DX: Z12.31 Encounter for screening mammogram for malignant neoplasm of breast (principal); Z92.23 Personal history of estrogen therapy
CPT/HCPCS: 77063; 77067; G0463

== ENCOUNTER → 2021-07-29 | Outpatient (CLI) | payer MEDICARE ==
--- NOTE | 2021-07-29 15:12 | REP ---
INDICATION: PAIN/ STAPH INFECTION COMPARISON: 07/19/2018 TECHNIQUE: AP, lateral, bilateral oblique and sunrise views. FINDINGS: Moderate tricompartmental osteoarthritic degenerative changes are appreciated and slightly progressive from prior examination. Findings again include increased sclerosis to the tibial plateau along with primarily medial and patellofemoral joint space narrowing and associated osteophyte formation as well as mild cortical irregularity and very subtle early spurring at the lateral compartment. No acute fracture or dislocation. No effusion. IMPRESSION: Moderate osteoarthritic degenerative changes mildly progressive from prior examination. <Electronically signed by Demar Sam > 07/29/21 [id number]
== END ==
LOC: M WUC 14:43
PROVIDERS: ATTEND Physician Assistant
DX: M00.062 Staphylococcal arthritis, left knee (principal)

== ENCOUNTER → 2021-08-23 | Outpatient (CLI) | payer MEDICARE ==
[2021-08-23 13:28] LABS: HEMATOCRIT 39.5 % (36.0-47.0); HEMOGLOBIN 12.3 g/dl (12.0-15.5); MEAN CORPUSCULAR HEMOGLOBIN 30.4 pg (27.0-33.0); MEAN CORPUSCULAR HGB CONC 31.1 g/dl (32.0-36.5); MEAN CORPUSCULAR VOLUME 97.8 fl (80.0-96.0); PLATELET COUNT, AUTOMATED 243 10^3/uL (150-450); RED BLOOD COUNT 4.04 10^6/uL (4.00-5.40); WHITE BLOOD COUNT 9.1 10^3/uL (4.0-10.0)
[2021-08-23 14:32] LABS: ERYTHROCYTE SEDIMENTATION RATE 37 mm/hr (0-30)
== END ==
LOC: M WUC 11:36
PROVIDERS: ATTEND Physician Assistant
DX: M70.61 Trochanteric bursitis, right hip (principal)

== ENCOUNTER → 2021-09-07 | Outpatient (CLI) | payer MEDICARE ==
[2021-09-07 16:18] LABS: EOS # 0.1 10^3/uL (0.0-0.5); EOS % 0.6 % (0.0-3.0); HEMATOCRIT 41.1 % (36.0-47.0); HEMOGLOBIN 12.5 g/dl (12.0-15.5); LYMPH # 0.6 10^3/uL (1.5-5.0); LYMPH % 6.9 % (24.0-44.0); MEAN CORPUSCULAR HEMOGLOBIN 29.8 pg (27.0-33.0); MEAN CORPUSCULAR HGB CONC 30.4 g/dl (32.0-36.5); MEAN CORPUSCULAR VOLUME 97.9 fl (80.0-96.0); MONO # 0.5 10^3/uL (0.0-0.8); MONO % 6.1 % (2.0-8.0); NEUTROPHILS # 7.6 10^3/uL (1.5-8.5); NEUTROPHILS % 85.8 % (36.0-66.0); PLATELET COUNT, AUTOMATED 215 10^3/uL (150-450); WHITE BLOOD COUNT 8.8 10^3/uL (4.0-10.0)
[2021-09-07 16:52] LABS: ALBUMIN 3.7 GM/DL (3.2-5.2); ALT/SGPT 29 U/L (12-78); BILIRUBIN,TOTAL 0.4 MG/DL (0.2-1.0); BLOOD UREA NITROGEN 14 MG/DL (7-18); C REACTIVE PROTEIN QUANTITATIV 1.47 MG/DL (0.00-0.30); CALCIUM LEVEL 9.6 MG/DL (8.8-10.2); CARBON DIOXIDE LEVEL 32 MEQ/L (21-32); CHLORIDE LEVEL 105 MEQ/L (98-107); CREATININE FOR GFR 0.95 MG/DL (0.55-1.30); GLOMERULAR FILTRATION RATE > 60.0 (>45); GLUCOSE, FASTING 86 MG/DL (70-100); POTASSIUM SERUM 4.9 MEQ/L (3.5-5.1); SODIUM LEVEL 141 MEQ/L (136-145); TOTAL PROTEIN 6.8 GM/DL (6.4-8.2)
[2021-09-07 19:49] LABS: ERYTHROCYTE SEDIMENTATION RATE 22 mm/hr (0-30)
== END ==
LOC: M WUC 10:57
PROVIDERS: ATTEND Internal Medicine Rheumatology
DX: M06.09 Rheumatoid arthritis without rheumatoid factor, multiple sites (principal)

== ENCOUNTER → 2021-09-22 | Outpatient (CLI) | payer MEDICARE ==
--- NOTE | 2021-09-22 13:13 | REP ---
INDICATION: LESION OF SCIATIC NERVE RT LOWER LIMB. COMPARISON: Left knee 07/29/2021. Bilateral knees 07/19/2018. TECHNIQUE/RADIOTRACER AND DOSE: Following the intravenous administration of 22 mCi technetium 99 M MDP, patient's knees are imaged in multiple projections in the flow phase, blood pool phase and delayed phase. FINDINGS: There is symmetrical blood flow bilaterally. There is minimal increased blood pooling in the region of the medial left knee joint and in the right lateral tibial plateau. There is mild increased delayed activity in the right lateral tibial plateau. There is mild increased delayed activity in a periarticular location at the medial left knee joint. Photopenic right knee prosthesis is noted. IMPRESSION: Increased uptake arm delayed images in the region of the medial left knee joint is most compatible with arthritic uptake. There is mild increased uptake on delayed images in the right lateral tibial plateau at the interface between prosthesis and naknek bone. <Electronically signed by Tha Springer > 09/22/21 [id number]
== END ==
LOC: M RAD 07:22
PROVIDERS: ATTEND Physician Assistant
DX: G57.01 Lesion of sciatic nerve, right lower limb (principal)
CPT/HCPCS: 78315; A9503

== ENCOUNTER → 2021-12-16 | Outpatient (CLI) | payer MEDICARE ==
[2021-12-16 16:16] LABS: EOS # 0.2 10^3/uL (0.0-0.5); EOS % 3.7 % (0.0-3.0); HEMATOCRIT 39.9 % (36.0-47.0); HEMOGLOBIN 12.6 g/dl (12.0-15.5); LYMPH # 0.6 10^3/uL (1.5-5.0); LYMPH % 13.5 % (24.0-44.0); MEAN CORPUSCULAR HEMOGLOBIN 31.2 pg (27.0-33.0); MEAN CORPUSCULAR HGB CONC 31.6 g/dl (32.0-36.5); MEAN CORPUSCULAR VOLUME 98.8 fl (80.0-96.0); MONO # 0.4 10^3/uL (0.0-0.8); MONO % 8.7 % (2.0-8.0); NEUTROPHILS # 3.4 10^3/uL (1.5-8.5); NEUTROPHILS % 73.9 % (36.0-66.0); PLATELET COUNT, AUTOMATED 213 10^3/uL (150-450); RED BLOOD COUNT 4.04 10^6/uL (4.00-5.40); WHITE BLOOD COUNT 4.6 10^3/uL (4.0-10.0)
[2021-12-16 18:04] LABS: ERYTHROCYTE SEDIMENTATION RATE 34 mm/hr (0-30)
== END ==
LOC: M WUC 11:29
PROVIDERS: ATTEND Orthopaedic Surgery
DX: M25.561 Pain in right knee (principal)

== ENCOUNTER → 2021-12-16 | Outpatient (CLI) | payer MEDICARE ==
[2021-12-16 16:19] LABS: EOS # 0.2 10^3/uL (0.0-0.5); EOS % 4.1 % (0.0-3.0); HEMATOCRIT 39.8 % (36.0-47.0); HEMOGLOBIN 12.6 g/dl (12.0-15.5); LYMPH # 0.6 10^3/uL (1.5-5.0); LYMPH % 12.9 % (24.0-44.0); MEAN CORPUSCULAR HEMOGLOBIN 31.3 pg (27.0-33.0); MEAN CORPUSCULAR HGB CONC 31.7 g/dl (32.0-36.5); MEAN CORPUSCULAR VOLUME 98.8 fl (80.0-96.0); MONO # 0.4 10^3/uL (0.0-0.8); MONO % 8.4 % (2.0-8.0); NEUTROPHILS # 3.3 10^3/uL (1.5-8.5); NEUTROPHILS % 74.4 % (36.0-66.0); PLATELET COUNT, AUTOMATED 213 10^3/uL (150-450); RED BLOOD COUNT 4.03 10^6/uL (4.00-5.40); WHITE BLOOD COUNT 4.4 10^3/uL (4.0-10.0)
[2021-12-16 16:36] LABS: ALBUMIN 3.9 GM/DL (3.2-5.2); BILIRUBIN,TOTAL 0.4 MG/DL (0.2-1.0); C REACTIVE PROTEIN QUANTITATIV 1.76 MG/DL (0.00-0.30); CALCIUM LEVEL 9.7 MG/DL (8.8-10.2); CREATININE FOR GFR 1.03 MG/DL (0.55-1.30); GLOMERULAR FILTRATION RATE 56.6 (>45); POTASSIUM SERUM 4.4 MEQ/L (3.5-5.1); TOTAL PROTEIN 6.9 GM/DL (6.4-8.2)
[2021-12-16 18:05] LABS: ERYTHROCYTE SEDIMENTATION RATE 32 mm/hr (0-30)
== END ==
LOC: M WUC 11:31
PROVIDERS: ATTEND Internal Medicine Rheumatology
DX: M06.09 Rheumatoid arthritis without rheumatoid factor, multiple sites (principal); M89.49 Other hypertrophic osteoarthropathy, multiple sites; H04.123 Dry eye syndrome of bilateral lacrimal glands; M25.561 Pain in right knee; Z79.899 Other long term (current) drug therapy

== ENCOUNTER → 2022-03-27 | Outpatient (CLI) | payer MEDICARE ==
[2022-03-27 16:34] LABS: EOS # 0.1 10^3/uL (0.0-0.5); EOS % 1.5 % (0.0-3.0); HEMATOCRIT 39.5 % (36.0-47.0); HEMOGLOBIN 12.4 g/dl (12.0-15.5); LYMPH # 0.9 10^3/uL (1.5-5.0); LYMPH % 11.9 % (24.0-44.0); MEAN CORPUSCULAR HEMOGLOBIN 31.7 pg (27.0-33.0); MEAN CORPUSCULAR HGB CONC 31.4 g/dl (32.0-36.5); MONO # 0.6 10^3/uL (0.0-0.8); MONO % 7.6 % (2.0-8.0); NEUTROPHILS # 5.9 10^3/uL (1.5-8.5); NEUTROPHILS % 78.5 % (36.0-66.0); PLATELET COUNT, AUTOMATED 220 10^3/uL (150-450); RED BLOOD COUNT 3.91 10^6/uL (4.00-5.40); WHITE BLOOD COUNT 7.5 10^3/uL (4.0-10.0)
[2022-03-27 16:40] LABS: ALBUMIN 3.6 GM/DL (3.2-5.2); ALT/SGPT 34 U/L (12-78); BILIRUBIN,TOTAL 0.3 MG/DL (0.2-1.0); BLOOD UREA NITROGEN 12 MG/DL (7-18); C REACTIVE PROTEIN QUANTITATIV 1.51 MG/DL (0.00-0.30); CALCIUM LEVEL 9.9 MG/DL (8.8-10.2); CARBON DIOXIDE LEVEL 32 MEQ/L (21-32); CHLORIDE LEVEL 106 MEQ/L (98-107); CREATININE FOR GFR 0.97 MG/DL (0.55-1.30); GLOMERULAR FILTRATION RATE > 60.0 (>45); GLUCOSE, FASTING 94 MG/DL (70-100); POTASSIUM SERUM 4.3 MEQ/L (3.5-5.1); SODIUM LEVEL 141 MEQ/L (136-145); TOTAL PROTEIN 6.6 GM/DL (6.4-8.2)
[2022-03-27 17:15] LABS: ERYTHROCYTE SEDIMENTATION RATE 27 mm/hr (0-30)
== END ==
LOC: M WUC 11:33
PROVIDERS: ATTEND Internal Medicine Rheumatology
DX: M06.09 Rheumatoid arthritis without rheumatoid factor, multiple sites (principal); M89.49 Other hypertrophic osteoarthropathy, multiple sites; H04.123 Dry eye syndrome of bilateral lacrimal glands; Z79.899 Other long term (current) drug therapy

== ENCOUNTER → 2022-07-31 | Outpatient (CLI) | payer MEDICARE ==
[~2022-07-31] MED LIST changes: +OXYC-1 PO
[2022-07-31 12:35] LABS: EOS # 0.1 10^3/uL (0.0-0.5); EOS % 2.7 % (0.0-3.0); HEMATOCRIT 38.5 % (36.0-47.0); HEMOGLOBIN 12.4 g/dl (12.0-15.5); LYMPH # 0.7 10^3/uL (1.5-5.0); LYMPH % 14.2 % (24.0-44.0); MEAN CORPUSCULAR HGB CONC 32.2 g/dl (32.0-36.5); MEAN CORPUSCULAR VOLUME 99.5 fl (80.0-96.0); MONO # 0.4 10^3/uL (0.0-0.8); MONO % 9.1 % (2.0-8.0); NEUTROPHILS # 3.6 10^3/uL (1.5-8.5); NEUTROPHILS % 73.8 % (36.0-66.0); PLATELET COUNT, AUTOMATED 210 10^3/uL (150-450); RED BLOOD COUNT 3.87 10^6/uL (4.00-5.40); WHITE BLOOD COUNT 4.9 10^3/uL (4.0-10.0)
[2022-07-31 13:21] LABS: ALBUMIN 3.6 GM/DL (3.2-5.2); ALT/SGPT 32 U/L (12-78); BILIRUBIN,TOTAL 0.4 MG/DL (0.2-1.0); BLOOD UREA NITROGEN 15 MG/DL (7-18); C REACTIVE PROTEIN QUANTITATIV 1.75 MG/DL (0.00-0.30); CALCIUM LEVEL 9.4 MG/DL (8.8-10.2); CARBON DIOXIDE LEVEL 32 MEQ/L (21-32); CHLORIDE LEVEL 104 MEQ/L (98-107); CREATININE FOR GFR 0.94 MG/DL (0.55-1.30); GLOMERULAR FILTRATION RATE > 60.0 (>39); GLUCOSE, FASTING 88 MG/DL (70-100); POTASSIUM SERUM 4.6 MEQ/L (3.5-5.1); SODIUM LEVEL 139 MEQ/L (136-145); TOTAL PROTEIN 6.6 GM/DL (6.4-8.2)
[2022-07-31 13:31] LABS: ERYTHROCYTE SEDIMENTATION RATE 34 mm/hr (0-30)
== END ==
LOC: M WUC 10:31
PROVIDERS: ATTEND Internal Medicine Rheumatology
DX: M06.09 Rheumatoid arthritis without rheumatoid factor, multiple sites (principal); M89.49 Other hypertrophic osteoarthropathy, multiple sites; H04.123 Dry eye syndrome of bilateral lacrimal glands; Z79.899 Other long term (current) drug therapy

== ENCOUNTER → 2022-08-24 | Outpatient (CLI) | payer MEDICARE ==
[~2022-08-24] VITALS: Ht 157.5 cm; Wt 82.4 kg
[~2022-08-24] MED LIST changes: +DIPH25CA32 PO; +METH-1178 PO; -METH2.5T OR; +METH2.5T PO
[2022-08-24 14:33] VITALS: BP 159/70
== END ==
LOC: M PAL 14:13
PROVIDERS: ATTEND Nurse Practitioner Adult Health
DX: M06.09 Rheumatoid arthritis without rheumatoid factor, multiple sites (principal); M89.48 Other hypertrophic osteoarthropathy, other site; M79.7 Fibromyalgia; I10 Essential (primary) hypertension; L30.9 Dermatitis, unspecified; J45.909 Unspecified asthma, uncomplicated; E06.3 Autoimmune thyroiditis; R53.82 Chronic fatigue, unspecified; Z79.899 Other long term (current) drug therapy; Z79.891 Long term (current) use of opiate analgesic; Z88.0 Allergy status to penicillin; Z88.1 Allergy status to other antibiotic agents; Z88.2 Allergy status to sulfonamides; Z88.8 Allergy status to other drugs, medicaments and biological substances; Z51.5 Encounter for palliative care

== ENCOUNTER → 2022-10-03 | Outpatient (CLI) | payer MEDICARE ==
[~2022-10-03] VITALS: Ht 160 cm; Wt 82.9 kg
[~2022-10-03] MED LIST changes: +AMLO1TAB25 PO; +CALCTAB41 PO; +EQL50TAB2 PO; +FOLI1TAB11 PO; +HYDR-643 PO; +LEVO100T5 PO; +METH2.5T48 PO; +PROM25TA12 PO; +RIZA10TA58 PO; +SPIR-10 PO; +VITA-158 PO; +VITA200016 PO; +VITMTA PO; +ZOLO100T PO
[2022-10-03 14:05] VITALS: BP 160/70
== END ==
LOC: M PAL 13:55
PROVIDERS: ATTEND Nurse Practitioner Adult Health
DX: M06.9 Rheumatoid arthritis, unspecified (principal); M89.48 Other hypertrophic osteoarthropathy, other site; M79.7 Fibromyalgia; I10 Essential (primary) hypertension; L30.9 Dermatitis, unspecified; J45.909 Unspecified asthma, uncomplicated; E06.3 Autoimmune thyroiditis; R53.82 Chronic fatigue, unspecified; Z79.899 Other long term (current) drug therapy; Z79.891 Long term (current) use of opiate analgesic; Z88.0 Allergy status to penicillin; Z88.1 Allergy status to other antibiotic agents; Z88.2 Allergy status to sulfonamides; Z88.8 Allergy status to other drugs, medicaments and biological substances; Z51.5 Encounter for palliative care

== ENCOUNTER → 2022-11-02 | Outpatient (CLI) | payer MEDICARE ==
[~2022-11-02] VITALS: Ht 161.3 cm; Wt 81.6 kg
[~2022-11-02] MED LIST changes: +DIPH-435 PO; -DIPH25CA32 PO
[2022-11-02 08:45] VITALS: BP 155/74
== END ==
LOC: M PAL 08:38
PROVIDERS: ATTEND Nurse Practitioner Adult Health
DX: M06.9 Rheumatoid arthritis, unspecified (principal); M79.7 Fibromyalgia; I10 Essential (primary) hypertension; Z51.5 Encounter for palliative care; R53.82 Chronic fatigue, unspecified; L30.9 Dermatitis, unspecified; J45.909 Unspecified asthma, uncomplicated; M19.90 Unspecified osteoarthritis, unspecified site; E06.3 Autoimmune thyroiditis; Z88.0 Allergy status to penicillin; Z88.1 Allergy status to other antibiotic agents; Z88.2 Allergy status to sulfonamides; Z88.8 Allergy status to other drugs, medicaments and biological substances; Z79.899 Other long term (current) drug therapy; Z79.890 Hormone replacement therapy; Z79.891 Long term (current) use of opiate analgesic; G43.909 Migraine, unspecified, not intractable, without status migrainosus

== ENCOUNTER → 2022-11-15 | Outpatient (CLI) | payer MEDICARE | LOC: M WHC 11:02 | PROVIDERS: ATTEND Advanced Practice Midwife | DX: Z12.31 Encounter for screening mammogram for malignant neoplasm of breast (principal) ==

== ENCOUNTER → 2022-11-27 | Outpatient (CLI) | payer MEDICARE ==
[2022-11-27 16:25] LABS: BASO % 0.1 % (0.0-1.0); EOS # 0.1 10^3/uL (0.0-0.5); EOS % 1.3 % (0.0-3.0); HEMOGLOBIN 13.4 g/dl (12.0-15.5); LYMPH # 0.9 10^3/uL (1.5-5.0); LYMPH % 10.4 % (24.0-44.0); MEAN CORPUSCULAR HEMOGLOBIN 32.3 pg (27.0-33.0); MEAN CORPUSCULAR HGB CONC 31.9 g/dl (32.0-36.5); MEAN CORPUSCULAR VOLUME 101.2 fl (80.0-96.0); MONO # 0.9 10^3/uL (0.0-0.8); MONO % 10.4 % (2.0-8.0); NEUTROPHILS # 6.7 10^3/uL (1.5-8.5); NEUTROPHILS % 77.2 % (36.0-66.0); PLATELET COUNT, AUTOMATED 241 10^3/uL (150-450); RED BLOOD COUNT 4.15 10^6/uL (4.00-5.40); WHITE BLOOD COUNT 8.7 10^3/uL (4.0-10.0)
[2022-11-27 16:36] LABS: ERYTHROCYTE SEDIMENTATION RATE 76 mm/hr (0-30)
[2022-11-27 16:45] LABS: C REACTIVE PROTEIN QUANTITATIV 4.4 MG/DL (<1.0)
[2022-11-27 16:50] LABS: ALBUMIN 3.6 G/DL (3.2-5.2); BILIRUBIN,TOTAL 0.5 MG/DL (0.3-1.2); CALCIUM LEVEL 9.1 MG/DL (8.3-10.6); CREATININE FOR GFR 1.02 MG/DL (0.55-1.30); POTASSIUM SERUM 4.2 MMOL/L (3.5-5.1); TOTAL PROTEIN 6.5 G/DL (5.7-8.2)
== END ==
LOC: M WUC 11:45
PROVIDERS: ATTEND Internal Medicine Rheumatology
DX: M06.09 Rheumatoid arthritis without rheumatoid factor, multiple sites (principal); M89.49 Other hypertrophic osteoarthropathy, multiple sites; H04.123 Dry eye syndrome of bilateral lacrimal glands; Z79.899 Other long term (current) drug therapy

== ENCOUNTER → 2022-11-27 | Outpatient (CLI) | payer MEDICARE ==
[2022-11-27 16:23] LABS: BASO % 0.1 % (0.0-1.0); EOS # 0.1 10^3/uL (0.0-0.5); EOS % 1.2 % (0.0-3.0); HEMOGLOBIN 13.5 g/dl (12.0-15.5); LYMPH # 0.9 10^3/uL (1.5-5.0); LYMPH % 10.2 % (24.0-44.0); MEAN CORPUSCULAR HEMOGLOBIN 32.6 pg (27.0-33.0); MEAN CORPUSCULAR HGB CONC 32.1 g/dl (32.0-36.5); MEAN CORPUSCULAR VOLUME 101.4 fl (80.0-96.0); MONO # 0.9 10^3/uL (0.0-0.8); MONO % 9.9 % (2.0-8.0); NEUTROPHILS # 6.7 10^3/uL (1.5-8.5); NEUTROPHILS % 77.8 % (36.0-66.0); PLATELET COUNT, AUTOMATED 241 10^3/uL (150-450); RED BLOOD COUNT 4.14 10^6/uL (4.00-5.40); WHITE BLOOD COUNT 8.6 10^3/uL (4.0-10.0)
[2022-11-27 16:47] LABS: APPEARANCE, URINE MANUAL CLEAR (CLEAR); BILIRUBIN, URINE MANUAL NEGATIVE (NEGATIVE); COLOR, URINE MANUAL YELLOW (YELLOW); GLUCOSE, URINE (UA) MANUAL NEGATIVE (NEGATIVE); KETONE, URINE MANUAL NEGATIVE (NEGATIVE); LEUKOCYTE ESTERASE, URINE MAN TRACE (NEGATIVE); NITRITE, URINE MANUAL NEGATIVE (NEGATIVE); PROTEIN, URINE MANUAL TRACE mg/dL (NEGATIVE); UROBILINOGEN, URINE MANUAL NORMAL (NORMAL)
[2022-11-27 16:48] LABS: BLOOD URINE MANUAL NEGATIVE (NEGATIVE)
[2022-11-27 16:49] LABS: ALBUMIN 3.6 G/DL (3.2-5.2); BILIRUBIN,TOTAL 0.5 MG/DL (0.3-1.2); CALCIUM LEVEL 9.1 MG/DL (8.3-10.6); CREATININE FOR GFR 1.02 MG/DL (0.55-1.30); POTASSIUM SERUM 4.3 MMOL/L (3.5-5.1); TOTAL PROTEIN 6.5 G/DL (5.7-8.2)
[2022-11-27 18:36] LABS: RBC, URINE 0-1 /hpf (0-3); WBC, URINE 0-1 /hpf (0-3)
[2022-11-27 18:37] LABS: BACTERIA, URINE MOD AMOUNT; MUCUS, URINE MOD AMOUNT (NEGATIVE); SQUAMOUS EPITHELIAL CELL URINE SMALL AMOUNT /hpf (SMALL AMT)
== END ==
LOC: M WUC 11:42
PROVIDERS: ATTEND Family Medicine
DX: I10 Essential (primary) hypertension (principal); K21.9 Gastro-esophageal reflux disease without esophagitis; E03.9 Hypothyroidism, unspecified

== ENCOUNTER → 2022-12-13 | Outpatient (CLI) | payer MEDICARE ==
[~2022-12-13] VITALS: Ht 160 cm; Wt 82.8 kg
[2022-12-13 10:19] VITALS: BP 143/68
== END ==
LOC: M PAL 10:12
PROVIDERS: ATTEND Nurse Practitioner Adult Health
DX: M06.9 Rheumatoid arthritis, unspecified (principal); M79.7 Fibromyalgia; I10 Essential (primary) hypertension; Z51.5 Encounter for palliative care; R53.82 Chronic fatigue, unspecified; L30.9 Dermatitis, unspecified; J45.909 Unspecified asthma, uncomplicated; M19.90 Unspecified osteoarthritis, unspecified site; E06.3 Autoimmune thyroiditis; Z88.0 Allergy status to penicillin; Z88.1 Allergy status to other antibiotic agents; Z88.2 Allergy status to sulfonamides; Z79.899 Other long term (current) drug therapy; Z88.8 Allergy status to other drugs, medicaments and biological substances; Z79.891 Long term (current) use of opiate analgesic; G43.909 Migraine, unspecified, not intractable, without status migrainosus

== ENCOUNTER → 2022-12-27 | Outpatient (CLI) | payer MEDICARE ==
[2022-12-27 16:49] LABS: C REACTIVE PROTEIN QUANTITATIV 2.3 MG/DL (<1.0)
[2022-12-27 16:51] LABS: EOS # 0.1 10^3/uL (0.0-0.5); EOS % 1.2 % (0.0-3.0); HEMATOCRIT 43.5 % (36.0-47.0); HEMOGLOBIN 13.8 g/dl (12.0-15.5); IMMUNOGLOBULIN A 173.2 MG/DL (40-350); IMMUNOGLOBULIN M 117.3 MG/DL (50-300); LYMPH % 15.4 % (24.0-44.0); MEAN CORPUSCULAR HEMOGLOBIN 32.2 pg (27.0-33.0); MEAN CORPUSCULAR HGB CONC 31.7 g/dl (32.0-36.5); MEAN CORPUSCULAR VOLUME 101.6 fl (80.0-96.0); MONO # 0.5 10^3/uL (0.0-0.8); NEUTROPHILS # 5.1 10^3/uL (1.5-8.5); NEUTROPHILS % 75.1 % (36.0-66.0); PLATELET COUNT, AUTOMATED 268 10^3/uL (150-450); RED BLOOD COUNT 4.28 10^6/uL (4.00-5.40); WHITE BLOOD COUNT 6.8 10^3/uL (4.0-10.0)
[2022-12-27 16:55] LABS: ALBUMIN 4.1 G/DL (3.2-5.2); BILIRUBIN,TOTAL 0.7 MG/DL (0.3-1.2); CALCIUM LEVEL 9.8 MG/DL (8.3-10.6); CREATININE FOR GFR 1.08 MG/DL (0.55-1.30); GLOMERULAR FILTRATION RATE 53.4 (>39); POTASSIUM SERUM 4.4 MMOL/L (3.5-5.1); TOTAL PROTEIN 6.9 G/DL (5.7-8.2)
[2022-12-27 17:09] LABS: ERYTHROCYTE SEDIMENTATION RATE 68 mm/hr (0-30)
[2022-12-29 18:07] LABS: ALDOLASE 4.9 U/L (3.3-10.3)
== END ==
LOC: M WUC 11:23
PROVIDERS: ATTEND Internal Medicine Rheumatology
DX: M06.09 Rheumatoid arthritis without rheumatoid factor, multiple sites (principal); M89.49 Other hypertrophic osteoarthropathy, multiple sites; H04.123 Dry eye syndrome of bilateral lacrimal glands; Z79.899 Other long term (current) drug therapy

== ENCOUNTER → 2023-02-07 | Outpatient (CLI) | payer MEDICARE ==
[~2023-02-07] VITALS: Ht 165.1 cm; Wt 82.3 kg
[~2023-02-07] MED LIST changes: +ARTIDRO4 OU; +NYST-38 PO; -POLYOPD OU
[2023-02-07 10:17] VITALS: BP 157/70
== END ==
LOC: M PAL 10:12
PROVIDERS: ATTEND Nurse Practitioner Adult Health
DX: M06.9 Rheumatoid arthritis, unspecified (principal); M79.4 Hypertrophy of (infrapatellar) fat pad; I10 Essential (primary) hypertension; R53.82 Chronic fatigue, unspecified; G43.909 Migraine, unspecified, not intractable, without status migrainosus; M25.551 Pain in right hip; M25.561 Pain in right knee; L30.9 Dermatitis, unspecified; J45.909 Unspecified asthma, uncomplicated; M19.90 Unspecified osteoarthritis, unspecified site; E06.3 Autoimmune thyroiditis; Z51.5 Encounter for palliative care; Z88.0 Allergy status to penicillin; Z88.1 Allergy status to other antibiotic agents; Z88.2 Allergy status to sulfonamides; Z79.891 Long term (current) use of opiate analgesic; Z79.899 Other long term (current) drug therapy; Z88.8 Allergy status to other drugs, medicaments and biological substances

== ENCOUNTER → 2023-02-08 | Outpatient (REF) | payer MEDICARE ==
[2023-02-08 18:47] LABS: HEPATITIS B SURFACE ANTIGEN NEGATIVE (NEGATIVE)
[2023-02-08 19:08] LABS: HEPATITIS B CORE ANTIBODY IGM NEGATIVE (NEGATIVE)
== END ==
LOC: M SFHCRHEU 12:08
PROVIDERS: ATTEND Internal Medicine Rheumatology
DX: M06.09 Rheumatoid arthritis without rheumatoid factor, multiple sites (principal); M89.49 Other hypertrophic osteoarthropathy, multiple sites; H04.123 Dry eye syndrome of bilateral lacrimal glands; Z79.899 Other long term (current) drug therapy

== ENCOUNTER → 2023-03-06 | Outpatient (CLI) | payer MEDICARE ==
[~2023-03-06] VITALS: Ht 160 cm; Wt 82.5 kg
[2023-03-06 10:38] VITALS: BP 159/65
== END ==
LOC: M PAL 10:09
PROVIDERS: ATTEND Nurse Practitioner Adult Health
DX: M06.9 Rheumatoid arthritis, unspecified (principal); Z51.5 Encounter for palliative care; Z79.891 Long term (current) use of opiate analgesic; M19.90 Unspecified osteoarthritis, unspecified site; M79.7 Fibromyalgia; G89.29 Other chronic pain; M25.562 Pain in left knee; M25.551 Pain in right hip; B37.0 Candidal stomatitis; G43.909 Migraine, unspecified, not intractable, without status migrainosus; Z79.899 Other long term (current) drug therapy; Z79.890 Hormone replacement therapy; Z88.0 Allergy status to penicillin; Z88.1 Allergy status to other antibiotic agents; Z88.2 Allergy status to sulfonamides; Z88.8 Allergy status to other drugs, medicaments and biological substances

== ENCOUNTER → 2023-04-20 | Outpatient (CLI) | payer MEDICARE ==
[2023-04-20 19:10] LABS: EOS # 0.2 10^3/uL (0.0-0.5); EOS % 3.3 % (0.0-3.0); HEMATOCRIT 40.3 % (36.0-47.0); HEMOGLOBIN 12.6 g/dl (12.0-15.5); LYMPH # 0.8 10^3/uL (1.5-5.0); LYMPH % 12.8 % (24.0-44.0); MEAN CORPUSCULAR HEMOGLOBIN 32.5 pg (27.0-33.0); MEAN CORPUSCULAR HGB CONC 31.3 g/dl (32.0-36.5); MEAN CORPUSCULAR VOLUME 103.9 fl (80.0-96.0); MONO # 0.7 10^3/uL (0.0-0.8); NEUTROPHILS # 4.4 10^3/uL (1.5-8.5); NEUTROPHILS % 72.6 % (36.0-66.0); PLATELET COUNT, AUTOMATED 208 10^3/uL (150-450); RED BLOOD COUNT 3.88 10^6/uL (4.00-5.40)
[2023-04-20 19:26] LABS: C REACTIVE PROTEIN QUANTITATIV 2.6 MG/DL (<1.0)
[2023-04-20 19:28] LABS: ALBUMIN 3.7 G/DL (3.2-5.2); BILIRUBIN,TOTAL 0.5 MG/DL (0.3-1.2); CALCIUM LEVEL 10.2 MG/DL (8.3-10.6); CREATININE FOR GFR 1.09 MG/DL (0.55-1.30); GLOMERULAR FILTRATION RATE 52.8 (>39); POTASSIUM SERUM 4.1 MMOL/L (3.5-5.1); TOTAL PROTEIN 6.3 G/DL (5.7-8.2)
[2023-04-20 20:17] LABS: ERYTHROCYTE SEDIMENTATION RATE 44 mm/hr (0-30)
== END ==
LOC: M WUC 11:15
PROVIDERS: ATTEND Internal Medicine Rheumatology
DX: M06.09 Rheumatoid arthritis without rheumatoid factor, multiple sites (principal); M89.49 Other hypertrophic osteoarthropathy, multiple sites; H04.123 Dry eye syndrome of bilateral lacrimal glands; Z79.899 Other long term (current) drug therapy

== ENCOUNTER → 2023-05-08 | Outpatient (CLI) | payer MEDICARE ==
[~2023-05-08] VITALS: Ht 160 cm; Wt 82.6 kg
[~2023-05-08] MED LIST changes: +FLUT44IN INH; +PRED5TA PO
[2023-05-08 10:29] VITALS: BP 156/70; TEMP 97.2; O2SAT 95
== END ==
LOC: M PAL 10:14
PROVIDERS: ATTEND Nurse Practitioner Adult Health
DX: M06.09 Rheumatoid arthritis without rheumatoid factor, multiple sites (principal); M19.90 Unspecified osteoarthritis, unspecified site; M79.7 Fibromyalgia; G89.29 Other chronic pain; Z51.5 Encounter for palliative care; Z79.891 Long term (current) use of opiate analgesic; Z79.52 Long term (current) use of systemic steroids; Z88.8 Allergy status to other drugs, medicaments and biological substances; Z99.0 Dependence on aspirator; Z88.2 Allergy status to sulfonamides; Z88.1 Allergy status to other antibiotic agents; Z88.6 Allergy status to analgesic agent; Z79.899 Other long term (current) drug therapy; Z79.51 Long term (current) use of inhaled steroids; Z79.890 Hormone replacement therapy

== ENCOUNTER → 2023-07-11 | Outpatient (CLI) | payer MEDICARE ==
[~2023-07-11] VITALS: Ht 157.5 cm; Wt 84.7 kg
[2023-07-11 09:35] VITALS: BP 140/82; O2SAT 98
== END ==
LOC: M PAL 09:26
PROVIDERS: ATTEND Nurse Practitioner Adult Health
DX: M06.09 Rheumatoid arthritis without rheumatoid factor, multiple sites (principal); M19.90 Unspecified osteoarthritis, unspecified site; M79.7 Fibromyalgia; G89.29 Other chronic pain; Z51.5 Encounter for palliative care; Z79.51 Long term (current) use of inhaled steroids; Z79.52 Long term (current) use of systemic steroids; Z79.631 Long term (current) use of antimetabolite agent; Z79.891 Long term (current) use of opiate analgesic; Z79.890 Hormone replacement therapy; Z79.899 Other long term (current) drug therapy; Z88.1 Allergy status to other antibiotic agents; Z88.2 Allergy status to sulfonamides; Z88.8 Allergy status to other drugs, medicaments and biological substances; Z88.6 Allergy status to analgesic agent; Z90.710 Acquired absence of both cervix and uterus; Z90.722 Acquired absence of ovaries, bilateral; Z90.79 Acquired absence of other genital organ(s)

== ENCOUNTER → 2023-10-11 | Outpatient (CLI) | payer MEDICARE ==
[~2023-10-11] VITALS: Ht 160 cm; Wt 94.6 kg
[2023-10-11 09:38] VITALS: BP 185/76; O2SAT 96
== END ==
LOC: M PAL 10-05 12:10
PROVIDERS: ATTEND Nurse Practitioner Adult Health
DX: M06.09 Rheumatoid arthritis without rheumatoid factor, multiple sites (principal); M19.90 Unspecified osteoarthritis, unspecified site; M79.7 Fibromyalgia; G89.29 Other chronic pain; Z51.5 Encounter for palliative care; Z79.51 Long term (current) use of inhaled steroids; Z79.52 Long term (current) use of systemic steroids; Z79.631 Long term (current) use of antimetabolite agent; Z79.891 Long term (current) use of opiate analgesic; Z79.890 Hormone replacement therapy; Z79.899 Other long term (current) drug therapy; Z88.1 Allergy status to other antibiotic agents; Z88.2 Allergy status to sulfonamides; Z88.8 Allergy status to other drugs, medicaments and biological substances; Z88.6 Allergy status to analgesic agent; Z90.710 Acquired absence of both cervix and uterus; Z90.722 Acquired absence of ovaries, bilateral; Z90.79 Acquired absence of other genital organ(s); Z96.642 Presence of left artificial hip joint; Z96.651 Presence of right artificial knee joint

== ENCOUNTER → 2023-11-20 | Outpatient (CLI) | payer MEDICARE | LOC: M WHC 10:57 | PROVIDERS: ATTEND Advanced Practice Midwife | DX: Z12.31 Encounter for screening mammogram for malignant neoplasm of breast (principal) ==

== ENCOUNTER → 2023-11-23 | Outpatient (CLI) | payer MEDICARE ==
[2023-11-23 12:02] LABS: BASO % 0.1 % (0.0-1.0); EOS # 0.1 10^3/uL (0.0-0.5); HEMATOCRIT 36.5 % (36.0-47.0); HEMOGLOBIN 11.3 g/dl (12.0-15.5); LYMPH % 10.5 % (24.0-44.0); MEAN CORPUSCULAR HEMOGLOBIN 31.2 pg (27.0-33.0); MEAN CORPUSCULAR VOLUME 100.8 fl (80.0-96.0); MONO # 0.9 10^3/uL (0.0-0.8); MONO % 8.9 % (2.0-8.0); NEUTROPHILS # 7.6 10^3/uL (1.5-8.5); NEUTROPHILS % 79.2 % (36.0-66.0); PLATELET COUNT, AUTOMATED 258 10^3/uL (150-450); RED BLOOD COUNT 3.62 10^6/uL (4.00-5.40); WHITE BLOOD COUNT 9.6 10^3/uL (4.0-10.0)
[2023-11-23 12:07] LABS: APPEARANCE, URINE HAZY (CLEAR); BACTERIA, URINE AUTO 1+ (NEGATIVE); BILIRUBIN, URINE AUTO NEGATIVE (NEGATIVE); BLOOD, URINE BLOOD NEGATIVE (NEGATIVE); COLOR, URINE AMBER (YELLOW); GLUCOSE, URINE (UA) AUTO NEGATIVE (NEGATIVE); KETONE, URINE AUTO TRACE mg/dL (NEGATIVE); LEUKOCYTE ESTERASE, URINE AUTO 1+ (NEGATIVE); MUCUS, URINE SMALL (NEGATIVE); NITRITE, URINE AUTO NEGATIVE (NEGATIVE); PROTEIN, URINE AUTO 1+ mg/dL (NEGATIVE); RBC, URINE AUTO 1 /HPF (0-3); SPECIFIC GRAVITY URINE AUTO 1.019 (1.002-1.035); SQUAMOUS EPITHELIAL CELL UR AU 0 /HPF (0-6); UROBILINOGEN, URINE AUTO 0.2 mg/dL (0.0-2.0); WBC, URINE AUTO 6 /HPF (0-3)
[2023-11-23 12:26] LABS: ALBUMIN 3.8 G/DL (3.2-5.2); BILIRUBIN,TOTAL 0.3 MG/DL (0.3-1.2); CALCIUM LEVEL 9.8 MG/DL (8.3-10.6); GLOMERULAR FILTRATION RATE 58.2 (>39); TOTAL PROTEIN 6.5 G/DL (5.7-8.2)
[2023-11-23 12:28] LABS: THYROID STIMULATING HORMONE 2.779 uIU/ML (0.55-4.78)
== END ==
LOC: M WUC 09:33
PROVIDERS: ATTEND Family Medicine
DX: I10 Essential (primary) hypertension (principal); E03.9 Hypothyroidism, unspecified; K21.9 Gastro-esophageal reflux disease without esophagitis; M06.09 Rheumatoid arthritis without rheumatoid factor, multiple sites; M89.49 Other hypertrophic osteoarthropathy, multiple sites; H04.123 Dry eye syndrome of bilateral lacrimal glands; Z79.899 Other long term (current) drug therapy

== ENCOUNTER → 2023-11-23 | Outpatient (CLI) | payer MEDICARE ==
[2023-11-23 12:02] LABS: BASO % 0.1 % (0.0-1.0); EOS # 0.1 10^3/uL (0.0-0.5); EOS % 1.1 % (0.0-3.0); HEMATOCRIT 37.4 % (36.0-47.0); HEMOGLOBIN 11.4 g/dl (12.0-15.5); LYMPH # 0.9 10^3/uL (1.5-5.0); LYMPH % 9.9 % (24.0-44.0); MEAN CORPUSCULAR HEMOGLOBIN 30.6 pg (27.0-33.0); MEAN CORPUSCULAR HGB CONC 30.5 g/dl (32.0-36.5); MEAN CORPUSCULAR VOLUME 100.3 fl (80.0-96.0); MONO # 0.8 10^3/uL (0.0-0.8); MONO % 8.7 % (2.0-8.0); NEUTROPHILS # 7.6 10^3/uL (1.5-8.5); NEUTROPHILS % 79.6 % (36.0-66.0); PLATELET COUNT, AUTOMATED 251 10^3/uL (150-450); RED BLOOD COUNT 3.73 10^6/uL (4.00-5.40); WHITE BLOOD COUNT 9.5 10^3/uL (4.0-10.0)
[2023-11-23 12:17] LABS: ERYTHROCYTE SEDIMENTATION RATE 40 mm/hr (0-30)
[2023-11-23 12:23] LABS: C REACTIVE PROTEIN QUANTITATIV 5.9 MG/DL (<1.0)
[2023-11-23 12:25] LABS: ALBUMIN 3.8 G/DL (3.2-5.2); BILIRUBIN,TOTAL 0.3 MG/DL (0.3-1.2); CALCIUM LEVEL 9.2 MG/DL (8.3-10.6); CREATININE FOR GFR 0.98 MG/DL (0.55-1.30); GLOMERULAR FILTRATION RATE 59.6 (>39); POTASSIUM SERUM 3.9 MMOL/L (3.5-5.1); TOTAL PROTEIN 6.4 G/DL (5.7-8.2)
== END ==
LOC: M WUC 09:29
PROVIDERS: ATTEND Internal Medicine Rheumatology
DX: M06.09 Rheumatoid arthritis without rheumatoid factor, multiple sites (principal); M89.49 Other hypertrophic osteoarthropathy, multiple sites; H04.123 Dry eye syndrome of bilateral lacrimal glands; Z79.899 Other long term (current) drug therapy

== ENCOUNTER → 2023-11-28 | Outpatient (CLI) | payer MEDICARE | LOC: M WHC 12:28 | PROVIDERS: ATTEND Advanced Practice Midwife | DX: Z13.820 Encounter for screening for osteoporosis (principal); M85.89 Other specified disorders of bone density and structure, multiple sites ==

== ENCOUNTER → 2023-12-10 | Outpatient (CLI) | payer MEDICARE ==
[2023-12-10 16:21] LABS: BASO % 0.1 % (0.0-1.0); EOS % 0.3 % (0.0-3.0); HEMATOCRIT 37.3 % (36.0-47.0); HEMOGLOBIN 11.4 g/dl (12.0-15.5); LYMPH # 0.6 10^3/uL (1.5-5.0); LYMPH % 5.1 % (24.0-44.0); MEAN CORPUSCULAR HEMOGLOBIN 30.2 pg (27.0-33.0); MEAN CORPUSCULAR HGB CONC 30.6 g/dl (32.0-36.5); MEAN CORPUSCULAR VOLUME 98.9 fl (80.0-96.0); MONO # 0.7 10^3/uL (0.0-0.8); MONO % 6.3 % (2.0-8.0); NEUTROPHILS # 10.2 10^3/uL (1.5-8.5); NEUTROPHILS % 87.8 % (36.0-66.0); PLATELET COUNT, AUTOMATED 260 10^3/uL (150-450); RED BLOOD COUNT 3.77 10^6/uL (4.00-5.40); WHITE BLOOD COUNT 11.6 10^3/uL (4.0-10.0)
[2023-12-10 16:48] LABS: ERYTHROCYTE SEDIMENTATION RATE 35 mm/hr (0-30)
== END ==
LOC: M WUC 11:15
PROVIDERS: ATTEND Physician Assistant
DX: M25.561 Pain in right knee (principal)

== ENCOUNTER → 2023-12-13 | Outpatient (CLI) | payer MEDICARE ==
[~2023-12-13] VITALS: Ht 157.5 cm; Wt 94.0 kg
[2023-12-13 09:51] VITALS: BP 173/77; O2SAT 98
== END ==
LOC: M PAL 09:22
PROVIDERS: ATTEND Nurse Practitioner Adult Health
DX: G89.29 Other chronic pain (principal); M25.561 Pain in right knee; M06.09 Rheumatoid arthritis without rheumatoid factor, multiple sites; M19.90 Unspecified osteoarthritis, unspecified site; M79.7 Fibromyalgia; Z51.5 Encounter for palliative care; Z79.51 Long term (current) use of inhaled steroids; Z79.52 Long term (current) use of systemic steroids; Z79.631 Long term (current) use of antimetabolite agent; Z79.891 Long term (current) use of opiate analgesic; Z79.899 Other long term (current) drug therapy; Z88.0 Allergy status to penicillin; Z88.1 Allergy status to other antibiotic agents; Z88.2 Allergy status to sulfonamides; Z88.8 Allergy status to other drugs, medicaments and biological substances; Z90.710 Acquired absence of both cervix and uterus; Z90.722 Acquired absence of ovaries, bilateral; Z90.79 Acquired absence of other genital organ(s); Z96.643 Presence of artificial hip joint, bilateral; Z96.651 Presence of right artificial knee joint

== ENCOUNTER → 2024-01-03 | Outpatient (CLI) | payer MEDICARE | LOC: M RAD 09:27 | PROVIDERS: ATTEND Physician Assistant | DX: R93.7 Abnormal findings on diagnostic imaging of other parts of musculoskeletal system (principal) | CPT/HCPCS: 78315; A9503 ==

== ENCOUNTER → 2024-01-11 | Outpatient (CLI) | payer MEDICARE ==
[2024-01-11 12:52] LABS: BASO % 0.1 % (0.0-1.0); EOS # 0.1 10^3/uL (0.0-0.5); EOS % 0.6 % (0.0-3.0); HEMATOCRIT 38.6 % (36.0-47.0); HEMOGLOBIN 12.1 g/dl (12.0-15.5); LYMPH # 0.8 10^3/uL (1.5-5.0); LYMPH % 8.3 % (24.0-44.0); MEAN CORPUSCULAR HEMOGLOBIN 30.3 pg (27.0-33.0); MEAN CORPUSCULAR HGB CONC 31.3 g/dl (32.0-36.5); MEAN CORPUSCULAR VOLUME 96.5 fl (80.0-96.0); MONO # 0.7 10^3/uL (0.0-0.8); MONO % 7.2 % (2.0-8.0); NEUTROPHILS # 8.2 10^3/uL (1.5-8.5); NEUTROPHILS % 83.2 % (36.0-66.0); PLATELET COUNT, AUTOMATED 244 10^3/uL (150-450); WHITE BLOOD COUNT 9.8 10^3/uL (4.0-10.0)
[2024-01-11 13:09] LABS: ERYTHROCYTE SEDIMENTATION RATE 39 mm/hr (0-30)
[2024-01-11 13:19] LABS: C REACTIVE PROTEIN QUANTITATIV 2.5 MG/DL (<1.0)
[2024-01-11 13:23] LABS: ALBUMIN 3.8 G/DL (3.2-5.2); BILIRUBIN,TOTAL 0.5 MG/DL (0.3-1.2); CALCIUM LEVEL 10.3 MG/DL (8.3-10.6); CREATININE FOR GFR 1.02 MG/DL (0.55-1.30); GLOMERULAR FILTRATION RATE 56.9 (>39); POTASSIUM SERUM 4.3 MMOL/L (3.5-5.1); TOTAL PROTEIN 6.4 G/DL (5.7-8.2)
== END ==
LOC: M WUC 10:30
PROVIDERS: ATTEND Internal Medicine Rheumatology
DX: M06.09 Rheumatoid arthritis without rheumatoid factor, multiple sites (principal); Z79.899 Other long term (current) drug therapy; M89.49 Other hypertrophic osteoarthropathy, multiple sites; H04.123 Dry eye syndrome of bilateral lacrimal glands

== ENCOUNTER → 2024-01-29 | Outpatient (CLI) | payer MEDICARE ==
[2024-01-29 17:56] LABS: WHITE BLOOD COUNT 9.5 10^3/uL (4.0-10.0)
== END ==
LOC: M WUC 11:34
PROVIDERS: ATTEND Orthopaedic Surgery
DX: M25.561 Pain in right knee (principal); Z96.651 Presence of right artificial knee joint

== ENCOUNTER → 2024-02-12 | Outpatient (REF) | payer MEDICARE ==
[2024-02-12 17:23] LABS: BASO % 0.1 % (0.0-1.0); EOS % 0.2 % (0.0-3.0); HEMATOCRIT 40.5 % (36.0-47.0); HEMOGLOBIN 12.2 g/dl (12.0-15.5); LYMPH # 0.6 10^3/uL (1.5-5.0); LYMPH % 6.7 % (24.0-44.0); MEAN CORPUSCULAR HEMOGLOBIN 29.8 pg (27.0-33.0); MEAN CORPUSCULAR HGB CONC 30.1 g/dl (32.0-36.5); MONO # 0.5 10^3/uL (0.0-0.8); MONO % 5.8 % (2.0-8.0); NEUTROPHILS # 7.5 10^3/uL (1.5-8.5); NEUTROPHILS % 86.9 % (36.0-66.0); PLATELET COUNT, AUTOMATED 221 10^3/uL (150-450); RED BLOOD COUNT 4.09 10^6/uL (4.00-5.40); WHITE BLOOD COUNT 8.7 10^3/uL (4.0-10.0)
[2024-02-12 17:39] LABS: ERYTHROCYTE SEDIMENTATION RATE 27 mm/hr (0-30)
== END ==
LOC: M LABWUC 16:45 → M LAB REF 16:45
PROVIDERS: ATTEND Physician Assistant
DX: M70.61 Trochanteric bursitis, right hip (principal); Z79.899 Other long term (current) drug therapy

== ENCOUNTER → 2024-02-26 | Outpatient (CLI) | payer MEDICARE ==
[2024-02-26 16:59] LABS: EOS % 0.5 % (0.0-3.0); HEMATOCRIT 39.6 % (36.0-47.0); HEMOGLOBIN 12.1 g/dl (12.0-15.5); LYMPH # 0.8 10^3/uL (1.5-5.0); LYMPH % 9.7 % (24.0-44.0); MEAN CORPUSCULAR HEMOGLOBIN 30.3 pg (27.0-33.0); MEAN CORPUSCULAR HGB CONC 30.6 g/dl (32.0-36.5); MEAN CORPUSCULAR VOLUME 99.2 fl (80.0-96.0); MONO # 0.6 10^3/uL (0.0-0.8); MONO % 6.9 % (2.0-8.0); NEUTROPHILS # 7.1 10^3/uL (1.5-8.5); NEUTROPHILS % 82.3 % (36.0-66.0); PLATELET COUNT, AUTOMATED 216 10^3/uL (150-450); RED BLOOD COUNT 3.99 10^6/uL (4.00-5.40); WHITE BLOOD COUNT 8.6 10^3/uL (4.0-10.0)
[2024-02-26 17:07] LABS: ERYTHROCYTE SEDIMENTATION RATE 16 mm/hr (0-30)
== END ==
LOC: M WUC 10:50
PROVIDERS: ATTEND Physician Assistant
DX: M70.61 Trochanteric bursitis, right hip (principal); Z79.899 Other long term (current) drug therapy

== ENCOUNTER → 2024-03-13 | Outpatient (CLI) | payer MEDICARE ==
[2024-03-13 15:02] LABS: BASO % 0.1 % (0.0-1.0); EOS # 0.1 10^3/uL (0.0-0.5); EOS % 0.6 % (0.0-3.0); HEMATOCRIT 40.2 % (36.0-47.0); HEMOGLOBIN 12.5 g/dl (12.0-15.5); LYMPH # 0.7 10^3/uL (1.5-5.0); LYMPH % 9.2 % (24.0-44.0); MEAN CORPUSCULAR HEMOGLOBIN 31.3 pg (27.0-33.0); MEAN CORPUSCULAR HGB CONC 31.1 g/dl (32.0-36.5); MEAN CORPUSCULAR VOLUME 100.8 fl (80.0-96.0); MONO # 0.5 10^3/uL (0.0-0.8); MONO % 6.7 % (2.0-8.0); NEUTROPHILS # 6.6 10^3/uL (1.5-8.5); NEUTROPHILS % 82.8 % (36.0-66.0); PLATELET COUNT, AUTOMATED 222 10^3/uL (150-450); RED BLOOD COUNT 3.99 10^6/uL (4.00-5.40)
[2024-03-13 15:17] LABS: ERYTHROCYTE SEDIMENTATION RATE 14 mm/hr (0-30)
[2024-03-13 15:27] LABS: C REACTIVE PROTEIN QUANTITATIV 0.7 MG/DL (<1.0)
[2024-03-13 15:28] LABS: ALBUMIN 4.1 G/DL (3.2-5.2); BILIRUBIN,TOTAL 0.6 MG/DL (0.3-1.2); CREATININE FOR GFR 1.03 MG/DL (0.55-1.30); GLOMERULAR FILTRATION RATE 56.2 (>39); POTASSIUM SERUM 4.2 MMOL/L (3.5-5.1); TOTAL PROTEIN 6.4 G/DL (5.7-8.2)
== END ==
LOC: M WUC 11:03
PROVIDERS: ATTEND Internal Medicine Rheumatology
DX: M06.09 Rheumatoid arthritis without rheumatoid factor, multiple sites (principal); M89.49 Other hypertrophic osteoarthropathy, multiple sites; H04.123 Dry eye syndrome of bilateral lacrimal glands; Z79.899 Other long term (current) drug therapy

== ENCOUNTER → 2024-04-23 | Outpatient (CLI) | payer MEDICARE ==
[~2024-04-23] VITALS: Ht 157.5 cm; Wt 95.4 kg
[~2024-04-23] MED LIST changes: +ETAN50PE SC
[2024-04-23 10:39] VITALS: BP 187/73; O2SAT 95
== END ==
LOC: M PAL 10:11
PROVIDERS: ATTEND Nurse Practitioner Adult Health
DX: G89.29 Other chronic pain (principal); M25.561 Pain in right knee; M06.09 Rheumatoid arthritis without rheumatoid factor, multiple sites; M19.90 Unspecified osteoarthritis, unspecified site; M79.7 Fibromyalgia; Z51.5 Encounter for palliative care; Z79.51 Long term (current) use of inhaled steroids; Z79.52 Long term (current) use of systemic steroids; Z79.631 Long term (current) use of antimetabolite agent; Z79.891 Long term (current) use of opiate analgesic; Z79.899 Other long term (current) drug therapy; Z88.0 Allergy status to penicillin; Z88.1 Allergy status to other antibiotic agents; Z88.2 Allergy status to sulfonamides; Z88.8 Allergy status to other drugs, medicaments and biological substances; Z90.710 Acquired absence of both cervix and uterus; Z90.722 Acquired absence of ovaries, bilateral; Z90.79 Acquired absence of other genital organ(s); Z96.643 Presence of artificial hip joint, bilateral; Z96.651 Presence of right artificial knee joint

== ENCOUNTER → 2024-06-10 | Outpatient (CLI) | payer MEDICARE ==
[2024-06-10 16:44] LABS: EOS % 0.4 % (0.0-3.0); HEMATOCRIT 38.6 % (36.0-47.0); HEMOGLOBIN 12.4 g/dl (12.0-15.5); LYMPH # 0.6 10^3/uL (1.5-5.0); LYMPH % 7.1 % (24.0-44.0); MEAN CORPUSCULAR HEMOGLOBIN 32.1 pg (27.0-33.0); MEAN CORPUSCULAR HGB CONC 32.1 g/dl (32.0-36.5); MONO # 0.4 10^3/uL (0.0-0.8); MONO % 5.1 % (2.0-8.0); NEUTROPHILS % 87.1 % (36.0-66.0); PLATELET COUNT, AUTOMATED 190 10^3/uL (150-450); RED BLOOD COUNT 3.86 10^6/uL (4.00-5.40)
[2024-06-10 16:56] LABS: ERYTHROCYTE SEDIMENTATION RATE 19 mm/hr (0-30)
[2024-06-10 17:08] LABS: ALBUMIN 4.3 G/DL (3.2-5.2); ALKALINE PHOSPHATASE 108 U/L (46-116); ALT/SGPT 24 U/L (7.0-40); AST/SGOT 31 U/L (<34); BILIRUBIN,TOTAL 0.6 MG/DL (0.3-1.2); BLOOD UREA NITROGEN 16 MG/DL (9-23); CALCIUM LEVEL 9.8 MG/DL (8.3-10.6); CARBON DIOXIDE LEVEL 32 MMOL/L (20-31); CHLORIDE LEVEL 103 MMOL/L (98-107); CREATININE FOR GFR 0.96 MG/DL (0.55-1.30); GLOMERULAR FILTRATION RATE > 60.0 (>39); GLUCOSE, FASTING 94 MG/DL (74-106); POTASSIUM SERUM 4.7 MMOL/L (3.5-5.1); SODIUM LEVEL 141 MMOL/L (136-145); TOTAL PROTEIN 6.8 G/DL (5.7-8.2)
== END ==
LOC: M WUC 12:22
PROVIDERS: ATTEND Internal Medicine Rheumatology
DX: M06.09 Rheumatoid arthritis without rheumatoid factor, multiple sites (principal); M89.49 Other hypertrophic osteoarthropathy, multiple sites; H04.123 Dry eye syndrome of bilateral lacrimal glands; Z79.899 Other long term (current) drug therapy

== ENCOUNTER → 2024-06-25 | Outpatient (CLI) | payer MEDICARE ==
[~2024-06-25] VITALS: Ht 157.5 cm; Wt 90.8 kg
[~2024-06-25] MED LIST changes: +PRED1TABL PO; +TIZA1TAB12 PO
[2024-06-25 10:24] VITALS: BP 187/73; O2SAT 95
== END ==
LOC: M PAL 10:14
PROVIDERS: ATTEND Nurse Practitioner Adult Health
DX: G89.29 Other chronic pain (principal); M06.09 Rheumatoid arthritis without rheumatoid factor, multiple sites; M19.90 Unspecified osteoarthritis, unspecified site; M79.7 Fibromyalgia; Z51.5 Encounter for palliative care; Z79.51 Long term (current) use of inhaled steroids; Z79.52 Long term (current) use of systemic steroids; Z79.631 Long term (current) use of antimetabolite agent; Z79.890 Hormone replacement therapy; Z79.891 Long term (current) use of opiate analgesic; Z79.899 Other long term (current) drug therapy; Z88.0 Allergy status to penicillin; Z88.1 Allergy status to other antibiotic agents; Z88.2 Allergy status to sulfonamides; Z88.8 Allergy status to other drugs, medicaments and biological substances; Z90.710 Acquired absence of both cervix and uterus; Z90.722 Acquired absence of ovaries, bilateral; Z90.79 Acquired absence of other genital organ(s); Z96.643 Presence of artificial hip joint, bilateral; Z96.651 Presence of right artificial knee joint

== ENCOUNTER → 2024-07-18 | Outpatient (CLI) | payer MEDICARE ==
[2024-07-18 12:45] LABS: EOS # 0.2 10^3/uL (0.0-0.5); EOS % 2.4 % (0.0-3.0); HEMATOCRIT 39.2 % (36.0-47.0); HEMOGLOBIN 12.6 g/dl (12.0-15.5); LYMPH # 0.8 10^3/uL (1.5-5.0); LYMPH % 10.4 % (24.0-44.0); MEAN CORPUSCULAR HEMOGLOBIN 31.9 pg (27.0-33.0); MEAN CORPUSCULAR HGB CONC 32.1 g/dl (32.0-36.5); MEAN CORPUSCULAR VOLUME 99.2 fl (80.0-96.0); MONO # 0.7 10^3/uL (0.0-0.8); NEUTROPHILS # 5.6 10^3/uL (1.5-8.5); NEUTROPHILS % 77.6 % (36.0-66.0); PLATELET COUNT, AUTOMATED 207 10^3/uL (150-450); RED BLOOD COUNT 3.95 10^6/uL (4.00-5.40); WHITE BLOOD COUNT 7.2 10^3/uL (4.0-10.0)
[2024-07-18 13:17] LABS: C REACTIVE PROTEIN QUANTITATIV 0.7 MG/DL (<1.0)
[2024-07-18 13:19] LABS: BILIRUBIN,TOTAL 0.4 MG/DL (0.3-1.2); CALCIUM LEVEL 9.9 MG/DL (8.3-10.6); CREATININE FOR GFR 0.99 MG/DL (0.55-1.30); GLOMERULAR FILTRATION RATE 58.7 (>39); POTASSIUM SERUM 4.2 MMOL/L (3.5-5.1); TOTAL PROTEIN 6.6 G/DL (5.7-8.2)
== END ==
LOC: M WUC 10:34
PROVIDERS: ATTEND Internal Medicine Rheumatology
DX: Z79.899 Other long term (current) drug therapy (principal)

== ENCOUNTER → 2024-08-25 | Outpatient (CLI) | payer MEDICARE ==
[2024-08-25 17:15] LABS: BASO % 0.1 % (0.0-1.0); EOS # 0.3 10^3/uL (0.0-0.5); EOS % 2.5 % (0.0-3.0); HEMATOCRIT 42.9 % (36.0-47.0); HEMOGLOBIN 13.5 g/dl (12.0-15.5); LYMPH # 1.1 10^3/uL (1.5-5.0); LYMPH % 10.7 % (24.0-44.0); MEAN CORPUSCULAR HEMOGLOBIN 31.2 pg (27.0-33.0); MEAN CORPUSCULAR HGB CONC 31.5 g/dl (32.0-36.5); MEAN CORPUSCULAR VOLUME 99.1 fl (80.0-96.0); MONO % 9.9 % (2.0-8.0); NEUTROPHILS # 7.5 10^3/uL (1.5-8.5); NEUTROPHILS % 76.4 % (36.0-66.0); PLATELET COUNT, AUTOMATED 219 10^3/uL (150-450); RED BLOOD COUNT 4.33 10^6/uL (4.00-5.40)
[2024-08-25 17:19] LABS: AMORPHOUS SEDIMENT SMALL (NEGATIVE); APPEARANCE, URINE TURBID (CLEAR); BACTERIA, URINE AUTO NEGATIVE (NEGATIVE); BILIRUBIN, URINE AUTO NEGATIVE (NEGATIVE); BLOOD, URINE BLOOD NEGATIVE (NEGATIVE); CALCIUM OXALATE CRYSTALS SMALL; COLOR, URINE AMBER (YELLOW); GLUCOSE, URINE (UA) AUTO NEGATIVE (NEGATIVE); KETONE, URINE AUTO TRACE mg/dL (NEGATIVE); LEUKOCYTE ESTERASE, URINE AUTO TRACE (NEGATIVE); MUCUS, URINE SMALL (NEGATIVE); NITRITE, URINE AUTO NEGATIVE (NEGATIVE); PROTEIN, URINE AUTO 1+ mg/dL (NEGATIVE); RBC, URINE AUTO 3 /HPF (0-3); SPECIFIC GRAVITY URINE AUTO 1.026 (1.002-1.035); SQUAMOUS EPITHELIAL CELL UR AU 1 /HPF (0-6); UROBILINOGEN, URINE AUTO 0.2 mg/dL (0.0-2.0); WBC, URINE AUTO 3 /HPF (0-3)
[2024-08-25 17:31] LABS: ALBUMIN 4.2 G/DL (3.2-5.2); BILIRUBIN,TOTAL 0.4 MG/DL (0.3-1.2); CALCIUM LEVEL 10.2 MG/DL (8.3-10.6); CREATININE FOR GFR 0.99 MG/DL (0.55-1.30); GLOMERULAR FILTRATION RATE 58.7 (>39); POTASSIUM SERUM 4.3 MMOL/L (3.5-5.1); TOTAL PROTEIN 7.3 G/DL (5.7-8.2)
[2024-08-25 17:33] LABS: THYROID STIMULATING HORMONE 1.826 uIU/ML (0.55-4.78)
[2024-08-25 17:34] LABS: CREATININE, URINE 259.9 MG/DL; MAU/CREAT RATIO 16.5 MCG/MG (0.0-30.0)
[2024-08-26 07:23] LABS: WHITE BLOOD COUNT 9.9 10^3/uL (4.0-10.0)
== END ==
LOC: M WUC 11:17
PROVIDERS: ATTEND Family Medicine
DX: I10 Essential (primary) hypertension (principal); E03.9 Hypothyroidism, unspecified; K21.9 Gastro-esophageal reflux disease without esophagitis

== ENCOUNTER → 2024-08-28 | Outpatient (CLI) | payer MEDICARE ==
[2024-08-28 12:59] LABS: EOS # 0.1 10^3/uL (0.0-0.5); EOS % 1.4 % (0.0-3.0); HEMATOCRIT 40.1 % (36.0-47.0); LYMPH # 0.6 10^3/uL (1.5-5.0); LYMPH % 7.1 % (24.0-44.0); MEAN CORPUSCULAR HEMOGLOBIN 31.3 pg (27.0-33.0); MEAN CORPUSCULAR HGB CONC 32.4 g/dl (32.0-36.5); MEAN CORPUSCULAR VOLUME 96.6 fl (80.0-96.0); MONO # 0.5 10^3/uL (0.0-0.8); MONO % 5.8 % (2.0-8.0); NEUTROPHILS # 7.4 10^3/uL (1.5-8.5); NEUTROPHILS % 85.2 % (36.0-66.0); PLATELET COUNT, AUTOMATED 206 10^3/uL (150-450); RED BLOOD COUNT 4.15 10^6/uL (4.00-5.40); WHITE BLOOD COUNT 8.6 10^3/uL (4.0-10.0)
[2024-08-28 13:09] LABS: ERYTHROCYTE SEDIMENTATION RATE 25 mm/hr (0-30)
[2024-08-28 13:28] LABS: ALKALINE PHOSPHATASE 115 U/L (35-104); ALT/SGPT 22 U/L (7.0-40); AST/SGOT 22 U/L (<34); BILIRUBIN,TOTAL 0.6 MG/DL (0.3-1.2); BLOOD UREA NITROGEN 14 MG/DL (9-23); CARBON DIOXIDE LEVEL 30 MMOL/L (20-31); CHLORIDE LEVEL 104 MMOL/L (98-107); CREATININE FOR GFR 0.92 MG/DL (0.55-1.30); GLOMERULAR FILTRATION RATE > 60.0 (>39); GLUCOSE, FASTING 94 MG/DL (74-106); POTASSIUM SERUM 4.5 MMOL/L (3.5-5.1); SODIUM LEVEL 141 MMOL/L (136-145); TOTAL PROTEIN 7.1 G/DL (5.7-8.2)
== END ==
LOC: M WUC 10:54
PROVIDERS: ATTEND Internal Medicine Rheumatology
DX: M06.09 Rheumatoid arthritis without rheumatoid factor, multiple sites (principal); M89.49 Other hypertrophic osteoarthropathy, multiple sites; H04.123 Dry eye syndrome of bilateral lacrimal glands; Z79.899 Other long term (current) drug therapy

== ENCOUNTER → 2024-09-03 | Outpatient (CLI) | payer MEDICARE ==
[~2024-09-03] VITALS: Ht 157.5 cm; Wt 89.8 kg
[2024-09-03 10:16] VITALS: BP 184/78; O2SAT 95
== END ==
LOC: M PAL 10:06
PROVIDERS: ATTEND Nurse Practitioner Adult Health
DX: G89.29 Other chronic pain (principal); M06.09 Rheumatoid arthritis without rheumatoid factor, multiple sites; M19.90 Unspecified osteoarthritis, unspecified site; M79.7 Fibromyalgia; R53.82 Chronic fatigue, unspecified; M81.0 Age-related osteoporosis without current pathological fracture; Z51.5 Encounter for palliative care; Z79.51 Long term (current) use of inhaled steroids; Z79.52 Long term (current) use of systemic steroids; Z79.631 Long term (current) use of antimetabolite agent; Z79.890 Hormone replacement therapy; Z79.891 Long term (current) use of opiate analgesic; Z79.899 Other long term (current) drug therapy; Z88.0 Allergy status to penicillin; Z88.1 Allergy status to other antibiotic agents; Z88.2 Allergy status to sulfonamides; Z88.8 Allergy status to other drugs, medicaments and biological substances; Z90.710 Acquired absence of both cervix and uterus; Z90.722 Acquired absence of ovaries, bilateral; Z90.79 Acquired absence of other genital organ(s); Z96.643 Presence of artificial hip joint, bilateral; Z96.651 Presence of right artificial knee joint

== ENCOUNTER → 2024-09-24 | Outpatient (CLI) | payer MEDICARE ==
[2024-09-24 17:29] LABS: C REACTIVE PROTEIN QUANTITATIV 0.76 MG/DL (<1.0)
[2024-09-24 17:31] LABS: BASO % 0.1 % (0.0-1.0); BILIRUBIN,TOTAL 0.5 MG/DL (0.3-1.2); CALCIUM LEVEL 10.3 MG/DL (8.3-10.6); CREATININE FOR GFR 1.08 MG/DL (0.55-1.30); EOS # 0.1 10^3/uL (0.0-0.5); EOS % 1.3 % (0.0-3.0); GLOMERULAR FILTRATION RATE 53.1 (>39); HEMATOCRIT 41.9 % (36.0-47.0); HEMOGLOBIN 13.4 g/dl (12.0-15.5); LYMPH # 0.8 10^3/uL (1.5-5.0); LYMPH % 9.1 % (24.0-44.0); MEAN CORPUSCULAR HEMOGLOBIN 32.1 pg (27.0-33.0); MEAN CORPUSCULAR VOLUME 100.2 fl (80.0-96.0); MONO # 0.5 10^3/uL (0.0-0.8); MONO % 5.3 % (2.0-8.0); NEUTROPHILS # 7.8 10^3/uL (1.5-8.5); NEUTROPHILS % 83.8 % (36.0-66.0); PLATELET COUNT, AUTOMATED 207 10^3/uL (150-450); POTASSIUM SERUM 4.3 MMOL/L (3.5-5.1); RED BLOOD COUNT 4.18 10^6/uL (4.00-5.40); TOTAL PROTEIN 7.1 G/DL (5.7-8.2); WHITE BLOOD COUNT 9.3 10^3/uL (4.0-10.0)
[2024-09-24 18:26] LABS: ERYTHROCYTE SEDIMENTATION RATE 22 mm/hr (0-30)
== END ==
LOC: M WUC 10:59
PROVIDERS: ATTEND Internal Medicine Rheumatology
DX: M06.09 Rheumatoid arthritis without rheumatoid factor, multiple sites (principal); H04.123 Dry eye syndrome of bilateral lacrimal glands; Z79.899 Other long term (current) drug therapy

== ENCOUNTER → 2024-10-16 | Outpatient (CLI) | payer MEDICARE ==
[2024-10-16 12:10] LABS: BASO % 0.1 % (0.0-1.0); EOS # 0.2 10^3/uL (0.0-0.5); EOS % 2.5 % (0.0-3.0); HEMATOCRIT 40.1 % (36.0-47.0); LYMPH % 13.9 % (24.0-44.0); MEAN CORPUSCULAR HEMOGLOBIN 32.3 pg (27.0-33.0); MEAN CORPUSCULAR HGB CONC 32.4 g/dl (32.0-36.5); MEAN CORPUSCULAR VOLUME 99.5 fl (80.0-96.0); MONO # 0.6 10^3/uL (0.0-0.8); MONO % 8.9 % (2.0-8.0); NEUTROPHILS # 5.3 10^3/uL (1.5-8.5); NEUTROPHILS % 74.2 % (36.0-66.0); PLATELET COUNT, AUTOMATED 195 10^3/uL (150-450); RED BLOOD COUNT 4.03 10^6/uL (4.00-5.40); WHITE BLOOD COUNT 7.1 10^3/uL (4.0-10.0)
[2024-10-16 12:18] LABS: ERYTHROCYTE SEDIMENTATION RATE 16 mm/hr (0-30)
[2024-10-16 12:42] LABS: ALBUMIN 4.1 G/DL (3.2-5.2); BILIRUBIN,TOTAL 0.5 MG/DL (0.3-1.2); C REACTIVE PROTEIN QUANTITATIV 0.87 MG/DL (<1.0); CREATININE FOR GFR 0.99 MG/DL (0.55-1.30); GLOMERULAR FILTRATION RATE 58.7 (>39); POTASSIUM SERUM 4.4 MMOL/L (3.5-5.1); TOTAL PROTEIN 6.7 G/DL (5.7-8.2)
== END ==
LOC: M WUC 10:13
PROVIDERS: ATTEND Internal Medicine Rheumatology
DX: M06.09 Rheumatoid arthritis without rheumatoid factor, multiple sites (principal); M89.49 Other hypertrophic osteoarthropathy, multiple sites; H04.123 Dry eye syndrome of bilateral lacrimal glands

== ENCOUNTER → 2024-11-24 | Outpatient (CLI) | payer MEDICARE ==
[~2024-11-24] VITALS: Ht 158.8 cm; Wt 89.6 kg
[2024-11-24 15:53] VITALS: BP 124/78
== END ==
LOC: M PAL 15:26
PROVIDERS: ATTEND Family Medicine
DX: M06.9 Rheumatoid arthritis, unspecified (principal); G89.29 Other chronic pain; Z79.4 Long term (current) use of insulin; Z79.82 Long term (current) use of aspirin; Z79.891 Long term (current) use of opiate analgesic; Z79.899 Other long term (current) drug therapy; Z87.81 Personal history of (healed) traumatic fracture

== ENCOUNTER → 2025-01-10 | Outpatient (REF) | payer MEDICARE | LOC: M LAB REF 20:00 | PROVIDERS: ATTEND Physician Assistant Medical | DX: R50.9 Fever, unspecified (principal) ==

== ENCOUNTER → 2025-01-10 | Outpatient (CLI) | payer MEDICARE ==
[2025-01-10 14:42] LABS: EOS % 0.3 % (0.0-3.0); HEMATOCRIT 37.6 % (36.0-47.0); HEMOGLOBIN 12.7 g/dl (12.0-15.5); LYMPH # 0.5 10^3/uL (1.5-5.0); LYMPH % 6.8 % (24.0-44.0); MEAN CORPUSCULAR HEMOGLOBIN 32.3 pg (27.0-33.0); MEAN CORPUSCULAR HGB CONC 33.8 g/dl (32.0-36.5); MEAN CORPUSCULAR VOLUME 95.7 fl (80.0-96.0); MONO # 0.9 10^3/uL (0.0-0.8); MONO % 11.6 % (2.0-8.0); NEUTROPHILS # 6.4 10^3/uL (1.5-8.5); NEUTROPHILS % 80.5 % (36.0-66.0); PLATELET COUNT, AUTOMATED 223 10^3/uL (150-450); RED BLOOD COUNT 3.93 10^6/uL (4.00-5.40)
[2025-01-10 14:51] LABS: APPEARANCE, URINE HAZY (CLEAR); BACTERIA, URINE AUTO 1+ (NEGATIVE); BILIRUBIN, URINE AUTO NEGATIVE (NEGATIVE); BLOOD, URINE BLOOD NEGATIVE (NEGATIVE); COLOR, URINE AMBER (YELLOW); GLUCOSE, URINE (UA) AUTO NEGATIVE (NEGATIVE); KETONE, URINE AUTO TRACE mg/dL (NEGATIVE); LEUKOCYTE ESTERASE, URINE AUTO 2+ (NEGATIVE); MUCUS, URINE SMALL (NEGATIVE); NITRITE, URINE AUTO POSITIVE (NEGATIVE); PROTEIN, URINE AUTO 2+ mg/dL (NEGATIVE); RBC, URINE AUTO 17 /HPF (0-3); SPECIFIC GRAVITY URINE AUTO 1.023 (1.002-1.035); SQUAMOUS EPITHELIAL CELL UR AU 1 /HPF (0-6); WBC, URINE AUTO 95 /HPF (0-3)
[2025-01-10 15:10] LABS: CREATININE FOR GFR 1.01 MG/DL (0.55-1.30); GLOMERULAR FILTRATION RATE 57.4 (>39); POTASSIUM SERUM 4.5 MMOL/L (3.5-5.1)
== END ==
LOC: M LAB 14:02
PROVIDERS: ATTEND Physician Assistant Medical
DX: R50.9 Fever, unspecified (principal)

== ENCOUNTER → 2025-02-23 | Outpatient (CLI) | payer MEDICARE ==
[~2025-02-23] VITALS: Ht 152.4 cm; Wt 81.3 kg
[~2025-02-23] MED LIST changes: +PRED-1142 PO; -PRED1TABL PO
[2025-02-23 13:54] VITALS: BP 157/83; O2SAT 98
== END ==
LOC: M PAL 12:52
PROVIDERS: ATTEND Physician Assistant
DX: Z51.5 Encounter for palliative care (principal); M06.9 Rheumatoid arthritis, unspecified; G89.29 Other chronic pain; Z79.891 Long term (current) use of opiate analgesic; Z63.6 Dependent relative needing care at home; Z79.899 Other long term (current) drug therapy; Z88.5 Allergy status to narcotic agent; Z88.2 Allergy status to sulfonamides; Z88.0 Allergy status to penicillin; Z88.1 Allergy status to other antibiotic agents

== ENCOUNTER → 2025-03-02 | Outpatient (CLI) | payer MEDICARE ==
[2025-03-02 14:15] LABS: EOS # 0.1 10^3/uL (0.0-0.5); EOS % 1.1 % (0.0-3.0); HEMATOCRIT 41.6 % (36.0-47.0); HEMOGLOBIN 13.1 g/dl (12.0-15.5); LYMPH # 0.8 10^3/uL (1.5-5.0); LYMPH % 8.4 % (24.0-44.0); MEAN CORPUSCULAR HEMOGLOBIN 31.7 pg (27.0-33.0); MEAN CORPUSCULAR HGB CONC 31.5 g/dl (32.0-36.5); MEAN CORPUSCULAR VOLUME 100.7 fl (80.0-96.0); MONO # 0.8 10^3/uL (0.0-0.8); MONO % 7.8 % (2.0-8.0); NEUTROPHILS # 8.1 10^3/uL (1.5-8.5); NEUTROPHILS % 82.3 % (36.0-66.0); PLATELET COUNT, AUTOMATED 179 10^3/uL (150-450); RED BLOOD COUNT 4.13 10^6/uL (4.00-5.40); WHITE BLOOD COUNT 9.9 10^3/uL (4.0-10.0)
[2025-03-02 14:16] LABS: BILIRUBIN,TOTAL 0.4 MG/DL (0.3-1.2); C REACTIVE PROTEIN QUANTITATIV 1.27 MG/DL (<1.0); CALCIUM LEVEL 9.7 MG/DL (8.3-10.6); GLOMERULAR FILTRATION RATE 59.9 (>39); POTASSIUM SERUM 4.3 MMOL/L (3.5-5.1); TOTAL PROTEIN 6.8 G/DL (5.7-8.2)
[2025-03-02 14:29] LABS: ERYTHROCYTE SEDIMENTATION RATE 32 mm/hr (0-30)
== END ==
LOC: M WUC 11:41
PROVIDERS: ATTEND Internal Medicine Rheumatology
DX: M06.09 Rheumatoid arthritis without rheumatoid factor, multiple sites (principal); Z79.899 Other long term (current) drug therapy; M89.49 Other hypertrophic osteoarthropathy, multiple sites

== ENCOUNTER → 2025-04-16 | Outpatient (CLI) | payer MEDICARE ==
[~2025-04-16] MED LIST changes: -EQL50TAB2 PO; +VITA1TAB82 PO
== END ==
LOC: M RAD 14:44
PROVIDERS: ATTEND Family Medicine
DX: M79.605 Pain in left leg (principal); I80.02 Phlebitis and thrombophlebitis of superficial vessels of left lower extremity

== ENCOUNTER → 2025-04-20 | Outpatient (CLI) | payer MEDICARE ==
[2025-04-20 14:26] LABS: BASO # 0.0 10^3/uL (0.0-0.2); BASO % 0.0 % (0.0-1.0); EOS # 0.1 10^3/uL (0.0-0.5); EOS % 1.5 % (0.0-3.0); LYMPH # 0.8 10^3/uL (1.5-5.0); LYMPH % 8.4 % (24.0-44.0); MONO # 0.6 10^3/uL (0.0-0.8); MONO % 6.8 % (2.0-8.0); NEUTROPHILS # 7.4 10^3/uL (1.5-8.5); NEUTROPHILS % 82.9 % (36.0-66.0); PLATELET COUNT, AUTOMATED 171 10^3/uL (150-450)
[2025-04-20 14:28] LABS: CALCIUM LEVEL 9.8 MG/DL (8.3-10.6); CARBON DIOXIDE LEVEL 35.0 MMOL/L (20-31); CHLORIDE LEVEL 100.0 MMOL/L (98-107); CREATININE FOR GFR 0.93 MG/DL (0.55-1.30); GLOMERULAR FILTRATION RATE 65.3 (>39); POTASSIUM SERUM 4.4 MMOL/L (3.5-5.1); SODIUM LEVEL 142.0 MMOL/L (136-145); VITAMIN B12 LEVEL 630.0 PG/ML (211-911)
== END ==
LOC: M WUC 11:38
PROVIDERS: ATTEND Family Medicine
DX: M79.605 Pain in left leg (principal); K14.0 Glossitis

== ENCOUNTER → 2025-05-26 | Outpatient (CLI) | payer MEDICARE ==
[~2025-05-26] VITALS: Ht 157.5 cm; Wt 80.6 kg
[2025-05-26 10:15] VITALS: BP 146/70; O2SAT 97
== END ==
LOC: M PAL 09:57
PROVIDERS: ATTEND Physician Assistant
DX: Z51.5 Encounter for palliative care (principal); M06.9 Rheumatoid arthritis, unspecified; Z79.891 Long term (current) use of opiate analgesic; Z88.1 Allergy status to other antibiotic agents; Z88.0 Allergy status to penicillin; Z88.5 Allergy status to narcotic agent; Z88.2 Allergy status to sulfonamides; Z88.6 Allergy status to analgesic agent

== ENCOUNTER → 2025-05-29 | Outpatient (REF) | payer MEDICARE | LOC: M SFHCRHEU 12:56 | PROVIDERS: ATTEND Internal Medicine Rheumatology | DX: Z53.9 Procedure and treatment not carried out, unspecified reason (principal); H04.123 Dry eye syndrome of bilateral lacrimal glands; M06.09 Rheumatoid arthritis without rheumatoid factor, multiple sites; M89.49 Other hypertrophic osteoarthropathy, multiple sites; Z79.899 Other long term (current) drug therapy ==

== ENCOUNTER → 2025-06-14 | Outpatient (CLI) | payer MEDICARE ==
[2025-06-14 11:43] LABS: BASO # 0.0 10^3/uL (0.0-0.2); BASO % 0.0 % (0.0-1.0); EOS # 0.1 10^3/uL (0.0-0.5); EOS % 2.3 % (0.0-3.0); LYMPH # 0.6 10^3/uL (1.5-5.0); LYMPH % 10.6 % (24.0-44.0); MONO # 0.6 10^3/uL (0.0-0.8); MONO % 9.7 % (2.0-8.0); NEUTROPHILS # 4.7 10^3/uL (1.5-8.5); NEUTROPHILS % 76.9 % (36.0-66.0); PLATELET COUNT, AUTOMATED 165 10^3/uL (150-450)
[2025-06-14 12:10] LABS: ALT/SGPT 21 U/L (7.0-40); AST/SGOT 22 U/L (<34); C REACTIVE PROTEIN QUANTITATIV < 0.50 MG/DL (<1.0); CALCIUM LEVEL 9.7 MG/DL (8.3-10.6); CARBON DIOXIDE LEVEL 33 MMOL/L (20-31); CHLORIDE LEVEL 103 MMOL/L (98-107); CREATININE FOR GFR 1.00 MG/DL (0.55-1.30); GLOMERULAR FILTRATION RATE 59.5 (>39); POTASSIUM SERUM 4.5 MMOL/L (3.5-5.1); SODIUM LEVEL 144 MMOL/L (136-145)
[2025-06-14 14:26] LABS: ERYTHROCYTE SEDIMENTATION RATE 12 mm/hr (0-30)
== END ==
LOC: M LAB 11:12
PROVIDERS: ATTEND Internal Medicine Rheumatology
DX: H04.123 Dry eye syndrome of bilateral lacrimal glands (principal); M06.09 Rheumatoid arthritis without rheumatoid factor, multiple sites; M89.49 Other hypertrophic osteoarthropathy, multiple sites; Z79.899 Other long term (current) drug therapy

== ENCOUNTER → 2025-09-17 | Outpatient (CLI) | payer MEDICARE | LOC: M WUC 14:43 | PROVIDERS: ATTEND Family Medicine | DX: I10 Essential (primary) hypertension (principal); E03.9 Hypothyroidism, unspecified ==

== ENCOUNTER → 2025-09-17 | Outpatient (CLI) | payer MEDICARE ==
[2025-09-17 17:26] LABS: C REACTIVE PROTEIN QUANTITATIV 2.45 MG/DL (<1.0)
[2025-09-17 17:29] LABS: BASO # 0.0 10^3/uL (0.0-0.2); BASO % 0.0 % (0.0-1.0); EOS # 0.0 10^3/uL (0.0-0.5); EOS % 0.3 % (0.0-3.0); LYMPH # 0.7 10^3/uL (1.5-5.0); LYMPH % 7.4 % (24.0-44.0); MONO # 0.5 10^3/uL (0.0-0.8); MONO % 4.7 % (2.0-8.0); NEUTROPHILS # 8.4 10^3/uL (1.5-8.5); NEUTROPHILS % 87.3 % (36.0-66.0); PLATELET COUNT, AUTOMATED 227 10^3/uL (150-450)
[2025-09-17 17:34] LABS: ALT/SGPT 25.0 U/L (7.0-40); AST/SGOT 31.0 U/L (<34); CALCIUM LEVEL 9.8 MG/DL (8.3-10.6); CARBON DIOXIDE LEVEL 33.0 MMOL/L (20-31); CHLORIDE LEVEL 101.0 MMOL/L (98-107); CREATININE FOR GFR 0.99 MG/DL (0.55-1.30); GLOMERULAR FILTRATION RATE 60.2 (>39); POTASSIUM SERUM 4.6 MMOL/L (3.5-5.1); SODIUM LEVEL 143.0 MMOL/L (136-145)
== END ==
LOC: M WUC 14:45
PROVIDERS: ATTEND Internal Medicine Rheumatology
DX: M06.09 Rheumatoid arthritis without rheumatoid factor, multiple sites (principal); H04.123 Dry eye syndrome of bilateral lacrimal glands; M89.49 Other hypertrophic osteoarthropathy, multiple sites; Z79.899 Other long term (current) drug therapy

== ENCOUNTER → 2025-09-23 | Outpatient (CLI) | payer MEDICARE ==
[~2025-09-23] VITALS: Ht 160 cm; Wt 79.9 kg
[2025-09-23 13:12] VITALS: BP 170/78; O2SAT 95
== END ==
LOC: M PAL 12:59
PROVIDERS: ATTEND Physician Assistant
DX: Z51.5 Encounter for palliative care (principal); M06.9 Rheumatoid arthritis, unspecified; G89.29 Other chronic pain; Z87.828 Personal history of other (healed) physical injury and trauma; Z87.312 Personal history of (healed) stress fracture; Z79.891 Long term (current) use of opiate analgesic; Z88.2 Allergy status to sulfonamides; Z88.6 Allergy status to analgesic agent; Z88.0 Allergy status to penicillin; Z88.1 Allergy status to other antibiotic agents; Z79.52 Long term (current) use of systemic steroids
CPT/HCPCS: G0463 ×2